=== PATIENT | female | born 1995 | race Caucasian/White ===

== ENCOUNTER 2019-08-03 09:54 | Emergency (ER) | payer OTHER, SELFPAY ==
[2019-08-03 09:57] VITALS: BP 122/79; PULSE 79; RESP 18; TEMP 36.3; O2SAT 100
--- NOTE | 2019-08-03 10:18 | ED.NAVMDI ---
HPI - Nausea/Vomiting/Diarrhea General Chief complaint: Nausea/Vomiting/Diarrhea Stated complaint: n/v/d Time Seen by Provider: 08/03/19 10:04 History of Present Illness HPI Narrative: SHe has had nausea, vomiting, and diarrhea since yesterday. She has nt been able to keep down any fluids or solid food. She developed some mild suprapubic pain after vmiting today. No fever, sick contacts, SOB. Related Data Allergies Allergy/AdvReac Type Severity Reaction Status Date / Time codeine Allergy Severe Anaphylaxis Verified 08/03/19 10:18 Penicillins Allergy Severe Anaphylaxis Verified 08/03/19 10:18 shellfish derived Allergy Severe Anaphylaxis Verified 08/03/19 10:18 ibuprofen [From Advil] Allergy Intermediate Hives Verified 08/03/19 10:18 iodine Allergy Intermediate Hives Verified 08/03/19 10:18 Review of Systems Review of Systems: All systems reviewed & are unremarkable except as noted in HPI and below Constitutional: Constitutional: Denies fever(s) Eyes: Eyes: Reports no additional eye complaints ENT: Denies sore throat Cardiovascular: Cardiovascular: Denies chest pain Respiratory: Respiratory: Denies cough and Denies dyspnea Gastrointestinal: Gastrointestinal: Reports abdominal pain, Reports diarrhea, Reports nausea and Reports vomiting Genitourinary: Genitourinary: Denies hematuria and Denies dysuria Musculoskeletal: Musculoskeletal: Denies myalgias Neurologic: Denies dizziness and Denies weakness Endocrine: Endocrine: Denies polydipsia and Denies polyuria Hematologic/Lymphatic: Hematologic/Lymphatic: Denies easy bleeding and Denies easy bruising PMFSH Family History Family History Other Hypertension Social History Social History Smoking status: Current every day smoker Alcohol intake: current Gender identity (if verbalized by the patient): Female Exam Const: General: no acute distress and alert Orientation/consciousness: patient oriented x3 HENMT: Mouth: Yes dry mucous membranes Resp: Effort & Inspection: normal respiratory effort Auscultation: clear to auscultation bilaterally Cardio: Rate: regular rate Rhythm: regular rhythm GI: GI Palp: Yes Soft to palpation and No Tenderness to palpation present (GI) Auscultation: normal bowel sounds : General: Yes no CVA tenderness Skin: General skin exam: normal color Rashes: no rashes Wounds: no wounds Neuro: General: patient oriented x3, moves all extremities and no focal motor deficits Speech: normal speech Gait exam (Neuro): Normal gait present Extrem: General: normal to inspection Psych: Appearance: grossly normal Mental Status: mental status grossly normal Affect: normal affect Thought content: Yes Normal thought content present Course Vital Signs Vital signs: Vital Signs Temperature 36.3 C L 08/03/19 09:57 Pulse Rate 79 08/03/19 09:57 Respiratory Rate 18 08/03/19 09:57 Blood Pressure 122/79 08/03/19 09:57 Pulse Oximetry 100 08/03/19 09:57 Temperature 36.3 C L 08/03/19 09:57 Pulse Rate 70 08/03/19 12:51 Respiratory Rate 16 08/03/19 12:51 Blood Pressure 112/69 08/03/19 12:51 Pulse Oximetry 100 08/03/19 12:51 MDM - Nausea/Vomiting/Diarrhea Differential Diagnosis Differential diagnosis: Likely food poisoning, gastroenteritis and dehydration Medical Records Attestation: I reviewed the patient's medical records. Lab Data Attestation: I reviewed the patient's lab results. Result diagrams: 08/03/19 10:22 08/03/19 10:22 Labs: Lab Results 08/03/19 08/03/19 08/03/19 Range/Units 10:22 10:22 10:22 WBC 9.2 (4.5-10.0) K/mm3 RBC 5.22 (4.2-5.4) M/mm3 Hgb 15.4 H (12.0-15.0) g/dL Hct 46.0 (37.0-47.0) % MCV 88.1 (80-100) fl MCH 29.5 (26-34) pg MCHC 33.5 (32-36) g/dl RDW 12.7 (11.5-14.5) % Plt Count 235 (150
[2019-08-03 10:26] VITALS: BP 114/70; PULSE 66
[2019-08-03 10:27] VITALS: BP 116/74; PULSE 76
[2019-08-03 10:28] VITALS: BP 102/60; PULSE 82
[2019-08-03 10:29] LABS: Basophils Percent Auto 0.2 % (0.2-1.2); Eosinophils Absolute Auto 0.5 K/mm3 (0-0.3); Eosinophils Percent Auto 5.9 % (0-4.4); Hemoglobin 15.4 g/dL (12.0-15.0); Immature Granulocyte Absolute 0.02 K/mm3 (0.00-0.031); Immature Granulocyte Percent A 0.2 % (0-0.5); Lymphocytes Absolute Auto 1.28 K/mm3 (0.9-3.2); Lymphocytes Percent Auto 13.9 % (18.3-44.2); Mean Corpuscular HGB Conc 33.5 g/dl (32-36); Mean Corpuscular Hemoglobin 29.5 pg (26-34); Mean Corpuscular Volume 88.1 fl (80-100); Mean Platelet Volume 9.3 fl (7.4-10.4); Monocytes Absolute Auto 0.5 K/mm3 (0.1-0.6); Monocytes Percent Auto 5.5 % (2.6-8.5); Neutrophils Absolute Auto 6.9 K/mm3 (1.3-6.7); Neutrophils Percent Auto 74.3 % (45.5-73.1); Platelet Count Result 235 k/mm3 (150-375); Red Blood Count 5.22 M/mm3 (4.2-5.4); Red Cell Distribution Width 12.7 % (11.5-14.5); White Blood Count 9.2 K/mm3 (4.5-10.0)
[2019-08-03] MEDS: SODIUM CHLORIDE 0.9% IV 2,000 ML 999 ML IV CONT (10:30)
[2019-08-03 10:31] LABS: Add Urine Microscopic? NO; Appearance Urine Clear (Clear); Bilirubin Urine Negative (Negative); Blood Urine Negative (Negative); Color Urine Yellow (Yellow); Glucose Urine UA Negative (Negative); Ketones Urine Negative (Negative); Leukocyte Esterase Ur Negative LEU/UL (Negative); Nitrate Urine Negative (Negative); Protein Urine Negative (Negative); Specific Grav Ur 1.016 (1.001-1.035); Urobilinogen Urine Negative mg/dL (<2.0)
[2019-08-03] MEDS: ONDANSETRON INJ 4 MG/2 ML VIAL IV PUSH (10:32)
[2019-08-03 10:40] LABS: Alanine Aminotransferase 17 U/L (4-35); Alkaline Phosphatase 92 U/L (38-126); Aspartate Amino Transferase 19 U/L (14-36); Bilirubin,Total 0.7 mg/dL (0.2-1.3); Blood Urea Nitrogen 13 mg/dL (7-17); Calcium 9.2 mg/dL (8.4-10.2); Carbon Dioxide 20 mmol/L (22-30); Chloride 108 mmol/L (98-107); Estimated CRCL calculation 94 ml/min; Estimated Glomerular Filt Rate > 60; Glucose 92 mg/dL (65-105); Lipase 76 U/L (23-300); Potassium 3.6 mmol/L (3.4-5.0); Sodium 138 mmol/L (137-145)
[2019-08-03 12:51] VITALS: BP 112/69; PULSE 70; RESP 16; O2SAT 100
== END 2019-08-03 12:52 | disposition home or self-care (01) ==
PROVIDERS: Emergency Provider Emergency Medicine; PCP Family Medicine
DX: K52.9 Noninfective gastroenteritis and colitis, unspecified (principal); F17.200 Nicotine dependence, unspecified, uncomplicated
CPT/HCPCS: 36415; 80053; 81003; 81025; 83690; 85025; 96361; 96374; 99284; J2405; J7030

== ENCOUNTER 2024-05-15 15:36 | Emergency (ER) | payer OTHER, SELFPAY ==
--- NOTE | ~2024-05-15 | XR_ITS ---
EXAMINATION: XR chest 2V DATE: 05/15/2024 16:45 INDICATION: 5 days of productive cough TECHNIQUE: PA and lateral views of the chest were obtained. COMPARISON: Chest radiograph dated 01/26/2015 FINDINGS: The lungs remain clear with no focal airspace opacities, pulmonary edema, pleural effusion or pneumot horax. The cardiomediastinal silhouette is normal. Visualized bones and soft tissues are unremarkable . IMPRESSION: 1. Normal chest radiograph. Reviewed, dictated and finalized at location A. YTICAL LAB TECHNICIAN IMPRESSION: 1. Normal chest radiograph.
[2024-05-15 15:47] VITALS: BP 129/74; PULSE 85; RESP 20; TEMP 36.8; O2SAT 100
--- NOTE | 2024-05-15 16:38 | ED.URI ---
HPI - URI/Sore Throat General Chief Complaint: Upper Respiratory Infection Stated Complaint: Sinus/Bodyaches Time Seen by Provider: 05/15/24 17:12 Source: patient, RN notes reviewed and old records reviewed Mode of arrival: ambulatory Limitations: no limitations History of Present Illness HPI Narrative: Patient presents with complaints of 5 days of fever, cough, body aches, chills, sweats. Her mother has just been hospitalized with ?walking pneumonia?. Patient reports that she is very concerned that she has the same thing, because she does have asthma. She reports that she has had some episodes of wheezing. She is not in any distress at this time, including respiratory distress. She states that she has been using her albuterol inhaler more often than normal due to her cough. She voices no other concerns or complaints at this time. States that she has been taking Tylenol intermittently for symptoms with moderate relief Related Data Home Medications ?Medication ?Instructions ?Recorded ?Confirmed ?Last Taken ?Type aripiprazole 10 mg disintegrating mg 05/15/24 Unknown History tablet levetiracetam 1,000 mg tablet mg PO 05/15/24 Unknown History lorazepam 0.5 mg tablet mg 05/15/24 Unknown History oxcarbazepine 300 mg tablet mg 05/15/24 Unknown History paroxetine HCl 40 mg tablet mg PO 05/15/24 Unknown History quetiapine 50 mg tablet mg 05/15/24 Unknown History Allergies Allergy/AdvReac Type Severity Reaction Status Date / Time codeine Allergy Severe Anaphylaxis Verified 05/15/24 15:55 Penicillins Allergy Severe Anaphylaxis Verified 05/15/24 15:55 shellfish derived Allergy Severe Anaphylaxis Verified 05/15/24 15:55 ibuprofen (From Advil) Allergy Intermediate Hives Verified 05/15/24 15:55 iodine Allergy Intermediate Hives Verified 05/15/24 15:55 Review of Systems Review of Systems: All systems reviewed & are unremarkable except as noted in HPI and below Constitutional: Constitutional: Reports no additional constitutional complaints, Reports body ache(s), Reports chills, Reports fever(s), Reports headache(s) and Reports lethargy ENT: Reports system reviewed and no additional complaints, except as documented, Reports nasal congestion and Reports nasal discharge Cardiovascular: Cardiovascular: Reports no additional cardiovascular complaints Respiratory: Respiratory: Reports no additional respiratory complaints, Reports cough and Reports wheezing Gastrointestinal: Gastrointestinal: Reports no additional gastrointestinal complaints PMFSH Family History Family History Other Hypertension Social History Social History Smoking status: Current every day smoker Alcohol intake: current Gender identity (if verbalized by the patient): Female Comments At the time of my signature, I reviewed and agree with the nursing past medical, surgical, social, and family history. There is no relevant family history pertinent to the patient complaint. Exam Const: General: cooperative, no acute distress, alert and awake Orientation/consciousness: oriented to person, oriented to place and oriented to time HENMT: Head: normal to inspection Ears: TM's normal bilaterally Mouth: Yes moist mucous membranes Resp: Effort & Inspection: normal respiratory effort and able to speak in complete sentences Auscultation: clear to auscultation bilaterally, no crackles, no rales, no rhonchi and no wheezes Cardio: Palpation: normal PMI Rate: regular rate Rhythm: regular rhythm Heart sounds: S1 normal heart sound present and S2 normal heart sound present Neuro: General: oriented to person, oriented to place and oriented to time Cranial nerves: Yes CN's II-XII intact bilaterally Psych: Appearance: grossly normal Thought process: Normal thought process present Insight: Good insight present (Psych) Judgement: Good judgement present (Psych) Course Course Level of Care: Express Care Visit Vital Signs Vital signs: Vital Signs Temperature 98.3 F 05/15/24 15:47 Pulse Rate 85 05/15/24 15:47 Respiratory Rate 05/15/24 15:47 Blood Pressure 129/74 05/15/24 15:47 Pulse Oximetry 100 05/15/24 15:47 Oxygen Delivery Room Air 05/15/24 15:47 Temperature 98.3 F 05/15/24 15:47 Pulse Rate 85 05/15/24 15:47 Respiratory Rate 05/15/24 15:47 Blood Pressure 129/74 05/15/24 15:47 Pulse Oximetry 100 05/15/24 15:47 Oxygen Delivery Room Air 05/15/24 15:47 Reviewed MDM - URI/Sore Throat MDM Narrative Medical decision making narrative: Patient with history asthma, using inhaler more than normal. Negative flu, negative chest. Start prednisone burst, refill albuterol Discharge instructions reviewed with patient, as well as provided in writing per nursing staff. The instructions also include specific and strict return/GO TO THE ER as well as f/u information. All questions have been answered, and the patient deny any further questions with discharge and discharge plan. Some parts of this dictation were generated by voice recognition software and may contain typographical and/or grammatical inaccuracies. . Differential Diagnosis Differential diagnosis: Likely upper respiratory infection, sinusitis, viral infection, bronchitis and influenza Medical Records Attestation: I reviewed the patient's medical records. Lab Data Attestation: I reviewed the patient's lab results. Imaging Data Attestation: I personally reviewed and interpreted this imaging study as follows: My impression: No acute process Radiologist's impression: [facility] [address] [place] [address] XRay Report Signed Patient: Myrna Barclay : 1995 MR#: [id number] Age: 28 Acct:[id number] Loc: [facility] ADM Date: 05/15/24Attending Dr: Ordering Physician: Macey Quintero FNP Date of Service: 05/15/24 Procedure(s): XR chest 2V Accession Number(s): [id number] cc: Macey Quintero FNP; SENIOR CONTROL SYSTEMS ENGINEER PHYSICIAN~ EXAMINATION: XR chest 2V DATE: 05/15/2024 16:45 INDICATION: 5 days of productive cough TECHNIQUE: PA and lateral views of the chest were obtained. COMPARISON: Chest radiograph dated 01/26/2015 FINDINGS: The lungs remain clear with no focal airspace opacities, pulmonary edema, pleural effusion or pneumothorax. The cardiomediastinal silhouette is normal. Visualized bones and soft tissues are unremarkable. IMPRESSION: 1. Normal chest radiograph. Reviewed, dictated and finalized at location A. PPING SHOVEL OILER Please be advised this is a medical document. It is intended for [id number] communication. It is written in medical language and may contain unfamiliar abbreviations or verbiage. Medical documents are intended to carry relevant information, facts as evident, and the clinical opinion of the practitioner at the time of the encounter. This report may have been done utilizing a voice recognition system. Attempts have been made to correct errors. However, there may be uncorrected grammatical, spelling, and recognition errors present. The file time of this note does not necessarily represent the time of service. Dictated By: Mumtaz Ward MD 05/15/24 1658 Signed By: <Electronically signed by Mumtaz Ward MD in OV> Discharge Plan Discharge Clinical Impression: Upper respiratory infection Qualifiers: URI type: unspecified viral URI Qualified Code(s): J06.9 - Acute upper respiratory infection, unspecified Patient Disposition: Home, Self-Care Condition: Stable Instructions: Antibiotic Form, Influenza (ED) Additional Instructions: Use medications as prescribed. Follow with primary care provider. Emergency department for new or worse symptoms Patient Language: Swedish Prescriptions: New albuterol sulfate [Ventolin HFA] 90 mcg/actuation HFA aerosol inhaler 2 puff inhalation QID PRN (Reason: shortness of breath or wheezing) Qty: 8.5 0RF prednisone 50 mg tablet 50 mg PO DAILY Qty: 5 0RF No Action oxcarbazepine 300 mg tablet lorazepam 0.5 mg tablet paroxetine HCl 40 mg tablet PO quetiapine 50 mg tablet levetiracetam 1,000 mg tablet PO aripiprazole 10 mg tablet,disintegrating Follow-up/Referrals: PHYSICIAN,SENIOR CONTROL SYSTEMS ENGINEER [Primary Care Provider] - Time of Disposition: 17:18
[2024-05-15 17:05] LABS: EDINFLUASCREEN Negative (Negative); EDINFLUBSCREEN Negative (Negative)
== END 2024-05-15 17:28 | disposition home or self-care (01) ==
PROVIDERS: Emergency Provider Nurse Practitioner Family
DX: J06.9 Acute upper respiratory infection, unspecified (principal); Z20.822 Contact with and (suspected) exposure to COVID-19; F17.200 Nicotine dependence, unspecified, uncomplicated; J45.909 Unspecified asthma, uncomplicated
CPT/HCPCS: 71046; 87804; 99213; G0463

== ENCOUNTER 2024-05-26 06:02 | Inpatient (IN) | payer OTHER, SELFPAY ==
[2024-05-26] VITALS (15 sets, daily range): BP systolic 90–133; BP diastolic 41–87; PULSE 81–113; RESP 16–20; TEMP 36.9–39.6; O2SAT 96–100; BMI 28.9; BMI 28.8
--- NOTE | ~2024-05-26 | XR_ITS ---
EXAMINATION: XR chest 1V portable DATE: 05/29/2024 14:30 INDICATION: Pneumonia with right rib pain TECHNIQUE: frontal view of the chest was obtained. COMPARISON: Chest radiograph dated 05/26/2024 FINDINGS: Unchanged patchy airspace opacities in the right lower lung zone with worsening opacities in the midl gutierrez zone which abut the cephalad margin of the minor fissure likely in the right upper lobe. Left geraldine g remains clear. No pulmonary edema, pleural effusion or pneumothorax. The cardiomediastinal silhouet te is normal. Cholecystectomy clips in right upper quadrant. IMPRESSION: 1. Worsening airspace opacities in the right midlung zone with persistent opacity right lower lung zo ne consistent with worsening multifocal pneumonia. Reviewed, dictated and finalized at location A. RITY TEST ENGINEER IMPRESSION: 1. Worsening airspace opacities in the right midlung zone with persistent opaci ty right lower lung zone consistent with worsening multifocal pneumonia.
--- NOTE | ~2024-05-26 | XR_ITS ---
Clinical Indication: Cough PA and lateral views of the chest: Comparison: 05/15/2024 Findings: There is patchy consolidation involving the right middle and lower lobes. Possible minimal involvement at the right upper lobe and left lower lobe.. Cardiomediastinal silhouette is within nor mal limits. Bones and soft tissues are unremarkable. Impression: Multilobar pneumonia, worst in the right middle and lower lobes. Probable minimal involvement of the right upper and left lower lobes. Reviewed, dictated and finalized at location . JOINTER FEEDER Impression: Multilobar pneumonia, worst in the right middle and lower lobes. Probable minim al involvement of the right upper and left lower lobes.
[2024-05-26 06:57] LABS: Influenza A QL RT-PCR Positive (Negative); Influenza B QL RT-PCR Negative (Negative); RSV RNA, RT-PCR Negative (Negative); SARS-CoV-2 RNA PCR Negative (Negative)
--- OUTSIDE RECORDS SUMMARY | 2024-05-26 07:18 | XMS_ITS | Clinical Summary ---
Author Organization [facility] [employer] Address [address] [place] [address] Care Team Providers Care Railroad Brake Operator Name Role Phone Unavailable Primary Care Provider Unavailabl e Source Comments [facility],non-owned Affiliates and Associated Physician Practices is amultiple site organization consisting of ambulatory clinics and hospital sitesin [place], [place], [place] and [place]. This disclosure is being madepursuant to the Care Everywhere program and may not contain all information available regarding this patient. Last updated 18.[facility] [employer] Active Problems Patient Care Coordination No te Formatting of this note migh t be different from the original. Didn't see any genetic testing the records??? Problem Noted Date Diagnosed Date cardiac echogenic focus 06/02/2016 Encounter for supervision of normal first in second trimester 06/02/2016 Social History Tobacco Use Types Packs/Day Years Used Date Smoking Tobacco: Never Assessed Sex and Gender Information Value Date Recorded Sex Assigned at Female 06/03/2023 1:35 PM PEDIATRIC INTENSIVE PHYSICIAN Gender Identity Female 06/03/2023 1:35 PM PEDIATRIC INTENSIVE PHYSICIAN Sexual Orientation Straight 06/03/2023 1: 35 PM PEDIATRIC INTENSIVE PHYSICIAN Plan of Treatment Health Maintenance Due Date Last Done Comments PAP SMEAR 1995 HIV SCREENING 2009 HEPATITIS C SCREENING 05/23/2012 DTAP/TDAP/TD VACCINES (1 - Tdap) 2013 HEPATITIS B VACCINE (1 of 3 - 19+ 3-dose series) 2013 COVID-19 VACCINE (2023-2 5 season) 2023 INFLUENZA VACCINE (#1) 2023 DEPRESSION SCREENING 04/23/2024 ZOSTER VACCINE (1 of 2) 2044 HIB VACCINE Aged Out No longer eligi ble based on patient's age to complete this topic HPV VACCINE Aged Out No longer eligi ble based on patient's age to complete this topic MENINGOCOCCAL (Group B) VACCINE Aged Out No longer eligible based on patient's age to complete this topic MENINGOCOCCAL VACCINE Aged Out No jayson hamilton eligible based on patient's age to complete this topic PNEUMOCOCCAL VACCINE Aged Out No long er eligible based on patient's age to complete this topic
--- OUTSIDE RECORDS SUMMARY | 2024-05-26 07:19 | XMS_ITS | Referral Summary ---
Author Organization [facility] [email or web address] Address [address] [place] [address] Care Team Providers Care Salesperson Sheet Music Name Role Phone Unavailable Primary Care Provider Unavailabl e Source Comments [facility],non-owned Affiliates and Associated Physician Practices is amultiple site organization consisting of ambulatory clinics and hospital sitesin [place], [place], [place] and [place]. This disclosure is being madepursuant to the Care Everywhere program and may not contain all information available regarding this patient. Last updated 18.[facility] [email or web address] Active Problems Patient Care Coordination No te [...] Sex Assigned at Female 06/03/2023 1:35 PM DEXTRINE MIXER Gender Identity Female 06/03/2023 1:35 PM DEXTRINE MIXER Sexual Orientation Straight 06/03/2023 1: 35 PM DEXTRINE MIXER Plan of Treatment Not on file
--- OUTSIDE RECORDS SUMMARY | 2024-05-26 07:19 | XMS_ITS | Clinical Summary ---
Author Organization [facility] Address [address] [place] [address] Care Team Providers Care Nut Tightener Name Role Phone Gomez Aceves MD Primary Care Provider [phone] Madeline Kim NP Unavailable [phone] Allergies Active Allergy Reactions Criticality Noted Date Comments Codeine Edema,Hives Medium 02/20/2020 Ibuprofen Swelling Medium 02/20/2020 Advil Iodine Rash Medium 02/20/2020 Penicillins Swelling,Shortness o f breath High 11/26/2017 Breathing Difficulty Shellfish Containing Products Anaphylaxis High 02/20/2020 Medications PARoxetine (PAXIL) 40 mg tablet Take 1 tablet (40 mg total) by mouth every morning 90 tablet 3 06/07/19 24 025 Active cetirizine (ZyrTEC) 10 mg tablet Take 1 tablet (10 mg total) by mouth daily as needed for allergies 30 tablet 4 06/07/19 24 025 Active meclizine (ANTIVERT) 12.5 mg tablet Take 1 tablet (12.5 mg total) by mouth 3 (three) times a day as needed for dizziness 90 tablet 4 08/01/19 24 Active cyclobenzaprine (FLEXERIL) 10 mg tablet Take 1 tablet (10 mg total) by mouth 3 (three) times a day as needed for muscle spasms 20 tablet 09/24/19 24 Active QUEtiapine (SEROquel) 50 mg tablet Take 1 tablet (50 mg total) by mouth nightly 30 tablet 2 10/02/19 24 Active Additional Information Patient taking differently:50 mg oralEvery other day, Reported on 10/16/2023 ARIPiprazole (ABILIFY) 10 mg disintegrating tablet Take 1 tablet (10 mg total) by mouth daily 30 tablet 10/02/19 24 Active triamcinolone (KENALOG) 0.1 % ointment Apply topically 2 (two) times a day as needed for irritation or rash 60 g 5 10/02/19 24 Active levETIRAcetam (KEPPRA) 1,000 mg tabletIndications: Nonintractable generalized idiopathic epilepsy without status epilepticus (HCC) Take 1 tablet (1,000 mg total) by mouth 2 (two) times a day 180 tablet 3 11/05/19 24 Active OXcarbazepine (TRILEPTAL) 300 mg tabletIndications: Migraine with aura and without status migrainosus, not intractable Take 1 tablet (300 mg total) by mouth 2 (two) times a day 180 tablet 3 11/05/19 24 Active LORazepam (ATIVAN) 0.5 mg tablet Take 1 tablet (0.5 mg total) by mouth daily as needed for anxiety 30 tablet 05/19/19 25 Active LORazepam (ATIVAN) 0.5 mg tablet TAKE 1 TABLET(0.5 MG) BY MOUTH DAILY NEEDED FOR ANXIETY 30 tablet 12/10/19 24 025 Discontin ued(Reord er) Active Problems Problem Noted Date Diagnosed Date Hyperthyroidism 11/16/2023 Palpitations 10/16/2023 Assessment & Plan (10/16/2023 9:32 AM CDT): This is a chronic problem for years. We will check EKG, Holter, and echo. EKG SHOWS SINUS RHYTHM WITH RATE OF 105. NO ISCHEMIA. NO HYPERTROPHY. NO ARRHYTHMIAS. NORMAL AXIS. NORMAL INTERVALS. Abnormal ear exam 10/16/2023 Assessment & Plan (10/16/2023 9:04 AM CDT): Abnormal ear exam with some inflammation and evidence of perforation right ear Chronic fatigue 10/16/2023 Assessment & Plan (10/16/2023 9:30 AM CDT): Some chronic fatigue and family history of thyroid problem so we will check TSH. Drowsiness 10/02/2023 Assessment & Plan (10/02/2023 8:19 AM CDT): Worsening drowsiness. Decrease Seroquel to 50 mg. Add aripiprazole 5 mg continue Paxil 40 mg Dizziness 08/01/2023 Assessment & Plan (10/16/2023 9:01 AM CDT): This is a chronic problem going on for years. We will check EKG, Holter, and echocardiogram. This is somehow got tight and with some intermittent back pain that last for few minutes a time. Associated palpitations Assessment & Plan (08/01/2023 10:13 AM CDT): Exam is suggestive of peripheral vertigo. We will give some Antivert. If not better referral to ENT Hallucination 07/31/2023 Assessment & Plan (10/16/2023 9:01 AM CDT): Improved. Continue aripiprazole and discontinue Seroquel Assessment & Plan (10/02/2023 8:20 AM CDT): No difference. We will decrease Seroquel to 50 mg. Add aripiprazole 5 mg. Assessment & Plan (08/01/2023 10:12 AM CDT): Increase Seroquel to 200 mg and re-evaluate few weeks Allergic dermatitis 06/07/2023 Assessment & Plan (10/02/2023 8:21 AM CDT): Sounds like rash is either related to her nerves or 2 allergic-type sensitivity. Is on both arms and legs. Will try some triamcinolone cream. We will try dermatology referral. Assessment & Plan (06/07/2023 11:46 AM MANAGER MANAGEMENT): Discontinue Wellbutrin. May be allergic. No signs of infection or MRSA at this time. Previously had MRSA in foot. Appears to be an allergic rash. We will treat with Zyrtec and short course of oral steroids. Chronic anxiety 05/22/2023 Assessment & Plan (10/14/2023 4:00 PM CDT): Continue Ativan at same dosage. Well controlled. Assessment & Plan (09/30/2023 2:35 PM CDT): Continue lorazepam at same dosage. Well controlled. Assessment & Plan (07/31/2023 9:36 AM CDT): Continue Ativan at same dosage. Well controlled. Discussed that these medicines can be habit-forming and cause drowsiness. She not do anything dangerous when taking these medicines such as driving. Discussed that these medicines may impaired judgment even if drowsiness not noticed. Discussed other alternatives for managing anxiety such as behavioral measures, exercise, and non habit-forming medications. Assessment & Plan (06/06/2023 7:46 AM MANAGER MANAGEMENT): Improved on higher dosage of Ativan b.i.d.. Assessment & Plan (05/24/2023 11:14 AM MANAGER MANAGEMENT): We will give her 0.5 mg b.i.d. because of affect is not lasting long enough. Panic attack 04/26/2023 Assessment & Plan (06/06/2023 7:46 AM MANAGER MANAGEMENT): Continue Paxil at same dosage. Well controlled. Assessment & Plan (05/24/2023 11:19 AM MANAGER MANAGEMENT): Continue Paxil at same dosage. Well controlled.. Assessment & Plan (04/26/2023 10:38 AM MANAGER MANAGEMENT): It sounds like she is getting discrete panic attacks no more than once a day. We will try switching to Paxil. Discontinue Prozac Agitation 04/25/2023 Assessment & Plan (05/24/2023 11:13 AM MANAGER MANAGEMENT): We will give her Ativan 0.5 mg b.i.d. as it is not lasting all day with control of anxiety and agitation. Discussed that these medicines can be habit-forming and cause drowsiness. She not do anything dangerous when taking these medicines such as driving. Discussed that these medicines may impaired judgment even if drowsiness not noticed. Discussed other alternatives for managing anxiety such as behavioral measures, exercise, and non habit-forming medications. Assessment & Plan (04/26/2023 10:37 AM MANAGER MANAGEMENT): More of a problem in the morning. Increasing Seroquel to 100 mg allow 0.5 mg in the morning. Discussed that these medicines can be habit-forming and cause drowsiness. She not do anything dangerous when taking these medicines such as driving. Discussed that these medicines may impaired judgment even if drowsiness not noticed. Discussed other alternatives for managing anxiety such as behavioral measures, exercise, and non habit-forming medications. Severe bipolar I disorder with depression ([facility]/ [facility]) 04/02/2023 Assessment & Plan (04/02/2023 10:37 AM MANAGER MANAGEMENT): Worsening of severe bipolar depression. Not suicidal/homicidal. No substance use. Problems with agitation. Anger issues. Recommend Psychiatry. Start on Prozac 10 mg daily along with Seroquel 50 mg HS. Mixed headache 04/02/2023 Assessment & Plan (04/02/2023 10:37 AM MANAGER MANAGEMENT): Worsening of chronic mixed headache. Offered Inderal but declined. She is currently following with Neurology. History of substance use 03/06/2023 Bipolar depression ([facility]) 02/21/2023 Assessment & Plan (10/16/2023 9:03 AM CDT): Much improved. Continue aripiprazole/Paxil at same dosage. Well controlled. Assessment & Plan (10/02/2023 8:21 AM CDT): No better. Decrease Seroquel to 50 mg add aripiprazole 5 mg continue Paxil 40 mg. Can not take Wellbutrin because of history of seizures. Assessment & Plan (08/01/2023 10:12 AM CDT): Depression is well controlled but needs improvement in manic symptoms. Not suicidal/homicidal. No substance use will increase Seroquel to 200 mg maintain Paxil at 40 mg Assessment & Plan (06/07/2023 11:48 AM MANAGER MANAGEMENT): We will increase Paxil to 40 mg. Discontinue Wellbutrin as it seems to be lowering her seizure threshold Assessment & Plan (05/24/2023 11:16 AM MANAGER MANAGEMENT): Improved but needs further improvement. No history of seizures. Has been on Wellbutrin previously. We will add Wellbutrin to the Paxil. Assessment & Plan (04/26/2023 10:37 AM MANAGER MANAGEMENT): But needs further improvement. As also panic attacks we will try switching from Prozac to Paxil 20 mg HS. Previous side effects on Lexapro. Elevated serum glucose 02/21/2023 Assessment & Plan (04/02/2023 10:39 AM MANAGER MANAGEMENT): Only 1 reading elevated. Patient was encouraged to decrease the sugar and starch in diet. This means avoiding juices and sugar sweetened drinks. Patient should limit REFINED carbohydrates such as bread, rice, cereal pasta, and mashed potatoes. Regular exercise for more than 30 minutes t most days was encouraged to further improve blood sugar. The main fruit to avoid are grapes , pineapple, and bananas. Encouraged to maintain vegetables. Will need repeat labs Atypical chest pain 02/03/2023 Mild intermittent asthma without complication Assessment & Plan (03/29/2023 4:07 PM MANAGER MANAGEMENT): Infrequent need for rescue inhaler no nocturnal symptoms Nonintractable generalized i diopathic epilepsy without status epilepticus 02/20/2020 Assessment & Plan (04/18/2021 11:34 AM MANAGER MANAGEMENT): Patient continues on levetiracetam 1500 mg b.i.d.. As she may have had an unwitnessed seizure I have suggested that she remain without driving until filling a 6 month asymptomatic seizure interval. She will follow-up in neurology clinic in 6 months for reassessment. Assessment & Plan (06/02/2020 10:03 AM MANAGER MANAGEMENT): Patient continues on levetiracetam 1500 mg b.i.d. at this time. She has had no interval documented seizures. She has good tolerability with medication. It will be continued as currently prescribed. Assessment & Plan (02/20/2020 10:01 AM CDT): Patient's former patient of [facility]. Prior medical records from [facility] have been obtained and reviewed with patient during today's visit. She has been prescribed levetiracetam 1500 mg b.i.d. with good tolerability and no seizures over the past year. She is in need of refill of medication. I have renewed her levetiracetam at 1500 mg b.i.d. as previously scheduled, and I plan to see her back in 6 months. Migraine without aura, not i ntractable, without status migrainosus 02/20/2020 Assessment & Plan (06/06/2023 7:47 AM MANAGER MANAGEMENT): Continue Trileptal at same dosage. Well controlled. Assessment & Plan (05/22/2023 1:32 PM MANAGER MANAGEMENT): Continue Oxcarbazepine at same dosage. Well controlled. Assessment & Plan (04/25/2023 8:22 AM MANAGER MANAGEMENT): Continue medication at same dosage. Well controlled. Oxcarbazepine. Assessment & Plan (03/29/2023 4:10 PM MANAGER MANAGEMENT): Continue Trileptal at same dosage. Well controlled. Assessment & Plan (04/18/2021 11:35 AM MANAGER MANAGEMENT): Patient developed untoward sedation with amitriptyline. In substitution I will place her on a trial of nortriptyline 25 mg HS and obtain an MRI brain to exclude any structural abnormalities to account for her worsening headaches. She will follow-up in neurology clinic in 6 months for reassessment. Assessment & Plan (06/02/2020 10:04 AM MANAGER MANAGEMENT): Patient has not increased her amitriptyline to 50 mg as previously recommended. She chose to stay on 25 mg HS and has not noticed a reduction in headache frequency or severity. She presents today with a 5 day history of acute onset migraine headache that is not responding to abortive treatment her symptomatic anti-inflammatories. She says she has nausea and is unable to keep medication down. I have suggested that she present to [facility] for consideration of further evaluation and potential parental analgesic medication. I have also suggested that she increase her baseline amitriptyline to 50 mg as earlier recommended. I have renewed her medication of amitriptyline 50 mg HS, and I plan to see her back for reassessment in 6 months. Assessment & Plan (02/20/2020 10:02 AM CDT): Patient has noted increase in migraine frequency despite using topiramate 150 mg b.i.d. for migraine prophylaxis and previously sumatriptan and more recently rimegepant for abortive seizure control. She notices that her headache frequency is increased with aggravated sleep patterns. In lieu of topiramate which I will have her discontinue, I will place her on an escalating trial of amitriptyline initially 25 mg HS for 1 week, then 50 mg HS thereafter. I will see her back in the office in 6 months for reassessment. Mood disorder 08/28/2019 Hyperkalemia 07/02/2019 Asthma 07/03/2017 Hypertriglyceridemia 07/03/2017 Assessment & Plan (03/29/2023 4:08 PM MANAGER MANAGEMENT): Discussed that elevated triglycerides at best treated by diet. Encourage ever to keep weight down and decrease fat and starches and diet other than vegetables. Less bread, rice, cereal, and other refined carbohydrates. Needs repeat labs Seizure disorder (CMS/HCC) 07/03/2017 Assessment & Plan (10/14/2023 3:59 PM CDT): Continue Keppra at same dosage. Well controlled. Assessment & Plan (09/30/2023 2:35 PM CDT): Continue oxcarbazepine/Keppra at same dosage. Well controlled. Assessment & Plan (08/01/2023 10:13 AM CDT): Continue Keppra at same dosage. Well controlled. May ultimately be tapered by Neurology as these are atypical seizure Assessment & Plan (06/07/2023 11:49 AM MANAGER MANAGEMENT): Continue Keppra at same dosage. This is being aggravated by the Wellbutrin and we will discontinue the Wellbutrin. Assessment & Plan (05/22/2023 1:32 PM MANAGER MANAGEMENT): Continue Keppra at same dosage. Well controlled. Also followed by Neurology. Assessment & Plan (04/25/2023 8:23 AM MANAGER MANAGEMENT): Continue Keppra. Management by Neurology Assessment & Plan (03/29/2023 4:10 PM MANAGER MANAGEMENT): Continu Keppra at same dosage. Well controlled. Vitamin D deficiency 07/03/2017 Assessment & Plan (03/29/2023 4:08 PM MANAGER MANAGEMENT): Not on Vitamin-D and needs repeat labs Family history of seizure disorder 05/09/2017 Immunizations Name Administration Dates Next Due DTaP 10/18/1999, 6,1994,10/11,1994 HPV, Unspecified 02/01/2009,12/01/2008 Hep A, Unspecified 11/01/2004,02/08/2004 Hep B, Adolescent or Pediatric 10/18/1999 Hep B, Unspecified 10/12/1999, 5,1994,05/28 HiB 06/24/1995, 5,1994,07/26 Influenza, Quadrivalent, Spl it, Preservative Free, Intramuscular 01/16/2019 Influenza, Split 03/01/1999 Influenza, Unspecified 06/07/2023(Deferr ed: Patient decision),03/06/2023(Deferred: Patient decision),03/24/2022(Deferred: Patient decision),02/06/2008,03/27/2007 MMR 10/18/1999,06/15/1995 Meningococcal ACWY, Unspecified 03/27/2007 OPV 10/18/1999 Rho (D) Immune Globulin, IV or IM 2016,05/22/2016,11/10/2014,08/14,07/01/2014 Tdap 12/15/2008 Varicella 03/27/2007,02/20/1997 Surgical History Surgery Date Site/Laterality Comments TUBAL LIGATION GALLBLADDER SURGERY US ABDOMEN COMPLETE W LIVER DOPPLER (C) 11/26/2017 R ight CHOLECYSTECTOMY TYMPANOSTOMY TUBE PLACEMENT Medical History Medical History Date Comments Seizure disorder (CMS/HCC) (HCC) Tobacco use Marijuana use Anemia Anxiety Asthma Meningitis Chronic bronchitis (HCC) Depression Migraines Hypertension Menstrual problem Bipolar depression (CMS/HCC) (HCC) Bipolar II disorder (CMS/HCC) (HCC) Atypical chest pain Family History Medical History Relation Name Comments No Known Problems Brother Depression Father Catracho Barclay Drug abuse Father Catracho Barclay Hypertension Father Catracho Barclay Alzheimer's disease Maternal Grandfather Catracho Calderon SR Allergy (severe) Maternal Grandmother Eliezer Call Cancer Maternal Grandmother Eliezer Call Diabetes Maternal Grandmother Eliezer Call Heart attack Maternal Grandmother Eliezer Call Memory loss Maternal Grandmother Eliezer Call Anxiety disorder Mother Bipolar disorder Mother Epilepsy Sister Hyperthyroidism Sister Relation Name Status Comments Brother Alive Father Catracho Barclay Alive Maternal Grandfather Catracho Call SR Maternal Grandmother Eliezer Call Mother Alive Sister Alive Social History Tobacco Use Types Packs/Day Years Used Date Smoking Tobacco: Every Day Cigarettes 0.5 15 Passive Smoke Exposure: Current Smokeless Tobacco: Never Tobacco Cessation:Ready to Q uit: No; Counseling Given: Yes Comments:Advised to quit smoking. AUDIT-C Answer Date Recorded Q1: How often do you have a drink containing alc ohol? Monthly or less 10/16/2023 Q2: How many drinks containi ng alcohol do you have on a typical day when you are drinking? 1 or 2 10/16/2023 Q3: How often do you have si x or more drinks on one occasion? Never 10/16/2023 PHQ-2 Answer Date Recorded PHQ-2 Total Score (If total score is 3 or more points, staff should administer the PHQ-9) 2 10/16/2023 Personal Safety Answer Date Recorded Have you ever been in or are you currently in a harmful physical or emotional relationship or is someone making you feel afraid or unsafe? Denies 08/10/2023 Comments No Sex and Gender Information Value Date Recorded Sex Assigned at Not on file Legal Sex Female 5:40 AM MANAGER MANAGEMENT Gender Identity Female 11/19/2022 3:56 PM CDT Sexual Orientation Straight 11/19/2022 3: 56 PM CDT Obstetrics History Last Filed Vital Signs Vital Sign Reading Time Taken Comments Blood Pressure 110/64 10/16/2023 8:27 AM CDT Pulse 92 10/16/2023 8:27 AM CDT Temperature 36.4 ??C (97.6 ??F) 10/16/2023 8:27 AM CD T Respiratory Rate 18 10/16/2023 8:27 AM CDT Oxygen Saturation 99% 10/16/2023 8:27 AM CDT Inhaled Oxygen Concentration - - Weight 85.5 kg (188 lb 8 oz) 10/16/2023 8:27 AM CDT Height 172.7 cm (5' 7.99 ) 10/16/2023 8:27 AM CD T Body Mass Index 28.67 10/16/2023 8:27 AM CDT Plan of Treatment Health Maintenance Due Date Last Done Comments Cervical Cancer Screening 1995 Hepatitis C Screening 1995 Pneumococcal vaccine <65 (1 of 2 - PCV) 2000 HPV Vaccines (3 - 2-dose series) 06/03/2009 02/02/20 09, 12/01/2008 Regular Well Visit/Exam 18-64 2012 DTaP/Tdap/Td Vaccine (7 - Td or Tdap) 12/15/2018 12/15/2008, 10/18/1999, 06/24/1995, Additional history exists Covid-19 Vaccine (3 - 2023-2 5 season) 2023 10/04/2020, 08/30/2020 Influenza Vaccine (#1) 2023 9, 02/06/2008, 03/27/2007, Additional history exists Depression Screening 10/15/2024 10/16/2023, 10/02/2023, 08/01/2023, Additional history exists Varicella Vaccines Completed 03/27/2007, 02/20/1997 Insurance Care Teams Nut Tightener Relationship Specialty Start Date End Date Gomez Aceves MD [address] [place] [address] PCP - General Family Medicine 04/02/23 Madeline Kim NP [address] [place] [address] Nurse Practitioner Neurology 04/02/23
--- OUTSIDE RECORDS SUMMARY | 2024-05-26 07:19 | XMS_ITS | Patient Health Summary ---
Author Organization [facility] Address [address] [place] [address] Care Team Providers Care Health Facilities Surveyor Name Role Phone Unavailable Primary Care Provider Unavailabl e Note from [facility],non-owned Affiliates and Associated Physician Practices is amultiple site organization consisting of ambulatory clinics and hospital sitesin [place], [place], [place] and [place]. This disclosure is being madepursuant to the Care Everywhere program and may not contain all information available regarding this patient. Last updated 18.[facility] Active Problems Problem Noted Date Diagnosed Date cardiac echogenic focus 06/02/2016 Encounter for supervision of normal first in second trimester 06/02/2016 Social History Tobacco Use Types Packs/Day Years Used Date Smoking Tobacco: Never Assessed Sex and Gender Information Value Date Recorded Sex Assigned at Female 06/03/2023 1:35 PM URBAN DESIGN CONSULTANT Gender Identity Female 06/03/2023 1:35 PM URBAN DESIGN CONSULTANT Sexual Orientation Straight 06/03/2023 1: 35 PM URBAN DESIGN CONSULTANT Procedures * SONOGRAM - COMPLETE(Performed 06/07/2016) Performed for Echogenic intracardiac focus of fetus on ultrasound Results * SONOGRAM - COMPLETE (06/07/2016 8:25 AM URBAN DESIGN CONSULTANT) Anatomical Region Laterality Modality Other 06/07/2016 8:25 AM URBAN DESIGN CONSULTANT Narrative 06/07/2016 12:26 PM URBAN DESIGN CONSULTANT ? [facility] ?PHONE: ??FAX: ? Pat. Name: ?KORY BARCLAY Pat. No: ?[id number] Study Date: ?? 06/07/2016 ??8:25am , Age: ? 1995, 21 Pregnancies: ?? 3, Para 1, Ab 1 Height: ? 69 in Weight: ? 250 lb LMP: ?01/09/2016 GA by LMP: ?21w3d GA by US: ? 20w2d GA Selected: ??20w3d (Outside Scan) HEYDI: ?10/22/2016 Referring MD: Dilia Herrera MD Weblogic Administrator: ??Elzbieta Baxter RDMS BMI: ?36.91 Hist/Ind: ? EIF on outside scan ? Anatomy Screen ?NIPT pending MEASUREMENTS & AGE ? GROWTH EVALUATION Measurement ??GA ? Range ? Srce %for GA Ratios ----- ---- ------- BPD ??4.7 cm 20w2d ([id number]) Hadl BPD 45% FL/BPD 0.68 HC ??17.2 cm 19w5d (78u5g-45q9d) Hadl HC ??30% FL/AC ??0.20 AC ??15.8 cm 21w0d (55o7n-99a8r) Hadl AC ??61% HC/AC ??1.09 (1.06 - 1.24) FL ?? 3.2 cm 20w0d (34c1r-78o4h) Hadl FL ??38% CI ? 0.79 (0.70 - 0.86) HL ?? 3.1 cm 20w2d (28h8g-91w0o) Be HL ??47% GA for sonogram 20w2d (67z1m-78n4d) ?? Weight Estimate: based on (BPD,HC,AC,FL) Avg ?Weight: 352 gm (301-404) Hadlock ? : 0lbs, 12oz ? Normal: 361 gm (300-422) Hadlock ? Wt% ? 44% for 20w3d Cervical Length: ??4.0 cm Heart Rate: 150 bpm DOPPLER Umbilical - Mid Cord S/D ??3.97(2.77 - 5.85) ? PI ?? 1.37 (0.97 - 1.60) ? CLINICAL SUMMARY Study Number: 1 A single fetus is identified in cephalic presentation. ??The measurements today are consistent with less than expected growth compared to previous examination. ??The HEYDI selected is based on her LMP and a prior ultrasound examination (confirmed). ??The amniotic fluid volume is within normal limits. ??The placenta is posterior not low lying. ??No major malformations are seen within the limitations of ultrasound examination. ??The patient was advised that ultrasound does not allow detection of all structural or chromosomal abnormalities. Patient had NIPT drawn on Jun 02, 2016, results pending. DOPPLER STUDIES: ?? The umbilical artery Doppler S/D ratio is 3.97, which is within normal limits for gestational age. ?? The umbilical artery PI is 1.37, which is within normal limits for gestational age. TRANSVAGINAL ULTRASOUND: ?? The transvaginal cervical length measures 3.9 cm with no funneling identified. ??No change is seen with fundal pressure. IMPRESSION: 1. Single, live, IUP at 20w3d 2. AGA size 3. Normal amniotic fluid volume 4. Posterior placenta 5. Anatomy survey is incomplete 6. Echogenic intracardiac focus and prominent nuchal fold (to approximately 6.39 mm) noted. ??No major malformations seen. RECOMMEND: ?? Follow up ultrasound in 4 weeks to complete anatomic survey and assess growth ( not scheduled) unless the NIPT results are high risk. ??Discussed consideration for genetic amniocentesis including if the NIPT is screen positive. ??Patient considering options and may consider genetic amniocentesis if NIPT is screen positive. ??Discussed that NIPT is a screening and not a diagnostic test. ??Further management as per clinical indications. Please note, using prior ultrasound to establish EDC and the ultrasound has approximately 7 day discrepancy when compared to LMP. If LMP is used for dating then this fetus measures small for gestational age. ??With the potential for SGA fetus, an EIF noted in the heart, and increased nuchal fold thickness, these could be markers for aneuploidy. ??This was discussed at length with patient and her questions were answered. ??Plan as stated above. Thank you for allowing us the opportunity to care for your patient. Roland Moreno MD <Electronic Signature> ??06/07/2016 12:27pm Dilia Herrera MD [facility] ORDERABLES
--- OUTSIDE RECORDS SUMMARY | 2024-05-26 07:19 | XMS_ITS | Referral Summary ---
Author Organization [facility] Address [address] [place] [address] Care Team Providers Care Laceworker Name Role Phone Gomez Aceves MD Primary Care Provider [phone] Mdaeline Kim NP Unavailable [phone] Allergies Active Allergy Reactions Criticality Noted Date [...] referral. Assessment & Plan (06/07/2023 11:46 AM RESIDENTIAL TEAM LEADER): Discontinue Wellbutrin. May be allergic. No signs [...] medications. Assessment & Plan (06/06/2023 7:46 AM RESIDENTIAL TEAM LEADER): Improved on higher dosage of Ativan b.i.d.. Assessment & Plan (05/24/2023 11:14 AM RESIDENTIAL TEAM LEADER): We will give her 0.5 mg b.i.d. because of affect is not lasting long enough. Panic attack 04/26/2023 Assessment & Plan (06/06/2023 7:46 AM RESIDENTIAL TEAM LEADER): Continue Paxil at same dosage. Well controlled. Assessment & Plan (05/24/2023 11:19 AM RESIDENTIAL TEAM LEADER): Continue Paxil at same dosage. Well controlled.. Assessment & Plan (04/26/2023 10:38 AM RESIDENTIAL TEAM LEADER): It sounds like she is getting discrete panic attacks no more than once a day. We will try switching to Paxil. Discontinue Prozac Agitation 04/25/2023 Assessment & Plan (05/24/2023 11:13 AM RESIDENTIAL TEAM LEADER): We will give her Ativan 0.5 mg [...] medications. Assessment & Plan (04/26/2023 10:37 AM RESIDENTIAL TEAM LEADER): More of a problem in the morning. [...] medications. Severe bipolar I disorder with depression ([facility]/ CC) 04/02/2023 Assessment & Plan (04/02/2023 10:37 AM RESIDENTIAL TEAM LEADER): Worsening of severe bipolar depression. Not suicidal/homicidal. No substance use. Problems with agitation. Anger issues. Recommend Psychiatry. Start on Prozac 10 mg daily along with Seroquel 50 mg HS. Mixed headache 04/02/2023 Assessment & Plan (04/02/2023 10:37 AM RESIDENTIAL TEAM LEADER): Worsening of chronic mixed headache. Offered Inderal but declined. She is currently following with Neurology. History of substance use 03/06/2023 Bipolar depression ([facility]) 02/21/2023 Assessment & Plan (10/16/2023 9:03 AM [...] mg Assessment & Plan (06/07/2023 11:48 AM RESIDENTIAL TEAM LEADER): We will increase Paxil to 40 mg. Discontinue Wellbutrin as it seems to be lowering her seizure threshold Assessment & Plan (05/24/2023 11:16 AM RESIDENTIAL TEAM LEADER): Improved but needs further improvement. No history of seizures. Has been on Wellbutrin previously. We will add Wellbutrin to the Paxil. Assessment & Plan (04/26/2023 10:37 AM RESIDENTIAL TEAM LEADER): But needs further improvement. As also panic attacks we will try switching from Prozac to Paxil 20 mg HS. Previous side effects on Lexapro. Elevated serum glucose 02/21/2023 Assessment & Plan (04/02/2023 10:39 AM RESIDENTIAL TEAM LEADER): Only 1 reading elevated. Patient was encouraged [...] complication Assessment & Plan (03/29/2023 4:07 PM RESIDENTIAL TEAM LEADER): Infrequent need for rescue inhaler no nocturnal symptoms Nonintractable generalized i diopathic epilepsy without status epilepticus 02/20/2020 Assessment & Plan (04/18/2021 11:34 AM RESIDENTIAL TEAM LEADER): Patient continues on levetiracetam 1500 mg b.i.d.. As she may have had an unwitnessed seizure I have suggested that she remain without driving until filling a 6 month asymptomatic seizure interval. She will follow-up in neurology clinic in 6 months for reassessment. Assessment & Plan (06/02/2020 10:03 AM RESIDENTIAL TEAM LEADER): Patient continues on levetiracetam 1500 mg b.i.d. at this time. She has had no interval documented seizures. She has good tolerability with medication. It will be continued as currently prescribed. Assessment & Plan (02/20/2020 10:01 AM CDT): Patient's former patient of [facility]. Prior medical records from [facility] have been obtained and reviewed with [...] 02/20/2020 Assessment & Plan (06/06/2023 7:47 AM RESIDENTIAL TEAM LEADER): Continue Trileptal at same dosage. Well controlled. Assessment & Plan (05/22/2023 1:32 PM RESIDENTIAL TEAM LEADER): Continue Oxcarbazepine at same dosage. Well controlled. Assessment & Plan (04/25/2023 8:22 AM RESIDENTIAL TEAM LEADER): Continue medication at same dosage. Well controlled. Oxcarbazepine. Assessment & Plan (03/29/2023 4:10 PM RESIDENTIAL TEAM LEADER): Continue Trileptal at same dosage. Well controlled. Assessment & Plan (04/18/2021 11:35 AM RESIDENTIAL TEAM LEADER): Patient developed untoward sedation with amitriptyline. In substitution I will place her on a trial of nortriptyline 25 mg HS and obtain an MRI brain to exclude any structural abnormalities to account for her worsening headaches. She will follow-up in neurology clinic in 6 months for reassessment. Assessment & Plan (06/02/2020 10:04 AM RESIDENTIAL TEAM LEADER): Patient has not increased her amitriptyline to [...] I have suggested that she present to [facility] Emergency Room for consideration of further evaluation [...] 07/03/2017 Assessment & Plan (03/29/2023 4:08 PM RESIDENTIAL TEAM LEADER): Discussed that elevated triglycerides at best treated [...] seizure Assessment & Plan (06/07/2023 11:49 AM RESIDENTIAL TEAM LEADER): Continue Keppra at same dosage. This is being aggravated by the Wellbutrin and we will discontinue the Wellbutrin. Assessment & Plan (05/22/2023 1:32 PM RESIDENTIAL TEAM LEADER): Continue Keppra at same dosage. Well controlled. Also followed by Neurology. Assessment & Plan (04/25/2023 8:23 AM RESIDENTIAL TEAM LEADER): Continue Keppra. Management by Neurology Assessment & Plan (03/29/2023 4:10 PM RESIDENTIAL TEAM LEADER): Continu Keppra at same dosage. Well controlled. Vitamin D deficiency 07/03/2017 Assessment & Plan (03/29/2023 4:08 PM RESIDENTIAL TEAM LEADER): Not on Vitamin-D and needs repeat labs [...] or IM 2016,05/22/2016,11/10/2014,08/14,07/01/2014 Tdap 12/15/2008 Varicella 03/27/2007,02/20/1997 Social History Tobacco Use Types Packs/Day Years [...] on file Legal Sex Female 5:40 AM RESIDENTIAL TEAM LEADER Gender Identity Female 11/19/2022 3:56 PM CDT Sexual Orientation Straight 11/19/2022 3: 56 PM CDT Last Filed Vital Signs Vital Sign Reading [...] 10/16/2023 8:27 AM CDT Plan of Treatment Not on file Insurance [facility] Care Teams Laceworker Relationship Specialty Start Date End Date Gomez Aceves MD [address] [place] [address] PCP - General Family Medicine 04/02/23 Madeline Kim NP [address] [place] [address] Nurse Practitioner Neurology 04/02/23
--- NOTE | 2024-05-26 07:47 | PC.NURSE ---
Dr. Delgado notified of temp 103.3. Pt ambulated to BR without difficulty. C/O generalize body aches.
[2024-05-26 07:53] LABS: Basophils Percent Auto 0.2 % (0.2-1.2); Eosinophils Percent Auto 0.1 % (0-4.4); Hematocrit 31.8 % (37.0-47.0); Hemoglobin 10.5 g/dL (12.0-15.0); Immature Granulocyte Absolute 0.15 K/mm3 (0.00-0.031); Immature Granulocyte Percent A 0.9 % (0-0.5); Lymphocytes Absolute Auto 1.42 K/mm3 (0.9-3.2); Lymphocytes Percent Auto 8.7 % (18.3-44.2); Mean Corpuscular Hemoglobin 27.1 pg (26-34); Mean Platelet Volume 9.3 fl (7.4-10.4); Monocytes Absolute Auto 0.9 K/mm3 (0.1-0.6); Monocytes Percent Auto 5.7 % (2.6-8.5); Neutrophils Absolute Auto 13.8 K/mm3 (1.3-6.7); Neutrophils Percent Auto 84.4 % (45.5-73.1); Platelet Count Result 413 k/mm3 (150-375); Red Blood Count 3.88 M/mm3 (4.2-5.4); White Blood Count 16.4 K/mm3 (4.5-10.0)
[2024-05-26] MEDS: ACETAMINOPHEN 500 MG TABLET 1000 MG PO (07:57)
--- NOTE | 2024-05-26 08:03 | PC.NURSE ---
Pt anxious, crying rocking back & forth. Calming measures attempted without success. Dr. Delgado notified
[2024-05-26 08:05] LABS: Alanine Aminotransferase 20 U/L (6-35); Albumin Level 3.2 g/dL (3.5-5.1); Alkaline Phosphatase 126 U/L (38-126); Anion Gap 8 mmol/L (4-12); Aspartate Amino Transferase 26 U/L (14-36); Bilirubin,Total 1.2 mg/dL (0.2-1.3); Blood Urea Nitrogen 9 mg/dL (7-17); Calcium 8.2 mg/dL (8.4-10.2); Carbon Dioxide 27 mmol/L (22-30); Chloride 94 mmol/L (98-107); Estimated CRCL calculation 165 ml/min; Estimated Glomerular Filt Rate > 60; Glucose 102 mg/dL (65-110); Lactic Acid Reflex 1.1 mmol/L (0.7-2.0); Potassium 2.9 mmol/L (3.4-5.0); Sodium 129 mmol/L (137-145)
[2024-05-26 08:08] LABS: Add Urine Microscopic? YES; Appearance Urine Clear (Clear); Bacteria Urine Rare /hpf; Bilirubin Urine Negative (Negative); Blood Urine 3+ (Negative); Color Urine Yellow (Yellow); Glucose Urine UA Negative (Negative); Ketones Urine Negative (Negative); Leukocyte Esterase Ur Negative LEU/UL (Negative); Nitrate Urine Negative (Negative); Non Pathogenic Casts 0-2; Protein Urine Trace mg/dL (Negative); RBC Urine 0-2 /hpf (0-2); Specific Grav Ur 1.012 (1.001-1.035); Squamous Epithelial Cell Urine Moderate /hpf (Few); WBC Urine 0-5 /hpf (0-3)
[2024-05-26] MEDS: levoFLOXacin 750 MG/D5W 150 ML 750 MG/150 ML BAG 100 MG IVPB (08:10)
[2024-05-26] MEDS: SODIUM CHLORIDE 0.9% IV 1,000 ML 150 ML IV CONT (08:27)
[2024-05-26] MEDS: LORazepam INJ (*CRX) 2 MG/ML VIAL 0.5 MG IV PUSH (08:27)
--- NOTE | 2024-05-26 08:52 | ED_ITS ---
HPI - URI/Sore Throat General Chief Complaint: Upper Respiratory Infection Stated Complaint: cough Time Seen by Provider: 05/26/24 07:10 Source: patient Mode of arrival: ambulatory Limitations: no limitations History of Present Illness HPI Narrative: 28-year-old with a history of asthma here with the complaints of cough, congestion, fever, not feeling well for past 2 days. She denies any shortness of breath. No history of nausea or vomiting. She states that she feels terrible MD elicited complaint: fever and cough Pertinent past history: pneumonia Onset (ago): day(s) (2) Consistency: constant Severity: moderate Exacerbating factors: nothing Relieving factors: nothing Associated symptoms: denies other symptoms Related Data Home Medications ?Medication ?Instructions ?Recorded ?Confirmed ?Last Taken ?Type aripiprazole 10 mg disintegrating mg 05/15/24 Unknown History tablet levetiracetam 1,000 mg tablet mg PO 05/15/24 Unknown History lorazepam 0.5 mg tablet mg 05/15/24 Unknown History oxcarbazepine 300 mg tablet mg 05/15/24 Unknown History paroxetine HCl 40 mg tablet mg PO 05/15/24 Unknown History quetiapine 50 mg tablet mg 05/15/24 Unknown History Allergies Allergy/AdvReac Type Severity Reaction Status Date / Time codeine Allergy Severe Anaphylaxis Verified 05/26/24 07:58 Penicillins Allergy Severe Anaphylaxis Verified 05/26/24 07:58 shellfish derived Allergy Severe Anaphylaxis Verified 05/26/24 07:58 ibuprofen (From Advil) Allergy Intermediate Hives Verified 05/26/24 07:58 iodine Allergy Intermediate Hives Verified 05/26/24 07:58 Review of Systems 2 Review of Systems: All systems reviewed & are unremarkable except as noted in HPI and below Constitutional: Constitutional: Reports no additional constitutional complaints Eyes: Eyes: Reports no additional eye complaints ENT: Reports system reviewed and no additional complaints, except as documented Cardiovascular: Cardiovascular: Reports no additional cardiovascular complaints Respiratory: Respiratory: Reports as per HPI Gastrointestinal: Gastrointestinal: Reports no additional gastrointestinal complaints Musculoskeletal: Musculoskeletal: Reports no additional musculoskeletal complaints PMFSH Family History Family History Other Hypertension Social History Social History Smoking status: Current every day smoker Alcohol intake: current Gender identity (if verbalized by the patient): Female Exam 2 Narrative: GENERAL: Well-appearing, well-nourished, and in no acute distress. HEAD: Normocephalic, atraumatic. EYES: PERRLA and EOMI. NECK: Supple. CHEST: Clear to auscultation. No respiratory distress. HEART: Regular rate and rhythm. No murmur heard. Normal peripheral pulses. ABDOMEN: Soft, nontender, nondistended, normal active bowel sounds. EXTREMITIES: Normal range of motion. No edema. SKIN: Warm, dry, no rash. NEURO: No focal deficits. Alert and oriented x3. PSYCH: Normal mood and affect. Course Course Emergency Course: Patient is found to be hyperventilating and super anxious I did give her 0.5 of Ativan to, down. I did inform her about her lab work and x-ray findings she is agreeable with admission. Vital Signs Vital signs: Vital Signs Temperature 38.9 C H 05/26/24 06:10 Pulse Rate 113 H 05/26/24 06:10 Respiratory Rate 19 05/26/24 06:10 Blood Pressure 133/79 05/26/24 06:10 Pulse Oximetry 98 05/26/24 06:10 Oxygen Delivery Room Air 05/26/24 06:10 Temperature 39.6 C H 05/26/24 07:48 Pulse Rate 108 H 05/26/24 07:48 Respiratory Rate 20 05/26/24 07:48 Blood Pressure 123/87 05/26/24 07:48 Pulse Oximetry 100 05/26/24 07:48 Oxygen Delivery Room Air 05/26/24 06:10 MDM - URI/Sore Throat Differential Diagnosis Differential diagnosis: Likely upper respiratory infection and viral infection Medical Records Attestation: I reviewed the patient's medical records. Lab Data Attestation: I reviewed the patient's lab results. 05/26/24 07:42 05/26/24 07:42 Labs: Lab Results 05/26/24 05/26/24 05/26/24 Range/Units 06:16 07:42 07:56 WBC 16.4 H (4.5-10.0) K/mm3 RBC 3.88 L (4.2-5.4) M/mm3 Hgb 10.5 L D (12.0-15.0) g/dL Hct 31.8 L (37.0-47.0) % MCV 82.0 (80-100) fl MCH 27.1 (26-34) pg MCHC 33.0 (32-36) g/dl RDW 13.0 (11.5-14.5) % Plt Count 413 H D (150-375) k/mm3 MPV 9.3 (7.4-10.4) fl Immature Gran % (Auto) 0.9 H (0-0.5) % Neut % (Auto) 84.4 H (45.5-73.1) % Lymph % (Auto) 8.7 L (18.3-44.2) % [place] % (Auto) 5.7 (2.6-8.5) % Eos % (Auto) 0.1 (0-4.4) % Baso % (Auto) 0.2 (0.2-1.2) % Lymph # (Auto) 1.42 (0.9-3.2) K/mm3 [place] # (Auto) 0.9 H (0.1-0.6) K/mm3 Eos # (Auto) 0.0 (0-0.3) K/mm3 Baso # (Auto) 0.0 (0.0-0.1) K/mm3 Abs Immat Gran (auto) 0.15 H (0.00-0.031) K/mm3 Absolute Neuts (auto) 13.8 H (1.3-6.7) K/mm3 Absolute Nucleated RBC 0.000 (0.0-0.012) K/mm3 Nucleated RBC % 0.0 (0.0-0.2) % Sodium 129 L (137-145) mmol/L Potassium 2.9 L (3.4-5.0) mmol/L Chloride 94 L (98-107) mmol/L Carbon Dioxide 27 (22-30) mmol/L Anion Gap 8 (4-12) mmol/L BUN 9 (7-17) mg/dL Creatinine 0.48 L (0.7-1.0) mg/dL Estim Creat Clear Calc 165 ml/min Estimated GFR > 60 (59 - ) Glucose 102 (65-110) mg/dL Lactic Acid 1.1 (0.7-2.0) mmol/L Calcium 8.2 L (8.4-10.2) mg/dL Total Bilirubin 1.2 (0.2-1.3) mg/dL AST 26 (14-36) U/L ALT 20 (6-35) U/L Alkaline Phosphatase 126 (38-126) U/L Total Protein 7.0 (6.3-8.2) g/dL Albumin 3.2 L (3.5-5.1) g/dL Urine Color Yellow (Yellow) Urine Appearance Clear (Clear) Urine pH 8.0 (5.0-9.0) Ur Specific [place] 1.012 (1.001-1.035) Urine Protein Trace (Negative) mg/dL Urine Glucose (UA) Negative (Negative) mg/dL Urine Ketones Negative (Negative) mg/dL Ur Blood (Man) 3+ H (Negative) Urine Nitrate Negative (Negative) Urine Bilirubin Negative (Negative) Urine Urobilinogen 1.0 (<2.0) mg/dL Leukocyte Esterase Rfl Negative (Negative) KILEY/UL Urine RBC 0-2 (0-2) /hpf Urine WBC 0-5 (0-3) /hpf Ur Squamous Epith Cells Moderate (Few) /hpf Urine Bacteria Rare /hpf Urine Casts 0-2 Influenza A (RT-PCR) Positive A (Negative) Influenza B (RT-PCR) Negative (Negative) RSV (RT-PCR) Negative (Negative) SARS-CoV-2 RNA (RT-PCR) Negative (Negative) Imaging Data Radiologist's impression: ITS Impressions Chest X-Ray 05/26/24 07:05 Impression: Multilobar pneumonia, worst in the right middle and lower lobes. Probable minimal involvement of the right upper and left lower lobes. Discharge Plan Discharge Clinical Impression: Influenza A, Acute hyponatremia Pneumonia Qualifiers: Pneumonia type: due to unspecified organism Laterality: right Lung location: l ower lobe of lung Qualified Code(s): J18.9 - Pneumonia, unspecified organism Patient Disposition: Still a Patient Condition: Stable Instructions: Antibiotic Form Patient Language: Azeri Prescriptions: No Action oxcarbazepine 300 mg tablet lorazepam 0.5 mg tablet paroxetine HCl 40 mg tablet PO quetiapine 50 mg tablet levetiracetam 1,000 mg tablet PO aripiprazole 10 mg tablet,disintegrating albuterol sulfate [Ventolin HFA] 90 mcg/actuation HFA aerosol inhaler 2 puff inhalation QID PRN (Reason: shortness of breath or wheezing) Qty: 8.5 0RF prednisone 50 mg tablet 50 mg PO DAILY Qty: 5 0RF Follow-up/Referrals: UNKNOWN,DOCTOR [Primary Care Provider] - Time of Disposition: 08:58
--- NOTE | 2024-05-26 09:52 | PC.NURSE ---
Anxiety reduced with Ativan. at bedside. Pt ambulatory without difficulty to bathroom. Awaiting IP bed assignment
--- OUTSIDE RECORDS SUMMARY | 2024-05-26 11:02 | XMS_ITS | Clinical Summary ---
Author Organization [facility] Address [address] [place] [address] Care Team Providers Care Planogrammer Name Role Phone Gomez Aceves MD Primary Care Provider [phone] Madeline Kim NP Unavailable [phone] Allergies Active Allergy Reactions Criticality Noted Date [...] referral. Assessment & Plan (06/07/2023 11:46 AM STATISTICIAN THEORETICAL): Discontinue Wellbutrin. May be allergic. No signs [...] medications. Assessment & Plan (06/06/2023 7:46 AM STATISTICIAN THEORETICAL): Improved on higher dosage of Ativan b.i.d.. Assessment & Plan (05/24/2023 11:14 AM STATISTICIAN THEORETICAL): We will give her 0.5 mg b.i.d. because of affect is not lasting long enough. Panic attack 04/26/2023 Assessment & Plan (06/06/2023 7:46 AM STATISTICIAN THEORETICAL): Continue Paxil at same dosage. Well controlled. Assessment & Plan (05/24/2023 11:19 AM STATISTICIAN THEORETICAL): Continue Paxil at same dosage. Well controlled.. Assessment & Plan (04/26/2023 10:38 AM STATISTICIAN THEORETICAL): It sounds like she is getting discrete panic attacks no more than once a day. We will try switching to Paxil. Discontinue Prozac Agitation 04/25/2023 Assessment & Plan (05/24/2023 11:13 AM STATISTICIAN THEORETICAL): We will give her Ativan 0.5 mg [...] medications. Assessment & Plan (04/26/2023 10:37 AM STATISTICIAN THEORETICAL): More of a problem in the morning. [...] medications. Severe bipolar I disorder with depression ([facility]/ [facility]) 04/02/2023 Assessment & Plan (04/02/2023 10:37 AM STATISTICIAN THEORETICAL): Worsening of severe bipolar depression. Not suicidal/homicidal. No substance use. Problems with agitation. Anger issues. Recommend Psychiatry. Start on Prozac 10 mg daily along with Seroquel 50 mg HS. Mixed headache 04/02/2023 Assessment & Plan (04/02/2023 10:37 AM STATISTICIAN THEORETICAL): Worsening of chronic mixed headache. Offered Inderal but declined. She is currently following with Neurology. History of substance use 03/06/2023 Bipolar depression ([facility]) 02/21/2023 Assessment & Plan (10/16/2023 9:03 AM [...] mg Assessment & Plan (06/07/2023 11:48 AM STATISTICIAN THEORETICAL): We will increase Paxil to 40 mg. Discontinue Wellbutrin as it seems to be lowering her seizure threshold Assessment & Plan (05/24/2023 11:16 AM STATISTICIAN THEORETICAL): Improved but needs further improvement. No history of seizures. Has been on Wellbutrin previously. We will add Wellbutrin to the Paxil. Assessment & Plan (04/26/2023 10:37 AM STATISTICIAN THEORETICAL): But needs further improvement. As also panic attacks we will try switching from Prozac to Paxil 20 mg HS. Previous side effects on Lexapro. Elevated serum glucose 02/21/2023 Assessment & Plan (04/02/2023 10:39 AM STATISTICIAN THEORETICAL): Only 1 reading elevated. Patient was encouraged [...] complication Assessment & Plan (03/29/2023 4:07 PM STATISTICIAN THEORETICAL): Infrequent need for rescue inhaler no nocturnal symptoms Nonintractable generalized i diopathic epilepsy without status epilepticus 02/20/2020 Assessment & Plan (04/18/2021 11:34 AM STATISTICIAN THEORETICAL): Patient continues on levetiracetam 1500 mg b.i.d.. As she may have had an unwitnessed seizure I have suggested that she remain without driving until filling a 6 month asymptomatic seizure interval. She will follow-up in neurology clinic in 6 months for reassessment. Assessment & Plan (06/02/2020 10:03 AM STATISTICIAN THEORETICAL): Patient continues on levetiracetam 1500 mg b.i.d. at this time. She has had no interval documented seizures. She has good tolerability with medication. It will be continued as currently prescribed. Assessment & Plan (02/20/2020 10:01 AM CDT): Patient's former patient of [facility]. Prior medical records from [facility] have been obtained and reviewed with [...] 02/20/2020 Assessment & Plan (06/06/2023 7:47 AM STATISTICIAN THEORETICAL): Continue Trileptal at same dosage. Well controlled. Assessment & Plan (05/22/2023 1:32 PM STATISTICIAN THEORETICAL): Continue Oxcarbazepine at same dosage. Well controlled. Assessment & Plan (04/25/2023 8:22 AM STATISTICIAN THEORETICAL): Continue medication at same dosage. Well controlled. Oxcarbazepine. Assessment & Plan (03/29/2023 4:10 PM STATISTICIAN THEORETICAL): Continue Trileptal at same dosage. Well controlled. Assessment & Plan (04/18/2021 11:35 AM STATISTICIAN THEORETICAL): Patient developed untoward sedation with amitriptyline. In substitution I will place her on a trial of nortriptyline 25 mg HS and obtain an MRI brain to exclude any structural abnormalities to account for her worsening headaches. She will follow-up in neurology clinic in 6 months for reassessment. Assessment & Plan (06/02/2020 10:04 AM STATISTICIAN THEORETICAL): Patient has not increased her amitriptyline to [...] I have suggested that she present to [facility] Emergency Room for consideration of further evaluation [...] 07/03/2017 Assessment & Plan (03/29/2023 4:08 PM STATISTICIAN THEORETICAL): Discussed that elevated triglycerides at best treated [...] seizure Assessment & Plan (06/07/2023 11:49 AM STATISTICIAN THEORETICAL): Continue Keppra at same dosage. This is being aggravated by the Wellbutrin and we will discontinue the Wellbutrin. Assessment & Plan (05/22/2023 1:32 PM STATISTICIAN THEORETICAL): Continue Keppra at same dosage. Well controlled. Also followed by Neurology. Assessment & Plan (04/25/2023 8:23 AM STATISTICIAN THEORETICAL): Continue Keppra. Management by Neurology Assessment & Plan (03/29/2023 4:10 PM STATISTICIAN THEORETICAL): Continu Keppra at same dosage. Well controlled. Vitamin D deficiency 07/03/2017 Assessment & Plan (03/29/2023 4:08 PM STATISTICIAN THEORETICAL): Not on Vitamin-D and needs repeat labs [...] on file Legal Sex Female 5:40 AM STATISTICIAN THEORETICAL Gender Identity Female 11/19/2022 3:56 PM CDT [...] Vaccines Completed 03/27/2007, 02/20/1997 Insurance Care Teams Planogrammer Relationship Specialty Start Date End Date Gomez Aceves MD [address] [place] [address] PCP - General Family Medicine 04/02/23 Madeline Kim NP [address] [place] [address] Nurse Practitioner Neurology 04/02/23
--- OUTSIDE RECORDS SUMMARY | 2024-05-26 11:02 | XMS_ITS | Clinical Summary ---
Author Organization [facility] Address [address] [place] [address] Care Team Providers Care [place] Staff Name Role Phone Unavailable Primary Care Provider Unavailabl e Source Comments [facility],non-owned Affiliates and Associated Physician Practices is amultiple site organization consisting of ambulatory clinics and hospital sitesin [place], [place], [place] and [place]. This disclosure is being madepursuant to the Care Everywhere program and may not contain all information available regarding this patient. Last updated 18.[facility] Active Problems Patient Care Coordination No te [...] Sex Assigned at Female 06/03/2023 1:35 PM OYSTER TONGER Gender Identity Female 06/03/2023 1:35 PM OYSTER TONGER Sexual Orientation Straight 06/03/2023 1: 35 PM OYSTER TONGER Plan of Treatment Health Maintenance Due Date [...]
--- OUTSIDE RECORDS SUMMARY | 2024-05-26 11:02 | XMS_ITS | Patient Health Summary ---
Author Organization [facility] Address [address] [place] [address] Care Team Providers Care Paper Novelty Maker Name Role Phone Unavailable Primary Care Provider Unavailabl e Note from [facility],non-owned Affiliates and Associated Physician Practices is amultiple site organization consisting of ambulatory clinics and hospital sitesin [place], [place], [place] and [place]. This disclosure is being madepursuant to the Care Everywhere program and may not contain all information available regarding this patient. Last updated 18.[facility] Active Problems Problem Noted Date Diagnosed Date cardiac echogenic focus 06/02/2016 Encounter for supervision of normal first in second trimester 06/02/2016 Social History Tobacco Use Types Packs/Day Years Used Date Smoking Tobacco: Never Assessed Sex and Gender Information Value Date Recorded Sex Assigned at Female 06/03/2023 1:35 PM AUTOMATIC BOW MAKER MACHINE TENDER Gender Identity Female 06/03/2023 1:35 PM AUTOMATIC BOW MAKER MACHINE TENDER Sexual Orientation Straight 06/03/2023 1: 35 PM AUTOMATIC BOW MAKER MACHINE TENDER Procedures * SONOGRAM - COMPLETE(Performed 06/07/2016) Performed for Echogenic intracardiac focus of fetus on ultrasound Results * SONOGRAM - COMPLETE (06/07/2016 8:25 AM AUTOMATIC BOW MAKER MACHINE TENDER) Anatomical Region Laterality Modality Other 06/07/2016 8:25 AM AUTOMATIC BOW MAKER MACHINE TENDER Narrative 06/07/2016 12:26 PM AUTOMATIC BOW MAKER MACHINE TENDER ? [facility] ? [facility] ?PHONE: ??FAX: ? Pat. Name: ?KORY BARCLAY Pat. No: ?[id number] Study Date: ?? 06/07/2016 ??8:25am , Age: ? 1995, 21 Pregnancies: ?? 3, Para 1, Ab 1 Height: ? 69 in Weight: ? 250 lb LMP: ?01/09/2016 GA by LMP: ?21w3d GA by US: ? 20w2d GA Selected: ??20w3d (Outside Scan) HEYDI: ?10/22/2016 Referring MD: Dilia Herrera MD Lumber Trimmer: ??Elzbieta Baxter RDMS BMI: ?36.91 Hist/Ind: ? EIF on outside scan ? Anatomy Screen ?NIPT pending MEASUREMENTS & AGE ? GROWTH EVALUATION Measurement ??GA ? Range ? Srce %for GA Ratios ----- ---- ------- BPD ??4.7 cm 20w2d ([id number]) Hadl BPD 45% FL/BPD 0.68 HC ??17.2 cm 19w5d (22f2k-13h8o) Hadl HC ??30% FL/AC ??0.20 AC ??15.8 cm 21w0d (99a5w-29q7h) Hadl AC ??61% HC/AC ??1.09 (1.06 - 1.24) FL ?? 3.2 cm 20w0d (29u1c-79b1y) Hadl FL ??38% CI ? 0.79 (0.70 - 0.86) HL ?? 3.1 cm 20w2d (40i2v-10m9l) Be HL ??47% GA for sonogram 20w2d (87f1s-04z6x) ?? Weight Estimate: based on (BPD,HC,AC,FL) Avg [...] <Electronic Signature> ??06/07/2016 12:27pm Dilia Herrera MD [facility] ORDERABLES
--- OUTSIDE RECORDS SUMMARY | 2024-05-26 11:02 | XMS_ITS | Referral Summary ---
Author Organization [facility] Address [address] [place] [address] Care Team Providers Care Director Online Marketing Name Role Phone Gomez Aceves MD Primary Care Provider [phone] Madeline Kim NP Unavailable [phone] Allergies Active Allergy Reactions Criticality Noted Date [...] referral. Assessment & Plan (06/07/2023 11:46 AM DEMAND PLANNER): Discontinue Wellbutrin. May be allergic. No signs [...] medications. Assessment & Plan (06/06/2023 7:46 AM DEMAND PLANNER): Improved on higher dosage of Ativan b.i.d.. Assessment & Plan (05/24/2023 11:14 AM DEMAND PLANNER): We will give her 0.5 mg b.i.d. because of affect is not lasting long enough. Panic attack 04/26/2023 Assessment & Plan (06/06/2023 7:46 AM DEMAND PLANNER): Continue Paxil at same dosage. Well controlled. Assessment & Plan (05/24/2023 11:19 AM DEMAND PLANNER): Continue Paxil at same dosage. Well controlled.. Assessment & Plan (04/26/2023 10:38 AM DEMAND PLANNER): It sounds like she is getting discrete panic attacks no more than once a day. We will try switching to Paxil. Discontinue Prozac Agitation 04/25/2023 Assessment & Plan (05/24/2023 11:13 AM DEMAND PLANNER): We will give her Ativan 0.5 mg [...] medications. Assessment & Plan (04/26/2023 10:37 AM DEMAND PLANNER): More of a problem in the morning. [...] medications. Severe bipolar I disorder with depression ([facility]) 04/02/2023 Assessment & Plan (04/02/2023 10:37 AM DEMAND PLANNER): Worsening of severe bipolar depression. Not suicidal/homicidal. No substance use. Problems with agitation. Anger issues. Recommend Psychiatry. Start on Prozac 10 mg daily along with Seroquel 50 mg HS. Mixed headache 04/02/2023 Assessment & Plan (04/02/2023 10:37 AM DEMAND PLANNER): Worsening of chronic mixed headache. Offered Inderal but declined. She is currently following with Neurology. History of substance use 03/06/2023 Bipolar depression ([facility]) 02/21/2023 Assessment & Plan (10/16/2023 9:03 AM [...] mg Assessment & Plan (06/07/2023 11:48 AM DEMAND PLANNER): We will increase Paxil to 40 mg. Discontinue Wellbutrin as it seems to be lowering her seizure threshold Assessment & Plan (05/24/2023 11:16 AM DEMAND PLANNER): Improved but needs further improvement. No history of seizures. Has been on Wellbutrin previously. We will add Wellbutrin to the Paxil. Assessment & Plan (04/26/2023 10:37 AM DEMAND PLANNER): But needs further improvement. As also panic attacks we will try switching from Prozac to Paxil 20 mg HS. Previous side effects on Lexapro. Elevated serum glucose 02/21/2023 Assessment & Plan (04/02/2023 10:39 AM DEMAND PLANNER): Only 1 reading elevated. Patient was encouraged [...] complication Assessment & Plan (03/29/2023 4:07 PM DEMAND PLANNER): Infrequent need for rescue inhaler no nocturnal symptoms Nonintractable generalized i diopathic epilepsy without status epilepticus 02/20/2020 Assessment & Plan (04/18/2021 11:34 AM DEMAND PLANNER): Patient continues on levetiracetam 1500 mg b.i.d.. As she may have had an unwitnessed seizure I have suggested that she remain without driving until filling a 6 month asymptomatic seizure interval. She will follow-up in neurology clinic in 6 months for reassessment. Assessment & Plan (06/02/2020 10:03 AM DEMAND PLANNER): Patient continues on levetiracetam 1500 mg b.i.d. at this time. She has had no interval documented seizures. She has good tolerability with medication. It will be continued as currently prescribed. Assessment & Plan (02/20/2020 10:01 AM CDT): Patient's former patient of [facility]. Prior medical records from [facility] have been obtained and reviewed with [...] 02/20/2020 Assessment & Plan (06/06/2023 7:47 AM DEMAND PLANNER): Continue Trileptal at same dosage. Well controlled. Assessment & Plan (05/22/2023 1:32 PM DEMAND PLANNER): Continue Oxcarbazepine at same dosage. Well controlled. Assessment & Plan (04/25/2023 8:22 AM DEMAND PLANNER): Continue medication at same dosage. Well controlled. Oxcarbazepine. Assessment & Plan (03/29/2023 4:10 PM DEMAND PLANNER): Continue Trileptal at same dosage. Well controlled. Assessment & Plan (04/18/2021 11:35 AM DEMAND PLANNER): Patient developed untoward sedation with amitriptyline. In substitution I will place her on a trial of nortriptyline 25 mg HS and obtain an MRI brain to exclude any structural abnormalities to account for her worsening headaches. She will follow-up in neurology clinic in 6 months for reassessment. Assessment & Plan (06/02/2020 10:04 AM DEMAND PLANNER): Patient has not increased her amitriptyline to [...] I have suggested that she present to [facility] Emergency Room for consideration of further evaluation [...] 07/03/2017 Assessment & Plan (03/29/2023 4:08 PM DEMAND PLANNER): Discussed that elevated triglycerides at best treated [...] seizure Assessment & Plan (06/07/2023 11:49 AM DEMAND PLANNER): Continue Keppra at same dosage. This is being aggravated by the Wellbutrin and we will discontinue the Wellbutrin. Assessment & Plan (05/22/2023 1:32 PM DEMAND PLANNER): Continue Keppra at same dosage. Well controlled. Also followed by Neurology. Assessment & Plan (04/25/2023 8:23 AM DEMAND PLANNER): Continue Keppra. Management by Neurology Assessment & Plan (03/29/2023 4:10 PM DEMAND PLANNER): Continu Keppra at same dosage. Well controlled. Vitamin D deficiency 07/03/2017 Assessment & Plan (03/29/2023 4:08 PM DEMAND PLANNER): Not on Vitamin-D and needs repeat labs [...] on file Legal Sex Female 5:40 AM DEMAND PLANNER Gender Identity Female 11/19/2022 3:56 PM CDT [...] Plan of Treatment Not on file Insurance [facility] Care Teams Director Online Marketing Relationship Specialty Start Date End Date Gomez Aceves MD [address] [place] [address] PCP - General Family Medicine 04/02/23 Madeline Kim NP [address] [place] [address] Nurse Practitioner Neurology 04/02/23
--- OUTSIDE RECORDS SUMMARY | 2024-05-26 11:02 | XMS_ITS | Referral Summary ---
Author Organization [facility] [employer] Address [address] [place] [address] Care Team Providers Care Development Consultant Name Role Phone Unavailable Primary Care Provider Unavailabl e Source Comments [facility],non-owned Affiliates and Associated Physician Practices is amultiple site organization consisting of ambulatory clinics and hospital sitesin [place], [place], [place] and [place]. This disclosure is being madepursuant to the Care Everywhere program and may not contain all information available regarding this patient. Last updated 18.[facility] [employer] Active Problems Patient Care Coordination No te [...] Sex Assigned at Female 06/03/2023 1:35 PM TRUCK ENGINE TECHNICIAN Gender Identity Female 06/03/2023 1:35 PM TRUCK ENGINE TECHNICIAN Sexual Orientation Straight 06/03/2023 1: 35 PM TRUCK ENGINE TECHNICIAN Plan of Treatment Not on file
--- NOTE | 2024-05-26 12:15 | ADMGEN ---
This patient, Myrna Barclay, was admitted to Medical Room 258-. Patient/family oriented to hospital policies and general routines including ID bracelet, bed and alarms, visiting hours, pain management, procedures, bathroom and other care routines, personal items, smoking policy, room service/diet, and visiting hours. Information on how to activate the Rapid Response Team has been discussed. Patient/Family are encouraged to report perceived risks to care and to ask questions if they do not understand what they are told or what they should do.
[2024-05-26] MEDS: SODIUM CHLORIDE 0.9% IV 1,000 ML 125 ML IV CONT (12:42)
[2024-05-26] MEDS: OSELTAMIVIR PHOSPHATE 75 MG CAPSULE PO ×2 (12:43→20:00)
--- NOTE | 2024-05-26 13:15 | P.HP_ITS ---
H&P: HPI History of Present Illness Date/Time: 05/26/24 13:15 Chief Complaint: Fever and cough. Narrative: This is a 28-year-old female smoker with history of depression, anxiety, and hyperthyroidism not currently on medication who presented to the emergency department via EMS with complaints of fever and cough. The patient provides following history. She has had a cough for 2 weeks and she apparently has been seen urgent care multiple times and has been diagnosed with influenza A, influenza B, and strep throat. She was prescribed a Z-Irvin which she completed however she still feels poorly and continues to run a fever. She has a cough productive of mostly white colored phlegm. She is having pleuritic chest pain, mostly on the right side. Her appetite has been fair. She denies exertional chest pain, vomiting, diarrhea, lower extremity edema, and calf pain. In the ED: Temperature was as high as 103.3? F. Blood pressures have been running at the lower end of normal. The remainder of her vital signs are stable. Labs are significant for WBC count of 16.4, hemoglobin 10.5, sodium 129, potassium 2.9, chloride 94, BUN 9, creatinine 0.48, calcium 8.2, lactic acid 1.1. She is positive for influenza A. Chest x-ray showed multilobar pneumonia. She was started on levofloxacin and oseltamivir and she is being admitted in this setting for close monitoring and further treatment. Review of Systems Review of Systems: 12 systems were reviewed and are negativ e except for as per HPI. [facility] Past Medical History Medical History (Updated 05/26/24 @ 22:50 by Paige Monroe PA-C) Hyperthyroidism Anxiety Depression Surgical History Surgical History History of tonsillectomy and adenoidectomy History of tubal ligation History of cholecystectomy (11/2016) Family History Family History Father Hypertension Mother Hypertension Grandparent Cancer of lymph and blood cells Brain cancer Lung cancer Social History Social History Social History: Surrogate medical decision maker: Eliezer Call, mother ([phone]). Code status: Full code. Smoking packs per day: 1 Smoking cigarettes per day: 20.0 Years smoked: 15 Smoking pack-years: 15.00 Smoking status: Current every day smoker Tobacco type: cigarettes Smoking end date: 05/18/24 Alcohol intake: never Substance use: current Substance use type: marijuana Last use: 05/18/24 Do You Feel Safe in your Home?: Yes Lack of Transportation: YES Lack of Food: Never True Current Housing: I Have Housing Concerned About Future Housing: No Difficulty Paying Gas/Electric Bills: No Difficulty Paying for Meds: No Currently Unemployed: No Education: Associate Degree Difficulty w/ Childcare or Family Care: No Spiritual care concerns: No Meds Home Medications and Allergies Home Medications ?Medication ?Instructions ?Recorded ?Confirmed ?Type albuterol sulfate 90 mcg/actuation 2 puff inhalation QID PRN 05/15/24 05/26/24 Rx aerosol inhaler (Ventolin HFA) shortness of breath or wheezing #8.5 grams lorazepam 0.5 mg tablet 0.5 mg PO DAILY PRN anxiety 05/15/24 05/26/24 History Allergies Allergy/AdvReac Type Severity Reaction Status Date / Time codeine Allergy Severe Anaphylaxis Verified 05/26/24 19:14 Penicillins Allergy Severe Anaphylaxis Verified 05/26/24 19:14 shellfish derived Allergy Severe Anaphylaxis Verified 05/26/24 19:14 ibuprofen (From Advil) Allergy Intermediate Hives Verified 05/26/24 19:14 iodine Allergy Intermediate Hives Verified 05/26/24 19:14 Vital Signs Vital Signs - 24 hr 05/26/24 06:10 05/26/24 06:10 05/26/24 07:48 Temperature 102.0 F H 103.3 F H Pulse Rate 113 H 108 H Respiratory Rate 19 20 Blood Pressure 133/79 123/87 Pulse Oximetry 98 100 Oxygen Delivery Room Air Room Air 05/26/24 09:49 05/26/24 09:51 05/26/24 12:00 Temperature 98.8 F 98.8 F 98.8 F Pulse Rate 96 93 Respiratory Rate 20 16 Blood Pressure 104/41 L 113/62 Pulse Oximetry 97 96 Oxygen Delivery 05/26/24 12:06 Temperature Pulse Rate 81 Respiratory Rate 16 Blood Pressure 90/45 L Pulse Oximetry 96 Oxygen Delivery Exam Narrative: General: Moderately ill-appearing female sitting up in bed. Weight: 86.2 kg. BMI: 28.9. HEENT: Mild exophthalmos, right greater than left. Slight dysconjugate gaze. Sclera anicteric. Tacky mucous membranes. Neck: Supple. Respiratory: Respirations are nonlabored and she is speaking in full sentences. Lung sounds are coarse. Cardiovascular: Regular rate and rhythm with S1-S2. Gastrointestinal: Abdomen is soft, nontender, and nondistended with positive kurt wel sounds. Skin: Warm and dry. Multiple tattoos. Extremities: No cyanosis, clubbing, or edema. Radial and pedal pulses intact. Neurological: Alert. Cranial nerves 2-12 are grossly intact. No gross focal deficits to casual conversation. Psychiatric: Pleasant and cooperative with normal mood and affect. Judgment and insight intact. H&P: Results Labs Labs: Short CBC 05/26/24 Range/Units 07:42 WBC 16.4 H (4.5-10.0) K/mm3 Hgb 10.5 L D (12.0-15.0) g/dL Hct 31.8 L (37.0-47.0) % Plt Count 413 H D (150-375) k/mm3 BMP 05/26/24 07:42 Sodium 129 L Potassium 2.9 L Chloride 94 L Carbon Dioxide 27 BUN 9 Creatinine 0.48 L Glucose 102 Calcium 8.2 L Liver Function 05/26/24 Range/Units 07:42 Total Bilirubin 1.2 (0.2-1.3) mg/dL AST 26 (14-36) U/L ALT 20 (6-35) U/L Alkaline Phosphatase 126 (38-126) U/L Albumin 3.2 L (3.5-5.1) g/dL Urine 05/26/24 Range/Units 07:56 Urine Color Yellow (Yellow) Urine Appearance Clear (Clear) Urine pH 8.0 (5.0-9.0) Ur Specific [place] 1.012 (1.001-1.035) Urine Protein Trace (Negative) mg/dL Urine Glucose (UA) Negative (Negative) mg/dL Imaging Chest X-Ray 05/26/24 07:05 Impression: Multilobar pneumonia, worst in the right middle and lower lobes. Probable minimal involvement of the right upper and left lower lobes. Assessment and Plan Assessment and plan (1) Influenza A: Code(s): J10.1 - Influenza due to other identified influenza virus with other respiratory manifestations Status: Acute (2) Pneumonia: Qualifiers: Laterality: right Lung location: lower lobe of lung Pneumonia type: due to unspecified organism Qualified Code(s): J18.9 - Pneumonia, unspecified organism Code(s): J18.9 - Pneumonia, unspecified organism Status: Acute (3) Electrolyte abnormality: Code(s): E87.8 - Other disorders of electrolyte and fluid balance, not elsewhere classified Status: Acute (4) MRSA nasal colonization: Code(s): Z22.322 - Carrier or suspected carrier of Methicillin resistant Staphylococcus aureus Status: Acute (5) Hyperthyroidism: Code(s): E05.90 - Thyrotoxicosis, unspecified without thyrotoxic crisis or storm Status: Acute Plan The patient presented to the emergency department for fever and cough after having been diagnosed with influenza A, influenza B, and strep throat over the last couple of weeks as detailed in HPI. Labs, imaging, EKG, and all reports were personally reviewed. She is positive for influenza A and given the need for hospitalization and severity of her illness she has been started on oseltamivir despite. Chest x-ray today shows multilobar pneumonia compared to a normal chest x-ray a little over a week ago. She has also been started on linezolid and levofloxacin for likely concomitant bacterial pneumonia, very possibly MRSA pneumonia as her MRSA nasal screen was positive. Mupirocin ointment ordered twice daily to the nares. Send sputum for culture. Continue scheduled bronchodilators. Sodium is likely low due to pneumonia and maybe even mild dehydration. Check Legionella antigen, urine and serum osmolalities, and urine sodium for further evaluation. Check TSH as she has a history of hyperthyroidism does not currently on medication. Her home medications will be reviewed and resumed as appropriate. Findings and treatment plan were [facility] Questions were solicited and answered to satisfaction. The patient's medical management will be taken over by the hospitalist team in a.m. Quality VTE Prophylaxis VTE prophylaxis: pharmacologic ordered The patient has been admitted under observation status. Hospitalist MIPS Advance Care Plan I have confirmed that the patient's Advanced Care Plan is present, code status is documented, or surrogate decision maker is listed in patient medical record.: Yes Medication Reconciliation I have utilized all available resources to obtain, update and review the patients current medications (includes all prescriptions, OTC, herbals, cannabis, and nutritional supplements).: Yes
[2024-05-26] MEDS: VANCOMYCIN 1,250 MG/NS 250 ML 1,250 MG/250 ML BAG 166.67 MG IVPB (13:49)
[2024-05-26 13:57] LABS: Creatinine Urine 34.9 mg/dL
[2024-05-26 14:00] LABS: Sodium Urine Random 72 meq/L
[2024-05-26] MEDS: IPRATROPIUM 0.5 MG/ALBUTEROL SULFATE 2.5 MG AMPUL.NEB 3 ML INHALATION ×2 (14:04→21:21)
[2024-05-26 14:24] LABS: Anion Gap 10 mmol/L (4-12); Blood Urea Nitrogen 9 mg/dL (7-17); Calcium 8.3 mg/dL (8.4-10.2); Carbon Dioxide 26 mmol/L (22-30); Chloride 100 mmol/L (98-107); Estimated CRCL calculation 154 ml/min; Estimated Glomerular Filt Rate > 60; Glucose 88 mg/dL (65-110); Magnesium 2.2 mg/dL (1.6-2.3); Potassium 3.1 mmol/L (3.4-5.0); Sodium 136 mmol/L (137-145)
[2024-05-26 14:56] LABS: Thyroid Stimulating Hormone Reflex < 0.015 uIU/mL (0.465-4.68)
[2024-05-26 14:56] LABS: MRSA (PCR) DETECTED (NOT DETECTE)
[2024-05-26] MEDS: VANCOMYCIN 1,000 MG/NS 250 ML 1,000 MG/250 ML BAG 250 MG IVPB (15:13)
[2024-05-26] MEDS: ACETAMINOPHEN 325 MG TABLET 650 MG PO (15:19)
[2024-05-26] MEDS: LORazepam (*CRX) 0.5 MG TABLET PO (15:20)
[2024-05-26 15:44] LABS: Free T4 Free Thyroxine Reflex 3.45 ng/dL (0.78-2.19)
[2024-05-26] MEDS: POTASSIUM CHLORIDE 20 MEQ ER TABLET 40 MEQ PO (16:13)
[2024-05-26 16:43] LABS: Procalcitonin 0.2 ng/mL
[2024-05-26] MEDS: MORPHINE SULFATE (*CRX) 2 MG/ML INJ IV PUSH (19:09)
[2024-05-26] MEDS: HYDROmorphone HCL INJ (*CRX) 1 MG/ML SYR 0.5 MG IV PUSH ×2 (19:58→23:28)
[2024-05-26] MEDS: guaiFENesin 12 HR 600 MG TABCR 1200 MG PO (20:00)
[2024-05-26] MEDS: LINEZOLID 600 MG TABLET PO (20:00)
[2024-05-26] MEDS: MUPIROCIN 2% OINT 22 GM TUBE 1 APPLIC EACH NARE (20:02)
[2024-05-26] MEDS: HYDROcodone/acetaminophen (*CRX) 5-325 MG TABLET 1 TAB PO (21:04)
[2024-05-27] VITALS (10 sets, daily range): BP systolic 115–127; BP diastolic 48–54; PULSE 92–103; RESP 16–20; TEMP 36.8–37.5; O2SAT 95–98
[2024-05-27] MEDS: HYDROcodone/acetaminophen (*CRX) 5-325 MG TABLET 1 TAB PO ×4 (01:25→16:37)
[2024-05-27] MEDS: HYDROmorphone HCL INJ (*CRX) 1 MG/ML SYR 0.5 MG IV PUSH ×5 (02:44→19:02)
[2024-05-27 05:09] LABS: Basophils Percent Auto 0.1 % (0.2-1.2); Eosinophils Absolute Auto 0.2 K/mm3 (0-0.3); Eosinophils Percent Auto 1.1 % (0-4.4); Hematocrit 31.3 % (37.0-47.0); Hemoglobin 10.2 g/dL (12.0-15.0); Immature Granulocyte Absolute 0.17 K/mm3 (0.00-0.031); Immature Granulocyte Percent A 1.2 % (0-0.5); Lymphocytes Percent Auto 15.6 % (18.3-44.2); Mean Corpuscular HGB Conc 32.6 g/dl (32-36); Mean Corpuscular Hemoglobin 27.6 pg (26-34); Mean Corpuscular Volume 84.6 fl (80-100); Mean Platelet Volume 9.3 fl (7.4-10.4); Monocytes Absolute Auto 0.9 K/mm3 (0.1-0.6); Monocytes Percent Auto 6.6 % (2.6-8.5); Neutrophils Absolute Auto 10.7 K/mm3 (1.3-6.7); Neutrophils Percent Auto 75.4 % (45.5-73.1); Platelet Count Result 424 k/mm3 (150-375); Red Cell Distribution Width 13.3 % (11.5-14.5); White Blood Count 14.1 K/mm3 (4.5-10.0)
[2024-05-27 05:20] LABS: Anion Gap 6 mmol/L (4-12); Blood Urea Nitrogen 7 mg/dL (7-17); Calcium 8.5 mg/dL (8.4-10.2); Carbon Dioxide 29 mmol/L (22-30); Chloride 98 mmol/L (98-107); Estimated CRCL calculation 154 ml/min; Estimated Glomerular Filt Rate > 60; Glucose 93 mg/dL (65-110); Potassium 3.5 mmol/L (3.4-5.0); Sodium 133 mmol/L (137-145)
[2024-05-27] MEDS: IPRATROPIUM 0.5 MG/ALBUTEROL SULFATE 2.5 MG AMPUL.NEB 3 ML INHALATION ×3 (07:15→21:17)
[2024-05-27] MEDS: OSELTAMIVIR PHOSPHATE 75 MG CAPSULE PO ×2 (09:12→20:09)
[2024-05-27] MEDS: levoFLOXacin 750 MG TABLET PO (09:12)
[2024-05-27] MEDS: MUPIROCIN 2% OINT 22 GM TUBE 1 APPLIC EACH NARE ×2 (09:12→20:09)
[2024-05-27] MEDS: LINEZOLID 600 MG TABLET PO ×2 (09:12→20:08)
[2024-05-27] MEDS: guaiFENesin 12 HR 600 MG TABCR 1200 MG PO ×2 (09:13→20:08)
[2024-05-27] MEDS: ENOXAPARIN 40 MG/0.4 ML SYRINGE SUB-Q (09:13)
[2024-05-27] MEDS: LORazepam (*CRX) 0.5 MG TABLET PO (09:27)
--- NOTE | 2024-05-27 14:54 | PM.IMPN ---
Progress Note: A&P Assessment and Plan (1) Influenza A: Code(s): J10.1 - Influenza due to other identified influenza virus with other respiratory manifestations Status: Acute (2) Pneumonia: Qualifiers: Laterality: right Lung location: lower lobe of lung Pneumonia type: due to unspecified organism Qualified Code(s): J18.9 - Pneumonia, unspecified organism Code(s): J18.9 - Pneumonia, unspecified organism Status: Acute (3) Electrolyte abnormality: Code(s): E87.8 - Other disorders of electrolyte and fluid balance, not elsewhere classified Status: Acute (4) MRSA nasal colonization: Code(s): Z22.322 - Carrier or suspected carrier of Methicillin resistant Staphylococcus aureus Status: Acute (5) Hyperthyroidism: Code(s): E05.90 - Thyrotoxicosis, unspecified without thyrotoxic crisis or storm Status: Acute Plan The patient presented to the emergency department for fever and cough after having been diagnosed with influenza A, influenza B, and strep throat over the last couple of weeks She is positive for influenza A and given the need for hospitalization and severity of her illness she has been started on oseltamivir. Chest x-ray today shows multilobar pneumonia compared to a normal chest x-ray a little over a week ago. She has also been started on linezolid and levofloxacin for likely concomitant bacterial pneumonia, very possibly MRSA pneumonia - MRSA nasal screen was positive. -will continue Mupirocin ointment ordered twice daily to the nares. - sputum for culture collected and pending. Continue scheduled bronchodilators. - Legionella antigen, urine and serum osmolalities, and urine sodium collected for further evaluation - TSH ordered-pending Time Spent With Patient Time with patient: 25 - 35 minutes Subjective Date/time seen: 05/27/24 14:55 Interval history: 28-year-old female smoker with history of depression, anxiety, and hyperthyroidism not currently on medication who presented to the emergency department via EMS with complaints of fever and cough. She has had a cough for 2 weeks and she apparently has been seen urgent care multiple times and has been diagnosed with influenza A, influenza B, and strep throat. She was prescribed a Z-Irvin which she completed however she still feels poorly and continues to run a fever. She has a cough productive of mostly white colored phlegm. She is having pleuritic chest pain, mostly on the right side. appetite fail, she thinks she drinks enough fluids. She denies exertional chest pain, vomiting, diarrhea, lower extremity edema, and calf pain. temp in ed- 103.3? F. Labs are significant for WBC count of 16.4, hemoglobin 10.5, sodium 129, potassium 2.9, chloride 94, BUN 9, creatinine 0.48, calcium 8.2, lactic acid 1.1. She is positive for influenza A. Chest x-ray showed multilobar pneumonia. She was started on levofloxacin and oseltamivir and she is being admitted in this setting for close monitoring and further treatment. She is getting duonebs and mucinex. Review of Systems Review of Systems: 12 systems were reviewed and are negative except for as per HPI. Exam Narrative: General: Moderately ill-appearing female sitting up in bed. Weight: 86.2 kg. BMI: 28.9. HEENT: Mild exophthalmos, right greater than left. Slight dysconjugate gaze. Sclera anicteric. Tacky mucous membranes. Neck: Supple. Respiratory: Respirations are nonlabored and she is speaking in full sentences. Lung sounds are coarse. Cardiovascular: Regular rate and rhythm with S1-S2. Gastrointestinal: Abdomen is soft, nontender, and nondistended with positive bowel sounds. Skin: Warm and dry. Multiple tattoos. Extremities: No cyanosis, clubbing, or edema. Radial and pedal pulses intact. Neurological: Alert. Cranial nerves 2-12 are grossly intact. No gross focal deficits to casual conversation. Psychiatric: Pleasant and cooperative with normal mood and affect. Const: General: comfortable Objective Data Vital Signs Vital Signs: Vital Signs - 24 hr 05/26/24 16:00 05/26/24 20:00 05/26/24 20:00 Temperature 99.0 F 98.4 F Pulse Rate 100 96 Respiratory Rate 18 17 Blood Pressure 122/63 121/57 L Pulse Oximetry 100 100 Oxygen Delivery Room Air 05/26/24 21:22 05/26/24 21:43 05/26/24 21:44 Temperature Pulse Rate 102 H 97 102 H Respiratory Rate 20 20 Blood Pressure Pulse Oximetry 99 Oxygen Delivery Room Air 05/27/24 04:49 05/27/24 07:15 05/27/24 07:15 Temperature 98.5 F Pulse Rate 100 92 92 Respiratory Rate 18 18 18 Blood Pressure 127/48 L Pulse Oximetry 95 96 Oxygen Delivery Room Air 05/27/24 07:25 05/27/24 09:30 05/27/24 13:05 Temperature Pulse Rate 96 96 Respiratory Rate 20 20 20 Blood Pressure Pulse Oximetry 96 Oxygen Delivery Room Air 05/27/24 13:15 Temperature Pulse Rate 98 Respiratory Rate 20 Blood Pressure Pulse Oximetry Oxygen Delivery Intake/Output Intake/Output: Intake & Output 05/24/24 05/25/24 05/26/24 05/27/24 23:59 23:59 23:59 23:59 Intake Total 2679.6 690 Balance 2679.6 690 Meds/Results Medications: Active Medications Generic Name Dose Route Start Last Admin Trade Name Freq PRN Reason Stop Dose Admin Acetaminophen 650 mg 05/26/24 08:47 05/26/24 15:19 Acetaminophen 325 Mg Tablet PO 650 mg Q4H PRN Administration Mild Pain (1-3) or Fever Hydrocodone Bitart/Acetaminophen 1 tab 05/26/24 18:16 05/27/24 10:54 Hydrocodone/Acetaminophen (*Crx) 5-325 Mg Tablet PO 1 tab Q6H PRN Administration Pain Rated 4-6 Albuterol/Ipratropium 3 ml 05/26/24 14:00 05/27/24 13:05 Ipratropium 0.5 Mg/Albuterol Sulfate 2.5 Mg Ampul.Neb 3 Ml INHALATION 3 ml Q6HRT DORY Administration Enoxaparin Sodium 40 mg 05/27/24 09:00 05/27/24 09:13 Enoxaparin 40 Mg/0.4 Ml Syringe SUB-Q 40 mg DAILY DORY Administration Guaifenesin 1,200 mg 05/26/24 21:00 05/27/24 09:13 Guaifenesin 12 Hr 600 Mg Tabcr PO 1,200 mg Q12HR DORY Administration Hydromorphone HCl 0.5 mg 05/26/24 22:47 05/27/24 14:02 Hydromorphone Hcl Inj (*Crx) 1 Mg/Ml Syr IV PUSH 0.5 mg Q3H PRN Administration Pain Rated 7-10 Levofloxacin 750 mg 05/27/24 09:00 05/27/24 09:12 Levofloxacin 750 Mg Tablet PO 750 mg DAILY DORY Administration Linezolid 600 mg 05/26/24 21:00 05/27/24 09:12 Linezolid 600 Mg Tablet PO 600 mg Q12HR DORY Administration Lorazepam 0.5 mg 05/26/24 14:23 05/27/24 09:27 Lorazepam (*Crx) 0.5 Mg Tablet PO 0.5 mg DAILY PRN Administration anxiety Mupirocin 1 applic 05/26/24 21:00 05/27/24 09:12 Mupirocin 2% Oint 22 Gm Tube EACH NARE 05/31/24 09:01 1 applic Q12HR DORY Administration Oseltamivir Phosphate 75 mg 05/26/24 09:00 05/27/24 09:12 Oseltamivir Phosphate 75 Mg Capsule PO 05/31/24 08:59 75 mg Q12HR DORY Administration Radiology Results: ITS Impressions Chest X-Ray 05/26/24 07:05 Impression: Multilobar pneumonia, worst in the right middle and lower lobes. Probable minimal involvement of the right upper and left lower lobes. Labs Labs: Laboratory Results - last 24 hr 05/26/24 05/26/24 05/26/24 07:41 13:31 14:02 WBC RBC Hgb Hct MCV MCH MCHC RDW Plt Count MPV Immature Gran % (Auto) Neut % (Auto) Lymph % (Auto) [place] % (Auto) Eos % (Auto) Baso % (Auto) Lymph # (Auto) [place] # (Auto) Eos # (Auto) Baso # (Auto) Abs Immat Gran (auto) Absolute Neuts (auto) Absolute Nucleated RBC Nucleated RBC % Sodium Potassium Chloride Carbon Dioxide Anion Gap BUN Creatinine Estim Creat Clear Calc Estimated GFR Glucose Calcium Magnesium Procalcitonin 0.2 TSH (Reflex) < 0.015 L Free T4 3.45 H Nasal MRSA (PCR) Detected A* 05/27/24 04:54 WBC 14.1 H RBC 3.70 L Hgb 10.2 L Hct 31.3 L MCV 84.6 MCH 27.6 MCHC 32.6 RDW 13.3 Plt Count 424 H MPV 9.3 Immature Gran % (Auto) 1.2 H Neut % (Auto) 75.4 H Lymph % (Auto) 15.6 L [place] % (Auto) 6.6 Eos % (Auto) 1.1 Baso % (Auto) 0.1 L Lymph # (Auto) 2.20 [place] # (Auto) 0.9 H Eos # (Auto) 0.2 Baso # (Auto) 0.0 Abs Immat Gran (auto) 0.17 H Absolute Neuts (auto) 10.7 H Absolute Nucleated RBC 0.000 Nucleated RBC % 0.0 Sodium 133 L Potassium 3.5 Chloride 98 Carbon Dioxide 29 Anion Gap 6 BUN 7 Creatinine 0.52 L Estim Creat Clear Calc 154 Estimated GFR > 60 Glucose 93 Calcium 8.5 Magnesium 2.0 Procalcitonin TSH (Reflex) Free T4 Nasal MRSA (PCR) Quality VTE Prophylaxis VTE prophylaxis: pharmacologic ordered
[2024-05-27] MEDS: KETOROLAC 15 MG/ML VIAL (*BKC) IV PUSH (22:06)
[2024-05-28] VITALS (12 sets, daily range): BP systolic 106–132; BP diastolic 41–62; PULSE 87–103; RESP 14–20; TEMP 36.3–37.3; O2SAT 95–99
[2024-05-28] MEDS: HYDROmorphone HCL INJ (*CRX) 1 MG/ML SYR 0.5 MG IV PUSH ×7 (01:27→22:04)
[2024-05-28] MEDS: HYDROcodone/acetaminophen (*CRX) 5-325 MG TABLET 1 TAB PO ×2 (03:07→18:33)
[2024-05-28] MEDS: IPRATROPIUM 0.5 MG/ALBUTEROL SULFATE 2.5 MG AMPUL.NEB 3 ML INHALATION ×3 (07:37→21:35)
[2024-05-28] MEDS: LIDOCAINE 5% PATCH 1 PATCH TRANSDERM (08:09)
[2024-05-28] MEDS: guaiFENesin 12 HR 600 MG TABCR 1200 MG PO ×2 (08:09→20:25)
[2024-05-28] MEDS: OSELTAMIVIR PHOSPHATE 75 MG CAPSULE PO ×2 (08:10→20:25)
[2024-05-28] MEDS: ENOXAPARIN 40 MG/0.4 ML SYRINGE SUB-Q (08:10)
[2024-05-28] MEDS: levoFLOXacin 750 MG TABLET PO (08:10)
[2024-05-28] MEDS: LINEZOLID 600 MG TABLET PO ×2 (08:10→20:25)
[2024-05-28] MEDS: MUPIROCIN 2% OINT 22 GM TUBE 1 APPLIC EACH NARE ×2 (08:11→20:29)
--- NOTE | 2024-05-28 09:32 | PM.IMPN ---
Progress Note: A&P Assessment and Plan (1) Pneumonia: Qualifiers: Laterality: right Lung location: lower lobe of lung Pneumonia type: due to unspecified organism Qualified Code(s): J18.9 - Pneumonia, unspecified organism Code(s): J18.9 - Pneumonia, unspecified organism Status: Acute Assessment and Plan: CXR: Multilobar pneumonia, worst in the right middle and lower lobes. Probable minimal involvement of the right upper and left lower lobes. Possibly MRSA pneumonia as her MRSA nasal screen was positive. - Antibiotics: levaquin and linezolid on 05/26 - Viral PCR: positive for flu a - MRSA positive, mupirocin to the nares BID - legionella, mycoplasma and pneumococcal pending - sputum pending - no supplemental O2 requirement. Keep SpO2 greater than 88% - Monitor vital signs, I&Os, neuro status and patient is a fall risk - Follow WBC, serum electrolytes, temperature curves and cultures (2) Influenza A: Code(s): J10.1 - Influenza due to other identified influenza virus with other respiratory manifestations Status: Acute Assessment and Plan: Viral panel: Flu A - Tamiflu started on 05/26 (3) Electrolyte abnormality: Code(s): E87.8 - Other disorders of electrolyte and fluid balance, not elsewhere classified Status: Acute Assessment and Plan: Na 129 and K 2.9 on admission. Received supplementation. Na 132 and K 3.5 on am labs Continue to monitor (4) MRSA nasal colonization: Code(s): Z22.322 - Carrier or suspected carrier of Methicillin resistant Staphylococcus aureus Status: Acute Assessment and Plan: see plan above #1 (5) Hyperthyroidism: Code(s): E05.90 - Thyrotoxicosis, unspecified without thyrotoxic crisis or storm Status: Acute Assessment and Plan: History of hyperthyroidism. - TSH 0.015 - T4 3.45 Time Spent With Patient Time with patient: 25 - 35 minutes Subjective Date/time seen: 05/28/24 09:32 Interval history: 29 year old female smoker with history of depression, anxiety, and hyperthyroidism not currently on medication who presented to the emergency department via EMS with complaints of fever and cough. Patient is pleasant sitting up in bed. She states that she is feeling a bit better today and that her shortness of breath has improved. She continues to endorse shortness of breath with exertion and a cough but denies chest pain, palpitations, nausea/vomiting and abdominal pain. Review of Systems Review of Systems: All systems reviewed & are unremarkable except as noted in HPI and below Exam Narrative: AF HR 99 RR 14 SPO2 97 BP 124/56 General: female in no acute respiratory distress who is nontoxic appearing, lying semi recumbent in bed. HEENT: Normocephalic. Atraumatic. Extraocular movement intact. Sclera clear and anicteric. No facial asymmetry. Neck: Neck was supple. No dominant adenopathy, thyromegaly or masses. 2+ carotid upstrokes without bruits. Chest: Lungs are diminished to auscultation bilaterally with coarseness to the bases. No wheezes. CV: Heart was regular rate and rhythm. S1-S2. No murmurs, gallops, or rubs. Abd: Abdomen was soft. Nontender. Nondistended. Positive bowel sounds. No organomegaly or masses. Ext: No clubbing, cyanosis, or edema. 2+ DP pulses bilaterally. Neuro: Patient is alert and oriented x4. Speech is clear. Objective Data Vital Signs Vital Signs: Vital Signs - 24 hr 05/27/24 13:05 05/27/24 13:15 05/27/24 14:00 Temperature 99.5 F Pulse Rate 96 98 103 H Respiratory Rate 20 20 16 Blood Pressure 120/54 L Pulse Oximetry 97 Oxygen Delivery 05/27/24 20:00 05/27/24 20:00 05/27/24 21:17 Temperature 98.2 F Pulse Rate 101 H 100 Respiratory Rate 17 20 Blood Pressure 115/53 L Pulse Oximetry 98 Oxygen Delivery Room Air 05/27/24 21:20 05/28/24 04:56 05/28/24 07:38 Temperature 98.2 F Pulse Rate 100 87 Respiratory Rate 17 Blood Pressure 106/41 L Pulse Oximetry 96 99 95 Oxygen Delivery Room Air Room Air 05/28/24 07:38 05/28/24 07:49 05/28/24 08:00 Temperature 98.8 F Pulse Rate 95 100 95 Respiratory Rate 20 20 14 Blood Pressure 131/62 Pulse Oximetry 95 Oxygen Delivery Intake/Output Intake/Output: Intake & Output 05/25/24 05/26/24 05/27/24 05/28/24 23:59 23:59 23:59 23:59 Intake Total 2679.6 2460 450 Balance 2679.6 2460 450 Meds/Results Medications: Active Medications Generic Name Dose Route Start Last Admin Trade Name Freq PRN Reason Stop Dose Admin Acetaminophen 650 mg 05/26/24 08:47 05/26/24 15:19 Acetaminophen 325 Mg Tablet PO 650 mg Q4H PRN Administration Mild Pain (1-3) or Fever Hydrocodone Bitart/Acetaminophen 1 tab 05/26/24 18:16 05/28/24 03:07 Hydrocodone/Acetaminophen (*Crx) 5-325 Mg Tablet PO 1 tab Q6H PRN Administration Pain Rated 4-6 Albuterol/Ipratropium 3 ml 05/26/24 14:00 05/28/24 07:37 Ipratropium 0.5 Mg/Albuterol Sulfate 2.5 Mg Ampul.Neb 3 Ml INHALATION 3 ml Q6HRT DORY Administration Enoxaparin Sodium 40 mg 05/27/24 09:00 05/28/24 08:10 Enoxaparin 40 Mg/0.4 Ml Syringe SUB-Q 40 mg DAILY DORY Administration Guaifenesin 1,200 mg 05/26/24 21:00 05/28/24 08:09 Guaifenesin 12 Hr 600 Mg Tabcr PO 1,200 mg Q12HR DORY Administration Hydromorphone HCl 0.5 mg 05/26/24 22:47 05/28/24 08:08 Hydromorphone Hcl Inj (*Crx) 1 Mg/Ml Syr IV PUSH 0.5 mg Q3H PRN Administration Pain Rated 7-10 Levofloxacin 750 mg 05/27/24 09:00 05/28/24 08:10 Levofloxacin 750 Mg Tablet PO 750 mg DAILY DORY Administration Lidocaine 1 patch 05/28/24 09:00 05/28/24 08:09 Lidocaine 5% Patch TRANSDERM 1 patch DAILY DORY Administration Linezolid 600 mg 05/26/24 21:00 05/28/24 08:10 Linezolid 600 Mg Tablet PO 600 mg Q12HR DORY Administration Lorazepam 0.5 mg 05/26/24 14:23 05/27/24 09:27 Lorazepam (*Crx) 0.5 Mg Tablet PO 0.5 mg DAILY PRN Administration anxiety Mupirocin 1 applic 05/26/24 21:00 05/28/24 08:11 Mupirocin 2% Oint 22 Gm Tube EACH NARE 05/31/24 09:01 1 applic Q12HR DORY Administration Oseltamivir Phosphate 75 mg 05/26/24 09:00 05/28/24 08:10 Oseltamivir Phosphate 75 Mg Capsule PO 05/31/24 08:59 75 mg Q12HR DORY Administration Radiology Results: ITS Impressions Chest X-Ray 05/26/24 07:05 Impression: Multilobar pneumonia, worst in the right middle and lower lobes. Probable minimal involvement of the right upper and left lower lobes. Quality VTE Prophylaxis VTE prophylaxis: mechanical ordered
[2024-05-28 10:02] LABS: Basophils Percent Auto 0.2 % (0.2-1.2); Eosinophils Absolute Auto 0.1 K/mm3 (0-0.3); Eosinophils Percent Auto 1.3 % (0-4.4); Hematocrit 28.8 % (37.0-47.0); Hemoglobin 9.1 g/dL (12.0-15.0); Immature Granulocyte Absolute 0.06 K/mm3 (0.00-0.031); Immature Granulocyte Percent A 0.6 % (0-0.5); Lymphocytes Absolute Auto 1.44 K/mm3 (0.9-3.2); Lymphocytes Percent Auto 13.6 % (18.3-44.2); Mean Corpuscular HGB Conc 31.6 g/dl (32-36); Mean Corpuscular Hemoglobin 26.4 pg (26-34); Mean Corpuscular Volume 83.5 fl (80-100); Mean Platelet Volume 9.3 fl (7.4-10.4); Monocytes Absolute Auto 0.8 K/mm3 (0.1-0.6); Monocytes Percent Auto 7.5 % (2.6-8.5); Neutrophils Absolute Auto 8.2 K/mm3 (1.3-6.7); Neutrophils Percent Auto 76.8 % (45.5-73.1); Platelet Count Result 427 k/mm3 (150-375); Red Blood Count 3.45 M/mm3 (4.2-5.4); Red Cell Distribution Width 13.2 % (11.5-14.5); White Blood Count 10.6 K/mm3 (4.5-10.0)
[2024-05-28] MEDS: ONDANSETRON INJ 4 MG/2 ML VIAL IV PUSH ×2 (10:12→16:52)
[2024-05-28 10:16] LABS: Alanine Aminotransferase 19 U/L (6-35); Albumin Level 2.6 g/dL (3.5-5.1); Alkaline Phosphatase 114 U/L (38-126); Anion Gap 7 mmol/L (4-12); Aspartate Amino Transferase 22 U/L (14-36); Bilirubin,Total 0.5 mg/dL (0.2-1.3); Blood Urea Nitrogen 8 mg/dL (7-17); Calcium 8.1 mg/dL (8.4-10.2); Carbon Dioxide 29 mmol/L (22-30); Chloride 96 mmol/L (98-107); Estimated CRCL calculation 167 ml/min; Estimated Glomerular Filt Rate > 60; Glucose 97 mg/dL (65-110); Potassium 3.5 mmol/L (3.4-5.0); Sodium 132 mmol/L (137-145)
[2024-05-28] MEDS: LORazepam (*CRX) 0.5 MG TABLET PO (18:33)
[2024-05-29] VITALS (14 sets, daily range): BP systolic 116–120; BP diastolic 55–60; PULSE 86–102; RESP 16–20; TEMP 36.1–37.8; O2SAT 93–100
--- NOTE | 2024-05-29 | ECHO_ITS ---
Patient Info Name: Myrna Barclay Age: 29 years : 1995 Gender: Female Ht: 68 in Wt: 189 lbs BSA: 2.05 m2 HR: 86 bpm BP: 116 / 58 mmHg Technical Quality: Fair Exam Date: 05/29/2024 10:48 AM Exam Location: Echo Lab Patient Status: Inpatient Admit Date: 05/28/2024 Staff Ordering Physician: Casandra Stanley PA-C Hedis Abstractor: Cleveland Nevarez RDCS Attending Provider: Casandra Stanley PA-C Referring Physician: Jaden GARVIN; Exam Type: CA echo doppler color flow Study Info Indications - R/O ENDOCARDITIS W/ GRAM+ BCX Complete two-dimensional, color flow and Doppler transthoracic echocardiogram is performed. Summary 1. Complete two-dimensional, color flow and Doppler transthoracic echocardiogram is performed. 2. Left ventricular chamber dimension is normal. 3. Left ventricular systolic function is normal, estimated at 60-65%. 4. The left ventricular diastolic function is normal. 5. E/e' 5 is not elevated. 6. Left atrial chamber dimension is mildly enlarged. 7. Right atrial chamber dimension is mildly enlarged. 8. Dilated inferior vena cava with >50% collapse upon inspiration consistent with elevated right atrial pressure, 10 mmHg. Left Ventricle E/e' 5 is not elevated. Left ventricular chamber dimension is normal. Left ventricular systolic function is normal, estimated at 60-65%. The left ventricular diastolic function is normal. Right Ventricle Right ventricular systolic function is normal and with normal TAPSE 3.0 cm. Right ventricular chamber dimension is normal. Left Atria Left atrial chamber dimension is mildly enlarged. Right Atria Right atrial chamber dimension is mildly enlarged. Aortic Valve The aortic valve is trileaflet. There is no aortic valve stenosis. There is no aortic valve regurgitation. No aortic valve vegetation visualized. Pulmonic Valve There is no pulmonic regurgitation. No pulmonic valve vegetation visualized. Mitral Valve There is no mitral valve stenosis. There is no mitral valve regurgitation. No mitral valve vegetation visualized. Tricuspid Valve There is no tricuspid valve regurgitation. No tricuspid valve vegetation visualized. Pericardium/Pleural There is no pericardial effusion. Inferior Vena Cava Dilated inferior vena cava with >50% collapse upon inspiration consistent with elevated right atrial pressure, 10 mmHg. Aorta The aortic root size at the sinus of Valsalva is normal. Left Ventricular Outflow Tract Name Value Normal LVOT 2D LVOT Diameter 1.7 cm LVOT Doppler LVOT Peak Gradient 10 mmHg LVOT Mean Gradient 6 mmHg LVOT VTI 27 cm LVOT VTI/AV VTI Ratio 0.8 LVOT Stroke Volume 64 ml LVOT CO 6.0 l/min LVOT CI 2.9 l/min/m2 Pulmonic Valve Name Value Normal RVOT Doppler RVOT Peak Gradient 6 mmHg PV Doppler PV Peak Gradient 7 mmHg Mitral Valve Name Value Normal MV Doppler MV Decel [place] 843 cm/s2 MV PHT 34 ms MV Area (PHT) 6.4 cm2 4.0-5.0 MV Diastolic Function MV E Peak Velocity 100 cm/s MV A Peak Velocity 80 cm/s MV E/A 1.3 MV Decel Time 119 ms MV Annular TDI MV E/e' (Septal) 8.1 <=8.0 MV E/e' (Lateral) 3.8 <=8.0 MV E/e' (Average) 6.0 Tricuspid Valve Name Value Normal Estimated PAP/RSVP RA Pressure 10 mmHg <=5 Aorta Name Value Normal Ascending Aorta Ao Root Diameter (MM) 2.7 cm Ao Root Diam Index (MM) 1.3 cm/m2 Aortic Valve Name Value Normal AV Doppler AV Peak Velocity 185 cm/s AV Peak Gradient 14 mmHg AV Mean Gradient 8 mmHg AV VTI 35 cm AV Area (Cont Eq VTI) 1.8 cm2 >=3.0 AV Area (Cont Eq Finn) 2.0 cm2 AV Regurgitation 2D LVOT Area 2.4 cm2 Ventricles Name Value Normal LV Dimensions 2D/MM IVS Diastolic Thickness (2D) 0.8 cm 0.6-1.0 LVID Diastole (2D) 4.5 cm 3.8-5.2 LVIW Diastolic Thickness (2D) 1.4 cm 0.6-0.9 LVID Systole (2D) 2.7 cm 2.2-3.5 LVOT Diameter 1.7 cm LV Mass (2D Cubed) 179.03 g 67.00-162.00 LV Mass Index (2D Cubed) 87 g/m2 43-95 Relative Wall Thickness (2D) 0.64 LV Fractional Shortening/Ejection Fraction 2D/MM LV Fractional Shortening (2D) 39 % 27-45 LV EF (2D Teicholz) 69 % 54-74 LV Diastolic Volume (4C MOD) 136 ml LV EF (4C MOD) 52 % LV Diastolic Volume (2C MOD) 115 ml LV EF (2C MOD) 74 % LV Diastolic Volume (BP MOD) 127 ml 46-106 LV Diastolic Volume Index (BP MOD) 62 ml/m2 29-61 LV Systolic Volume (BP MOD) 45 ml 14-42 LV Systolic Volume Index (BP MOD) 22 ml/m2 8-24 LV EF (BP MOD) 64 % 54-74 LV Diastolic Length (4C) 9.2 cm LV Systolic Length (4C) 7.5 cm LV Stroke Volume (4C MOD) 71 ml Atria Name Value Normal LA Dimensions LA Dimension (MM) 4.0 cm 2.7-3.8 LA Volume (4C A-L) 71 ml LA Volume (BP A-L) 69 ml RA Dimensions RA Area (4C) 24.1 cm2 <=18.0 Report Signatures
[2024-05-29] MEDS: HYDROcodone/acetaminophen (*CRX) 5-325 MG TABLET 1 TAB PO ×3 (01:17→17:22)
[2024-05-29] MEDS: HYDROmorphone HCL INJ (*CRX) 1 MG/ML SYR 0.5 MG IV PUSH ×6 (03:51→22:40)
[2024-05-29] MEDS: IPRATROPIUM 0.5 MG/ALBUTEROL SULFATE 2.5 MG AMPUL.NEB 3 ML INHALATION ×4 (04:51→21:21)
[2024-05-29 05:37] LABS: Basophils Percent Auto 0.3 % (0.2-1.2); Eosinophils Absolute Auto 0.2 K/mm3 (0-0.3); Eosinophils Percent Auto 2.7 % (0-4.4); Hematocrit 31.9 % (37.0-47.0); Hemoglobin 9.9 g/dL (12.0-15.0); Immature Granulocyte Absolute 0.04 K/mm3 (0.00-0.031); Immature Granulocyte Percent A 0.4 % (0-0.5); Lymphocytes Absolute Auto 2.36 K/mm3 (0.9-3.2); Lymphocytes Percent Auto 26.1 % (18.3-44.2); Mean Corpuscular Hemoglobin 26.6 pg (26-34); Mean Corpuscular Volume 85.8 fl (80-100); Mean Platelet Volume 9.1 fl (7.4-10.4); Monocytes Absolute Auto 0.8 K/mm3 (0.1-0.6); Monocytes Percent Auto 8.5 % (2.6-8.5); Neutrophils Absolute Auto 5.6 K/mm3 (1.3-6.7); Platelet Count Result 444 k/mm3 (150-375); Red Blood Count 3.72 M/mm3 (4.2-5.4); Red Cell Distribution Width 13.2 % (11.5-14.5); White Blood Count 9.1 K/mm3 (4.5-10.0)
[2024-05-29 05:51] LABS: Alanine Aminotransferase 26 U/L (6-35); Albumin Level 2.9 g/dL (3.5-5.1); Alkaline Phosphatase 124 U/L (38-126); Anion Gap 8 mmol/L (4-12); Aspartate Amino Transferase 29 U/L (14-36); Bilirubin,Total 0.6 mg/dL (0.2-1.3); Blood Urea Nitrogen 8 mg/dL (7-17); Calcium 8.6 mg/dL (8.4-10.2); Carbon Dioxide 30 mmol/L (22-30); Chloride 97 mmol/L (98-107); Estimated CRCL calculation 142 ml/min; Estimated Glomerular Filt Rate > 60; Glucose 101 mg/dL (65-110); Potassium 3.9 mmol/L (3.4-5.0); Sodium 135 mmol/L (137-145)
[2024-05-29] MEDS: LINEZOLID 600 MG TABLET PO ×2 (08:14→20:33)
[2024-05-29] MEDS: levoFLOXacin 750 MG TABLET PO (08:14)
[2024-05-29] MEDS: OSELTAMIVIR PHOSPHATE 75 MG CAPSULE PO ×2 (08:14→20:33)
[2024-05-29] MEDS: guaiFENesin 12 HR 600 MG TABCR 1200 MG PO ×2 (08:14→20:33)
[2024-05-29] MEDS: MUPIROCIN 2% OINT 22 GM TUBE 1 APPLIC EACH NARE ×2 (08:15→20:32)
[2024-05-29] MEDS: LIDOCAINE 5% PATCH 1 PATCH TRANSDERM (08:15)
[2024-05-29] MEDS: ENOXAPARIN 40 MG/0.4 ML SYRINGE SUB-Q (08:15)
--- NOTE | 2024-05-29 08:37 | P.PNIM_ITS ---
Progress Note: A&P Assessment and Plan (1) Sepsis: Code(s): A41.9 - Sepsis, unspecified organism Status: Acute Assessment and Plan: Meets SIRS criteria: febrile, leukocytosis, tachycardia - lactic acid: 1.1 - suspected source: Pneumonia - Antibiotics: levaquin and linezolid on 05/26 - MRSA positive, mupirocin to the nares BID - blood cultures obtained on 05/26: final - MRSA with resistance to clindamycin, erythromycin, and oxacillin. - repeat blood cultures obtained on 05/29: pending - Echo ordered given gram + blood cultures to rule out endocarditis: LVEF 60- 65%, no evidence of endocarditis documented - Urinalysis nonconcerning for infection - CXR: Multilobar pneumonia, worst in the right middle and lower lobes. Probable minimal involvement of the right upper and left lower lobes. (2) Pneumonia: Qualifiers: Laterality: right Lung location: lower lobe of lung Pneumonia type: due to unspecified organism Qualified Code(s): J18.9 - Pneumonia, unspecified organism Code(s): J18.9 - Pneumonia, unspecified organism Status: Acute Assessment and Plan: CXR: Multilobar pneumonia, worst in the right middle and lower lobes. Probable minimal involvement of the right upper and left lower lobes. Possibly MRSA pneumonia as her MRSA nasal screen was positive. - Antibiotics: levaquin and linezolid on 05/26 - Viral PCR: positive for flu a - MRSA positive, mupirocin to the nares BID - legionella, mycoplasma and pneumococcal pending - sputum pending - blood cultures obtained on 05/26: final - MRSA with resistance to clindamycin, erythromycin, and oxacillin. - repeat blood cultures obtained on 05/29: pending - Echo ordered given gram + blood cultures to rule out endocarditis: LVEF 60- 65%, no evidence of endocarditis documented - no supplemental O2 requirement. Keep SpO2 greater than 88% - Monitor vital signs, I&Os, neuro status and patient is a fall risk - Follow WBC, serum electrolytes, temperature curves and cultures (3) Influenza A: Code(s): J10.1 - Influenza due to other identified influenza virus with other respiratory manifestations Status: Acute Assessment and Plan: Viral panel: Flu A - Tamiflu started on 05/26 (4) Electrolyte abnormality: Code(s): E87.8 - Other disorders of electrolyte and fluid balance, not elsewhere classified Status: Acute Assessment and Plan: Na 129 and K 2.9 on admission. Received supplementation. Na 135 and K 3.9 on am labs Continue to monitor (5) MRSA nasal colonization: Code(s): Z22.322 - Carrier or suspected carrier of Methicillin resistant Staphylococcus aureus Status: Acute Assessment and Plan: see plan above #1 (6) Hyperthyroidism: Code(s): E05.90 - Thyrotoxicosis, unspecified without thyrotoxic crisis or storm Status: Acute Assessment and Plan: History of hyperthyroidism. - TSH 0.015 - T4 3.45 Time Spent With Patient Time with patient: 25 - 35 minutes Subjective Date/time seen: 05/29/24 08:37 Interval history: 29 year old female smoker with history of depression, anxiety, and hyperthyroidism not currently on medication who presented to the emergency department via EMS with complaints of fever and cough. Patient is pleasant lying comfortably in bed. She is endorsing pain to her right side rib area. She notes that she was having an intense coughing fit when she felt her right rib pop. She continues to have a productive cough but notes that her shortness of breath has slightly improved. She states that she has had emesis episode secondary to her coughing and congestion. She denies any blood in the vomit. She has no other complaints denies chest pain, palpitations, and abdominal pain. Review of Systems Review of Systems: All systems reviewed & are unremarkable except as noted in HPI and below Exam Narrative: AF HR86 RR20 SpO2 93 BP 116/58 General: female in no acute respiratory distress who is nontoxic appearing, lying semi recumbent in bed. HEENT: Normocephalic. Atraumatic. Extraocular movement intact. Sclera clear and anicteric. No facial asymmetry. Chest: Lungs are diminished to auscultation bilaterally with coarseness to the bases. No wheezes. CV: Heart was regular rate and rhythm. S1-S2. No murmurs, gallops, or rubs. Abd: Abdomen was soft. Nontender. Nondistended. Positive bowel sounds. No organomegaly or masses. Ext: No clubbing, cyanosis, or edema. 2+ DP pulses bilaterally. Neuro: Patient is alert and oriented x4. Speech is clear. Objective Data Vital Signs Vital Signs: Vital Signs - 24 hr 05/28/24 12:00 05/28/24 14:20 05/28/24 14:35 Temperature 98.8 F Pulse Rate 93 92 96 Respiratory Rate 14 20 20 Blood Pressure 113/48 L Pulse Oximetry 97 Oxygen Delivery 05/28/24 16:00 05/28/24 20:00 05/28/24 21:48 Temperature 99.1 F 97.4 F L Pulse Rate 99 103 H 101 H Respiratory Rate 14 18 20 Blood Pressure 124/56 L 132/50 L Pulse Oximetry 97 98 Oxygen Delivery 05/28/24 21:49 05/28/24 21:58 05/29/24 00:00 Temperature 97 F L Pulse Rate 103 H 95 Respiratory Rate 20 18 Blood Pressure 120/60 Pulse Oximetry 97 94 Oxygen Delivery Room Air 05/29/24 04:00 05/29/24 04:53 Temperature 97.9 F Pulse Rate 93 92 Respiratory Rate 16 16 Blood Pressure 116/58 L Pulse Oximetry 99 Oxygen Delivery Intake/Output Intake/Output: Intake & Output 05/26/24 05/27/24 05/28/24 05/29/24 23:59 23:59 23:59 23:59 Intake Total 2679.6 2460 1048 800 Balance 2679.6 2460 1048 800 Meds/Results Medications: Active Medications Generic Name Dose Route Start Last Admin Trade Name Freq PRN Reason Stop Dose Admin Acetaminophen 650 mg 05/26/24 08:47 05/26/24 15:19 Acetaminophen 325 Mg Tablet PO 650 mg Q4H PRN Administration Mild Pain (1-3) or Fever Hydrocodone Bitart/Acetaminophen 1 tab 05/26/24 18:16 05/29/24 06:53 Hydrocodone/Acetaminophen (*Crx) 5-325 Mg Tablet PO 1 tab Q6H PRN Administration Pain Rated 4-6 Albuterol/Ipratropium 3 ml 05/26/24 14:00 05/29/24 04:51 Ipratropium 0.5 Mg/Albuterol Sulfate 2.5 Mg Ampul.Neb 3 Ml INHALATION 3 ml Q6HRT DORY Administration Enoxaparin Sodium 40 mg 05/27/24 09:00 05/29/24 08:15 Enoxaparin 40 Mg/0.4 Ml Syringe SUB-Q 40 mg DAILY DORY Administration Guaifenesin 1,200 mg 05/26/24 21:00 05/29/24 08:14 Guaifenesin 12 Hr 600 Mg Tabcr PO 1,200 mg Q12HR DORY Administration Hydromorphone HCl 0.5 mg 05/26/24 22:47 05/29/24 08:15 Hydromorphone Hcl Inj (*Crx) 1 Mg/Ml Syr IV PUSH 0.5 mg Q3H PRN Administration Pain Rated 7-10 Levofloxacin 750 mg 05/27/24 09:00 05/29/24 08:14 Levofloxacin 750 Mg Tablet PO 750 mg DAILY DORY Administration Lidocaine 1 patch 05/28/24 09:00 05/29/24 08:15 Lidocaine 5% Patch TRANSDERM 1 patch DAILY DORY Administration Linezolid 600 mg 05/26/24 21:00 05/29/24 08:14 Linezolid 600 Mg Tablet PO 600 mg Q12HR DORY Administration Lorazepam 0.5 mg 05/26/24 14:23 05/28/24 18:33 Lorazepam (*Crx) 0.5 Mg Tablet PO 0.5 mg DAILY PRN Administration anxiety Mupirocin 1 applic 05/26/24 21:00 05/29/24 08:15 Mupirocin 2% Oint 22 Gm Tube EACH NARE 05/31/24 09:01 1 applic Q12HR DORY Administration Ondansetron HCl 4 mg 05/28/24 09:58 05/28/24 16:52 Ondansetron Inj 4 Mg/2 Ml Vial IV PUSH 4 mg Q6H PRN Administration Nausea And Vomiting Oseltamivir Phosphate 75 mg 05/26/24 09:00 05/29/24 08:14 Oseltamivir Phosphate 75 Mg Capsule PO 05/31/24 08:59 75 mg Q12HR DORY Administration Radiology Results: ITS Impressions Chest X-Ray 05/26/24 07:05 Impression: Multilobar pneumonia, worst in the right middle and lower lobes. Probable minimal involvement of the right upper and left lower lobes. Labs Labs: Laboratory Results - last 24 hr 05/28/24 05/29/24 09:49 05:30 WBC 10.6 H 9.1 RBC 3.45 L 3.72 L Hgb 9.1 L 9.9 L Hct 28.8 L 31.9 L MCV 83.5 85.8 MCH 26.4 26.6 MCHC 31.6 L 31.0 L RDW 13.2 13.2 Plt Count 427 H 444 H MPV 9.3 9.1 Immature Gran % (Auto) 0.6 H 0.4 Neut % (Auto) 76.8 H 62.0 Lymph % (Auto) 13.6 L 26.1 [place] % (Auto) 7.5 8.5 Eos % (Auto) 1.3 2.7 Baso % (Auto) 0.2 0.3 Lymph # (Auto) 1.44 2.36 [place] # (Auto) 0.8 H 0.8 H Eos # (Auto) 0.1 0.2 Baso # (Auto) 0.0 0.0 Abs Immat Gran (auto) 0.06 H 0.04 H Absolute Neuts (auto) 8.2 H 5.6 Absolute Nucleated RBC 0.000 0.000 Nucleated RBC % 0.0 0.0 Sodium 132 L 135 L Potassium 3.5 3.9 Chloride 96 L 97 L Carbon Dioxide 29 30 Anion Gap 7 8 BUN 8 8 Creatinine 0.47 L 0.56 L Estim Creat Clear Calc 167 142 Estimated GFR > 60 > 60 Glucose 97 101 Calcium 8.1 L 8.6 Total Bilirubin 0.5 0.6 AST 22 29 ALT 19 26 Alkaline Phosphatase 114 124 Total Protein 6.0 L 7.0 Albumin 2.6 L 2.9 L Quality VTE Prophylaxis VTE prophylaxis: mechanical ordered
[2024-05-29] MEDS: ONDANSETRON INJ 4 MG/2 ML VIAL IV PUSH ×2 (10:04→17:59)
[2024-05-29] MEDS: LORazepam (*CRX) 0.5 MG TABLET PO (13:55)
[2024-05-29] MEDS: SODIUM CHLORIDE 0.9% IV 1,000 ML 75 ML IV CONT (15:08)
[2024-05-29 16:17] LABS: Osmolality, Urine 299 mOsm/kg (50-1200)
[2024-05-30] VITALS (15 sets, daily range): BP systolic 110–122; BP diastolic 45–79; PULSE 84–100; RESP 16–20; TEMP 36.5–37.8; O2SAT 91–100
[2024-05-30] MEDS: HYDROcodone/acetaminophen (*CRX) 5-325 MG TABLET 1 TAB PO ×3 (01:02→17:36)
[2024-05-30] MEDS: IPRATROPIUM 0.5 MG/ALBUTEROL SULFATE 2.5 MG AMPUL.NEB 3 ML INHALATION ×4 (02:10→21:40)
--- NOTE | 2024-05-30 02:54 | PC.NURSE ---
PT REQUESTING PAIN MEDS BUT UPON ENTERING ROOM PT SLEEPING. WILL MONITOR
[2024-05-30] MEDS: HYDROmorphone HCL INJ (*CRX) 1 MG/ML SYR 0.5 MG IV PUSH ×4 (04:53→15:49)
[2024-05-30 06:02] LABS: Basophils Percent Auto 0.3 % (0.2-1.2); Eosinophils Absolute Auto 0.3 K/mm3 (0-0.3); Eosinophils Percent Auto 2.3 % (0-4.4); Hematocrit 32.2 % (37.0-47.0); Hemoglobin 10.3 g/dL (12.0-15.0); Immature Granulocyte Absolute 0.07 K/mm3 (0.00-0.031); Immature Granulocyte Percent A 0.6 % (0-0.5); Lymphocytes Absolute Auto 2.63 K/mm3 (0.9-3.2); Mean Corpuscular Hemoglobin 27.1 pg (26-34); Mean Corpuscular Volume 84.7 fl (80-100); Mean Platelet Volume 9.6 fl (7.4-10.4); Monocytes Absolute Auto 0.9 K/mm3 (0.1-0.6); Monocytes Percent Auto 7.4 % (2.6-8.5); Neutrophils Absolute Auto 8.1 K/mm3 (1.3-6.7); Neutrophils Percent Auto 67.4 % (45.5-73.1); Platelet Count Result 479 k/mm3 (150-375); Red Cell Distribution Width 13.3 % (11.5-14.5)
[2024-05-30 06:24] LABS: Alanine Aminotransferase 26 U/L (6-35); Albumin Level 2.9 g/dL (3.5-5.1); Alkaline Phosphatase 138 U/L (38-126); Anion Gap 10 mmol/L (4-12); Aspartate Amino Transferase 24 U/L (14-36); Bilirubin,Total 0.5 mg/dL (0.2-1.3); Blood Urea Nitrogen 6 mg/dL (7-17); Calcium 8.8 mg/dL (8.4-10.2); Carbon Dioxide 27 mmol/L (22-30); Chloride 99 mmol/L (98-107); Estimated CRCL calculation 152 ml/min; Estimated Glomerular Filt Rate > 60; Glucose 93 mg/dL (65-110); Potassium 4.1 mmol/L (3.4-5.0); Sodium 136 mmol/L (137-145)
--- NOTE | 2024-05-30 08:06 | P.PNIM_ITS ---
Progress Note: A&P Assessment and Plan (1) Sepsis: Code(s): A41.9 - Sepsis, unspecified organism Status: Acute Assessment and Plan: Meets SIRS criteria: febrile, leukocytosis, tachycardia - lactic acid: 1.1 - suspected source: Pneumonia - Antibiotics: levaquin and linezolid on 05/26, levaquin discontinued and meropenem started 05/30 per ID pharm - MRSA positive, mupirocin to the nares BID - blood cultures obtained on 05/26: final - MRSA with resistance to clindamycin, erythromycin, and oxacillin. - repeat blood cultures obtained on 05/29: pending - Echo ordered given gram + blood cultures to rule out endocarditis: LVEF 60- 65%, no evidence of endocarditis documented - Urinalysis nonconcerning for infection - CXR: Multilobar pneumonia, worst in the right middle and lower lobes. Probable minimal involvement of the right upper and left lower lobes. - Repeat CXR: Worsening airspace opacities in the right midlung zone with persistent opacity right lower lung zone consistent with worsening multifocal pneumonia. (2) Pneumonia: Qualifiers: Laterality: right Lung location: lower lobe of lung Pneumonia type: due to unspecified organism Qualified Code(s): J18.9 - Pneumonia, unspecified organism Code(s): J18.9 - Pneumonia, unspecified organism Status: Acute Assessment and Plan: CXR: Multilobar pneumonia, worst in the right middle and lower lobes. Probable minimal involvement of the right upper and left lower lobes. Possibly MRSA pneumonia as her MRSA nasal screen was positive. - Antibiotics: levaquin and linezolid on 05/26 - Viral PCR: positive for flu a - MRSA positive, mupirocin to the nares BID - legionella, mycoplasma and pneumococcal pending - sputum pending - blood cultures obtained on 05/26: final - MRSA with resistance to clindamycin, erythromycin, and oxacillin. - repeat blood cultures obtained on 05/29: pending - Echo ordered given gram + blood cultures to rule out endocarditis: LVEF 60- 65%, no evidence of endocarditis documented - no supplemental O2 requirement. Keep SpO2 greater than 88% - Monitor vital signs, I&Os, neuro status and patient is a fall risk - Follow WBC, serum electrolytes, temperature curves and cultures 05/30 Patient endorsing continued shortness of breath that has slightly worsened since yesterday. - WBC has increased - Repeat CXR: Worsening airspace opacities in the right midlung zone with persistent opacity right lower lung zone consistent with worsening multifocal pneumonia. - Discussed patient with ID pharm who recommends meropenem based on patients allergy list as this is less likely to have cross reactivity. Discussed this with patient and she is agreeable to start meropenem. Informed RN that the patient needs to be closely monitored when receiving this medication. (3) Influenza A: Code(s): J10.1 - Influenza due to other identified influenza virus with other respiratory manifestations Status: Acute Assessment and Plan: Viral panel: Flu A - Tamiflu started on 05/26 (4) Electrolyte abnormality: Code(s): E87.8 - Other disorders of electrolyte and fluid balance, not elsewhere classified Status: Acute Assessment and Plan: Na 129 and K 2.9 on admission. Received supplementation. Na 136 and K 4.1 on am labs Continue to monitor Resolved. 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 - TSH 0.015 - T4 3.45 Time Spent With Patient Time with patient: Greater than 35 minutes Subjective Date/time seen: 05/30/24 08:06 Interval history: 29 year old female smoker with history of depression, anxiety, and hyperthyroidism not currently on medication who presented to the emergency department via EMS with complaints of fever and cough. Patient endorsing continued shortness of breath that has slightly worsened since yesterday. She is endorsing pain to her right ribs. She denies chest pain, palpitations, nausea/vomiting and abdominal pain. WBC has increased and repeat Chest XR shows worsening multifocal pneumonia. Discussed patient with ID pharm who recommends meropenem based on patients allergy list as this is less likely to have cross reactivity. Discussed this with patient and she is agreeable to start meropenem. Informed RN that the patient needs to be closely monitored when receiving this medication. Review of Systems Review of Systems: All systems reviewed & are unremarkable except as noted in HPI and below Exam Narrative: AF HR 89 RR 16 SpO2 99 BP 110/45 General: female in no acute respiratory distress who is nontoxic appearing, sitting up in bed. HEENT: Normocephalic. Atraumatic. Extraocular movement intact. Sclera clear and anicteric. No facial asymmetry. Chest: Lungs are coarse to auscultation bilaterally. Speaking full sentences. No wheezes. CV: Heart was regular rate and rhythm. S1-S2. No murmurs, gallops, or rubs. Abd: Abdomen was soft. Nontender. Nondistended. Positive bowel sounds. No organomegaly or masses. Ext: No clubbing, cyanosis, or edema. 2+ DP pulses bilaterally. Neuro: Patient is alert and oriented x4. Speech is clear. Objective Data Vital Signs Vital Signs: Vital Signs - 24 hr 05/29/24 08:49 05/29/24 08:49 05/29/24 08:56 Temperature Pulse Rate 86 86 90 Respiratory Rate 20 20 20 Blood Pressure Pulse Oximetry 93 Oxygen Delivery Room Air 05/29/24 14:00 05/29/24 14:08 05/29/24 14:20 Temperature 98.7 F Pulse Rate 93 93 96 Respiratory Rate 16 20 20 Blood Pressure 117/58 L Pulse Oximetry 99 Oxygen Delivery 05/29/24 14:21 05/29/24 20:00 05/29/24 20:53 Temperature 100.1 F H 100.1 F H Pulse Rate 96 102 H 102 H Respiratory Rate 20 18 18 Blood Pressure 120/55 L 120/55 L Pulse Oximetry 98 99 99 Oxygen Delivery Room Air 05/29/24 21:22 05/29/24 21:23 05/29/24 21:28 Temperature Pulse Rate 100 98 100 Respiratory Rate 16 16 16 Blood Pressure Pulse Oximetry 100 Oxygen Delivery Room Air 05/30/24 00:00 05/30/24 02:10 05/30/24 02:25 Temperature 100.1 F H Pulse Rate 96 98 98 Respiratory Rate 20 18 18 Blood Pressure 121/57 L Pulse Oximetry 91 Oxygen Delivery 05/30/24 05:13 05/30/24 07:21 05/30/24 07:21 Temperature 98.1 F Pulse Rate 99 100 Respiratory Rate 18 18 Blood Pressure 112/79 Pulse Oximetry 98 96 Oxygen Delivery Room Air 05/30/24 07:50 Temperature Pulse Rate 98 Respiratory Rate 18 Blood Pressure Pulse Oximetry Oxygen Delivery Intake/Output Intake/Output: Intake & Output 05/27/24 05/28/24 05/29/24 05/30/24 23:59 23:59 23:59 23:59 Intake Total 2460 1048 1155 1400 Balance 2460 1048 1155 1400 Meds/Results Medications: Active Medications Generic Name Dose Route Start Last Admin Trade Name Freq PRN Reason Stop Dose Admin Acetaminophen 650 mg 05/26/24 08:47 05/26/24 15:19 Acetaminophen 325 Mg Tablet PO 650 mg Q4H PRN Administration Mild Pain (1-3) or Fever Hydrocodone Bitart/Acetaminophen 1 tab 05/26/24 18:16 05/30/24 01:02 Hydrocodone/Acetaminophen (*Crx) 5-325 Mg Tablet PO 1 tab Q6H PRN Administration Pain Rated 4-6 Albuterol/Ipratropium 3 ml 05/26/24 14:00 05/30/24 07:21 Ipratropium 0.5 Mg/Albuterol Sulfate 2.5 Mg Ampul.Neb 3 Ml INHALATION 3 ml Q6HRT DORY Administration Enoxaparin Sodium 40 mg 05/27/24 09:00 05/29/24 08:15 Enoxaparin 40 Mg/0.4 Ml Syringe SUB-Q 40 mg DAILY DORY Administration Guaifenesin 1,200 mg 05/26/24 21:00 05/29/24 20:33 Guaifenesin 12 Hr 600 Mg Tabcr PO 1,200 mg Q12HR DORY Administration Hydromorphone HCl 0.5 mg 05/26/24 22:47 05/30/24 04:53 Hydromorphone Hcl Inj (*Crx) 1 Mg/Ml Syr IV PUSH 0.5 mg Q3H PRN Administration Pain Rated 7-10 Levofloxacin 750 mg 05/27/24 09:00 05/29/24 08:14 Levofloxacin 750 Mg Tablet PO 750 mg DAILY DORY Administration Lidocaine 1 patch 05/28/24 09:00 05/29/24 08:15 Lidocaine 5% Patch TRANSDERM 1 patch DAILY DORY Administration Linezolid 600 mg 05/26/24 21:00 05/29/24 20:33 Linezolid 600 Mg Tablet PO 600 mg Q12HR DORY Administration Lorazepam 0.5 mg 05/26/24 14:23 05/29/24 13:55 Lorazepam (*Crx) 0.5 Mg Tablet PO 0.5 mg DAILY PRN Administration anxiety Mupirocin 1 applic 05/26/24 21:00 05/29/24 20:32 Mupirocin 2% Oint 22 Gm Tube EACH NARE 05/31/24 09:01 1 applic Q12HR DORY Administration Ondansetron HCl 4 mg 05/28/24 09:58 05/29/24 17:59 Ondansetron Inj 4 Mg/2 Ml Vial IV PUSH 4 mg Q6H PRN Administration Nausea And Vomiting Oseltamivir Phosphate 75 mg 05/26/24 09:00 05/29/24 20:33 Oseltamivir Phosphate 75 Mg Capsule PO 05/31/24 08:59 75 mg Q12HR DORY Administration Perflutren Lipid Microsphere 0 ml 05/29/24 08:38 Perflutren Lipid Microspheres 1.5 Ml Vial Diluted To 10 Ml Total Volume IV PUSH 06/01/24 08:39 ONCE PRN adequate visualization Protocol Radiology Results: ITS Impressions Chest X-Ray 05/29/24 14:39 IMPRESSION: 1. Worsening airspace opacities in the right midlung zone with persistent opacity right lower lung zone consistent with worsening multifocal pneumonia. Labs Labs: Laboratory Results - last 24 hr 05/26/24 05/30/24 13:31 05:19 WBC 12.0 H RBC 3.80 L Hgb 10.3 L Hct 32.2 L MCV 84.7 MCH 27.1 MCHC 32.0 RDW 13.3 Plt Count 479 H MPV 9.6 Immature Gran % (Auto) 0.6 H Neut % (Auto) 67.4 Lymph % (Auto) 22.0 [place] % (Auto) 7.4 Eos % (Auto) 2.3 Baso % (Auto) 0.3 Lymph # (Auto) 2.63 [place] # (Auto) 0.9 H Eos # (Auto) 0.3 Baso # (Auto) 0.0 Abs Immat Gran (auto) 0.07 H Absolute Neuts (auto) 8.1 H Absolute Nucleated RBC 0.000 Nucleated RBC % 0.0 Sodium 136 L Potassium 4.1 Chloride 99 Carbon Dioxide 27 Anion Gap 10 BUN 6 L Creatinine 0.52 L Estim Creat Clear Calc 152 Estimated GFR > 60 Glucose 93 Calcium 8.8 Total Bilirubin 0.5 AST 24 ALT 26 Alkaline Phosphatase 138 H Total Protein 7.0 Albumin 2.9 L Urine Osmolality 299 Quality VTE Prophylaxis VTE prophylaxis: mechanical ordered
[2024-05-30] MEDS: LINEZOLID 600 MG TABLET PO ×2 (08:25→20:17)
[2024-05-30] MEDS: levoFLOXacin 750 MG TABLET PO (08:25)
[2024-05-30] MEDS: guaiFENesin 12 HR 600 MG TABCR 1200 MG PO ×2 (08:25→20:17)
[2024-05-30] MEDS: OSELTAMIVIR PHOSPHATE 75 MG CAPSULE PO ×2 (08:25→20:17)
[2024-05-30] MEDS: ENOXAPARIN 40 MG/0.4 ML SYRINGE SUB-Q (08:26)
[2024-05-30] MEDS: LIDOCAINE 5% PATCH 1 PATCH TRANSDERM (08:26)
[2024-05-30] MEDS: MUPIROCIN 2% OINT 22 GM TUBE 1 APPLIC EACH NARE ×2 (08:32→20:19)
[2024-05-30] MEDS: ONDANSETRON INJ 4 MG/2 ML VIAL IV PUSH (08:41)
[2024-05-30 17:03] LABS: Pneumococcal Antigen Urine NOT DETECTED
[2024-05-30] MEDS: MEROPENEM 1 GM/NS 100 ML 1 GM/100 ML BAG IVPB ×2 (17:38→23:55)
[2024-05-30 18:28] LABS: Mycoplasma IgM Antibody Titer 350 U/mL
[2024-05-30] MEDS: KETOROLAC 15 MG/ML VIAL (*BKC) 10 MG IV PUSH (18:28)
[2024-05-31] VITALS (16 sets, daily range): BP systolic 108–118; BP diastolic 45–62; PULSE 77–103; RESP 14–20; TEMP 36.2–36.6; O2SAT 94–100
[2024-05-31] MEDS: KETOROLAC 15 MG/ML VIAL (*BKC) 10 MG IV PUSH ×4 (00:26→18:27)
[2024-05-31] MEDS: HYDROcodone/acetaminophen (*CRX) 5-325 MG TABLET 1 TAB PO ×3 (02:37→22:27)
[2024-05-31] MEDS: IPRATROPIUM 0.5 MG/ALBUTEROL SULFATE 2.5 MG AMPUL.NEB 3 ML INHALATION ×4 (03:39→19:50)
[2024-05-31 05:37] LABS: Basophils Percent Auto 0.3 % (0.2-1.2); Eosinophils Absolute Auto 0.3 K/mm3 (0-0.3); Eosinophils Percent Auto 3.8 % (0-4.4); Hematocrit 34.9 % (37.0-47.0); Hemoglobin 10.7 g/dL (12.0-15.0); Immature Granulocyte Absolute 0.06 K/mm3 (0.00-0.031); Immature Granulocyte Percent A 0.7 % (0-0.5); Lymphocytes Absolute Auto 2.37 K/mm3 (0.9-3.2); Lymphocytes Percent Auto 27.6 % (18.3-44.2); Mean Corpuscular HGB Conc 30.7 g/dl (32-36); Mean Corpuscular Hemoglobin 26.4 pg (26-34); Mean Corpuscular Volume 86.2 fl (80-100); Mean Platelet Volume 9.2 fl (7.4-10.4); Monocytes Absolute Auto 0.6 K/mm3 (0.1-0.6); Monocytes Percent Auto 6.6 % (2.6-8.5); Neutrophils Absolute Auto 5.2 K/mm3 (1.3-6.7); Platelet Count Result 534 k/mm3 (150-375); Red Blood Count 4.05 M/mm3 (4.2-5.4); Red Cell Distribution Width 13.1 % (11.5-14.5); White Blood Count 8.6 K/mm3 (4.5-10.0)
[2024-05-31 05:57] LABS: Alanine Aminotransferase 27 U/L (6-35); Alkaline Phosphatase 147 U/L (38-126); Anion Gap 10 mmol/L (4-12); Aspartate Amino Transferase 31 U/L (14-36); Bilirubin,Total 0.4 mg/dL (0.2-1.3); Blood Urea Nitrogen 7 mg/dL (7-17); Calcium 8.9 mg/dL (8.4-10.2); Carbon Dioxide 27 mmol/L (22-30); Chloride 100 mmol/L (98-107); Estimated CRCL calculation 138 ml/min; Estimated Glomerular Filt Rate > 60; Glucose 93 mg/dL (65-110); Potassium 4.3 mmol/L (3.4-5.0); Sodium 137 mmol/L (137-145)
--- NOTE | 2024-05-31 07:10 | P.PNIM_ITS ---
Progress Note: A&P Assessment and Plan (1) Sepsis: Code(s): A41.9 - Sepsis, unspecified organism Status: Acute Assessment and Plan: Meets SIRS criteria: febrile, leukocytosis, tachycardia - lactic acid: 1.1 - suspected source: Pneumonia - Antibiotics: levaquin and linezolid on 05/26, levaquin discontinued and meropenem started 05/30 per ID pharm - MRSA positive, mupirocin to the nares BID - blood cultures obtained on 05/26: final - MRSA with resistance to clindamycin, erythromycin, and oxacillin. - repeat blood cultures obtained on 05/29: pending - Echo ordered given gram + blood cultures to rule out endocarditis: LVEF 60- 65%, no evidence of endocarditis documented - Urinalysis nonconcerning for infection - CXR: Multilobar pneumonia, worst in the right middle and lower lobes. Probable minimal involvement of the right upper and left lower lobes. - Repeat CXR: Worsening airspace opacities in the right midlung zone with persistent opacity right lower lung zone consistent with worsening multifocal pneumonia. 05/31: Patient remains afebrile with stable vitals. WBC improved. (2) Pneumonia: Qualifiers: Laterality: right Lung location: lower lobe of lung Pneumonia type: due to unspecified organism Qualified Code(s): J18.9 - Pneumonia, unspecified organism Code(s): J18.9 - Pneumonia, unspecified organism Status: Acute Assessment and Plan: CXR: Multilobar pneumonia, worst in the right middle and lower lobes. Probable minimal involvement of the right upper and left lower lobes. Possibly MRSA pneumonia as her MRSA nasal screen was positive. - Antibiotics: levaquin and linezolid on 05/26 - Viral PCR: positive for flu a - MRSA positive, mupirocin to the nares BID - legionella, mycoplasma and pneumococcal pending - sputum pending - blood cultures obtained on 05/26: final - MRSA with resistance to clindamycin, erythromycin, and oxacillin. - repeat blood cultures obtained on 05/29: NGTD - Echo ordered given gram + blood cultures to rule out endocarditis: LVEF 60- 65%, no evidence of endocarditis documented - no supplemental O2 requirement. Keep SpO2 greater than 88% - Monitor vital signs, I&Os, neuro status and patient is a fall risk - Follow WBC, serum electrolytes, temperature curves and cultures 05/30 Patient endorsing continued shortness of breath that has slightly worsened since yesterday. - WBC has increased - Repeat CXR: Worsening airspace opacities in the right midlung zone with persistent opacity right lower lung zone consistent with worsening multifocal pneumonia. - Discussed patient with ID pharm who recommends meropenem based on patients allergy list as this is less likely to have cross reactivity. Discussed this with patient and she is agreeable to start meropenem. Informed RN that the patient needs to be closely monitored when receiving this medication. 05/31: - Vitals remain stable and WBC has returned to WNL. Remains on room air. (3) Influenza A: Code(s): J10.1 - Influenza due to other identified influenza virus with other respiratory manifestations Status: Acute Assessment and Plan: Viral panel: Flu A - Tamiflu started on 05/26, course completed on 05/31 (4) Electrolyte abnormality: Code(s): E87.8 - Other disorders of electrolyte and fluid balance, not elsewhere classified Status: Acute Assessment and Plan: Na 129 and K 2.9 on admission. Received supplementation. Na 137 and K 4.3 on am labs Continue to monitor Resolved. 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 - TSH 0.015 - T4 3.45 Time Spent With Patient Time with patient: 25 - 35 minutes Subjective Date/time seen: 05/31/24 07:10 Interval history: 29 year old female smoker with history of depression, anxiety, and hyperthyroidism not currently on medication who presented to the emergency department via EMS with complaints of fever and cough. Patient is pleasant lying in bed with family at bedside. She states that her shortness of breath and cough have improved today. She notes continues pain to the right ribs. She remains on room air and is using the IS and [place]. She has no other complaints denying chest pain, palpitations, nausea/vomiting and abdominal pain. Review of Systems Review of Systems: All systems reviewed & are unremarkable except as noted in HPI and below Exam Narrative: AF HR 100 RR 14 SpO2 100 BP 118/54 General: female in no acute respiratory distress who is nontoxic appearing, sitting up in bed. HEENT: Normocephalic. Atraumatic. Extraocular movement intact. Sclera clear and anicteric. No facial asymmetry. Chest: Lungs are coarse to auscultation bilaterally but improved from yesterday. Speaking full sentences. No wheezes. CV: Heart was regular rate and rhythm. S1-S2. No murmurs, gallops, or rubs. Abd: Abdomen was soft. Nontender. Nondistended. Positive bowel sounds. No organomegaly or masses. Ext: No clubbing, cyanosis, or edema. 2+ DP pulses bilaterally. Neuro: Patient is alert and oriented x4. Speech is clear. Objective Data Vital Signs Vital Signs: Vital Signs - 24 hr 05/30/24 07:21 05/30/24 07:21 05/30/24 07:50 Temperature Pulse Rate 100 98 Respiratory Rate 18 18 Blood Pressure Pulse Oximetry 96 Oxygen Delivery Room Air 05/30/24 08:30 05/30/24 13:20 05/30/24 14:00 Temperature 97.7 F Pulse Rate 84 89 Respiratory Rate 18 16 Blood Pressure 110/45 L Pulse Oximetry 96 99 Oxygen Delivery Room Air 05/30/24 14:22 05/30/24 17:34 05/30/24 20:00 Temperature 97.7 F 98.1 F Pulse Rate 89 93 Respiratory Rate 16 18 Blood Pressure 110/45 L 122/55 L 117/52 L Pulse Oximetry 99 100 Oxygen Delivery 05/30/24 21:31 05/30/24 21:40 05/30/24 21:51 Temperature 98.1 F Pulse Rate 93 88 84 Respiratory Rate 18 18 18 Blood Pressure 117/52 L Pulse Oximetry 100 Oxygen Delivery 05/31/24 00:00 05/31/24 03:39 05/31/24 03:47 Temperature 97.9 F Pulse Rate 92 84 84 Respiratory Rate 20 18 18 Blood Pressure 115/62 Pulse Oximetry 98 Oxygen Delivery 05/31/24 04:00 05/31/24 04:35 Temperature 97.8 F 97.8 F Pulse Rate 77 77 Respiratory Rate 18 18 Blood Pressure 113/60 113/60 Pulse Oximetry 99 99 Oxygen Delivery Intake/Output Intake/Output: Intake & Output 05/28/24 05/29/24 05/30/24 05/31/24 23:59 23:59 23:59 23:59 Intake Total 1044 1151 1979 640 Balance 1045 1150 1979 640 Meds/Results Medications: Active Medications Generic Name Dose Route Start Last Admin Trade Name Freq PRN Reason Stop Dose Admin Acetaminophen 650 mg 05/26/24 08:47 05/26/24 15:19 Acetaminophen 325 Mg Tablet PO 650 mg Q4H PRN Administration Mild Pain (1-3) or Fever Hydrocodone Bitart/Acetaminophen 1 tab 05/26/24 18:16 05/31/24 02:37 Hydrocodone/Acetaminophen (*Crx) 5-325 Mg Tablet PO 1 tab Q6H PRN Administration Pain Rated 4-6 Albuterol/Ipratropium 3 ml 05/26/24 14:00 05/31/24 03:39 Ipratropium 0.5 Mg/Albuterol Sulfate 2.5 Mg Ampul.Neb 3 Ml INHALATION 3 ml Q6HRT DORY Administration Enoxaparin Sodium 40 mg 05/27/24 09:00 05/30/24 08:26 Enoxaparin 40 Mg/0.4 Ml Syringe SUB-Q 40 mg DAILY DORY Administration Guaifenesin 1,200 mg 05/26/24 21:00 05/30/24 20:17 Guaifenesin 12 Hr 600 Mg Tabcr PO 1,200 mg Q12HR DORY Administration Meropenem 1 gm in 100 mls @ 200 mls/hr 05/30/24 16:00 05/31/24 00:31 IVPB Infused Q8H DORY Infusion Ketorolac Tromethamine 10 mg 05/30/24 16:15 05/31/24 00:26 Ketorolac 15 Mg/Ml Vial (*Bkc) IV PUSH 10 mg Q6H PRN Administration Pain Rated 7-10 Lidocaine 1 patch 05/28/24 09:00 05/30/24 08:26 Lidocaine 5% Patch TRANSDERM 1 patch DAILY DORY Administration Linezolid 600 mg 05/26/24 21:00 05/30/24 20:17 Linezolid 600 Mg Tablet PO 600 mg Q12HR DORY Administration Lorazepam 0.5 mg 05/26/24 14:23 05/29/24 13:55 Lorazepam (*Crx) 0.5 Mg Tablet PO 0.5 mg DAILY PRN Administration anxiety Mupirocin 1 applic 05/26/24 21:00 05/30/24 20:19 Mupirocin 2% Oint 22 Gm Tube EACH NARE 05/31/24 09:01 1 applic Q12HR DORY Administration Ondansetron HCl 4 mg 05/28/24 09:58 05/30/24 08:41 Ondansetron Inj 4 Mg/2 Ml Vial IV PUSH 4 mg Q6H PRN Administration Nausea And Vomiting Oseltamivir Phosphate 75 mg 05/26/24 09:00 05/30/24 20:17 Oseltamivir Phosphate 75 Mg Capsule PO 05/31/24 08:59 75 mg Q12HR DORY Administration Perflutren Lipid Microsphere 0 ml 05/29/24 08:38 Perflutren Lipid Microspheres 1.5 Ml Vial Diluted To 10 Ml Total Volume IV PUSH 06/01/24 08:39 ONCE PRN adequate visualization Protocol Radiology Results: ITS Impressions Chest X-Ray 05/29/24 14:39 IMPRESSION: 1. Worsening airspace opacities in the right midlung zone with persistent opacity right lower lung zone consistent with worsening multifocal pneumonia. Labs Labs: Laboratory Results - last 24 hr 05/26/24 05/26/24 05/31/24 13:31 14:02 05:05 WBC 8.6 RBC 4.05 L Hgb 10.7 L Hct 34.9 L MCV 86.2 MCH 26.4 MCHC 30.7 L RDW 13.1 Plt Count 534 H MPV 9.2 Immature Gran % (Auto) 0.7 H Neut % (Auto) 61.0 Lymph % (Auto) 27.6 [place] % (Auto) 6.6 Eos % (Auto) 3.8 Baso % (Auto) 0.3 Lymph # (Auto) 2.37 [place] # (Auto) 0.6 Eos # (Auto) 0.3 Baso # (Auto) 0.0 Abs Immat Gran (auto) 0.06 H Absolute Neuts (auto) 5.2 Absolute Nucleated RBC 0.000 Nucleated RBC % 0.0 Sodium 137 Potassium 4.3 Chloride 100 Carbon Dioxide 27 Anion Gap 10 BUN 7 Creatinine 0.59 L Estim Creat Clear Calc 138 Estimated GFR > 60 Glucose 93 Calcium 8.9 Total Bilirubin 0.4 AST 31 ALT 27 Alkaline Phosphatase 147 H Total Protein 7.0 Albumin 3.0 L Mycoplasma pneumon IgM 350 Urine Pneumococcal Ag Not detected Quality VTE Prophylaxis VTE prophylaxis: mechanical ordered
[2024-05-31] MEDS: LINEZOLID 600 MG TABLET PO ×2 (09:15→20:48)
[2024-05-31] MEDS: guaiFENesin 12 HR 600 MG TABCR 1200 MG PO ×2 (09:15→20:48)
[2024-05-31] MEDS: LIDOCAINE 5% PATCH 1 PATCH TRANSDERM (09:15)
[2024-05-31] MEDS: ENOXAPARIN 40 MG/0.4 ML SYRINGE SUB-Q (09:16)
[2024-05-31] MEDS: MEROPENEM 1 GM/NS 100 ML 1 GM/100 ML BAG IVPB ×2 (09:16→15:52)
[2024-05-31] MEDS: MUPIROCIN 2% OINT 22 GM TUBE 1 APPLIC EACH NARE (09:18)
[2024-05-31] MEDS: LORazepam (*CRX) 0.5 MG TABLET PO (20:48)
[2024-06-01] VITALS (12 sets, daily range): BP systolic 104–123; BP diastolic 48–60; PULSE 84–111; RESP 14–21; TEMP 36.3–37.1; O2SAT 93–100
[2024-06-01] MEDS: MEROPENEM 1 GM/NS 100 ML 1 GM/100 ML BAG IVPB ×4 (00:34→23:58)
[2024-06-01] MEDS: KETOROLAC 15 MG/ML VIAL (*BKC) 10 MG IV PUSH ×2 (00:37→07:04)
[2024-06-01] MEDS: IPRATROPIUM 0.5 MG/ALBUTEROL SULFATE 2.5 MG AMPUL.NEB 3 ML INHALATION ×4 (02:51→19:20)
[2024-06-01 05:28] LABS: Hematocrit 34.2 % (37.0-47.0); Hemoglobin 10.1 g/dL (12.0-15.0); Mean Corpuscular HGB Conc 29.5 g/dl (32-36); Mean Corpuscular Hemoglobin 26.8 pg (26-34); Mean Corpuscular Volume 90.7 fl (80-100); Mean Platelet Volume 9.2 fl (7.4-10.4); Platelet Count Result 451 k/mm3 (150-375); Red Blood Count 3.77 M/mm3 (4.2-5.4); Red Cell Distribution Width 13.2 % (11.5-14.5); White Blood Count 7.9 K/mm3 (4.5-10.0)
[2024-06-01 05:36] LABS: Alanine Aminotransferase 27 U/L (6-35); Albumin Level 2.6 g/dL (3.5-5.1); Alkaline Phosphatase 121 U/L (38-126); Anion Gap 6 mmol/L (4-12); Aspartate Amino Transferase 30 U/L (14-36); Bilirubin,Total 0.3 mg/dL (0.2-1.3); Blood Urea Nitrogen 7 mg/dL (7-17); Calcium 8.4 mg/dL (8.4-10.2); Carbon Dioxide 24 mmol/L (22-30); Chloride 107 mmol/L (98-107); Estimated CRCL calculation 150 ml/min; Estimated Glomerular Filt Rate > 60; Glucose 88 mg/dL (65-110); Potassium 4.5 mmol/L (3.4-5.0); Sodium 137 mmol/L (137-145)
[2024-06-01 05:55] LABS: Anisocytosis 1+; Band Neutrophils Percent 1 % (0-6); Burr Cells 1+; Lymphocytes Absolute Manual 1.97 K/mm3 (1.1-4.5); Monocytes Absolute Manual 0.23 K/mm3 (0.1-0.90); Monocytes Percent Manual 3 % (3-9); Neutrophils Absolute Manual 5.68 K/mm3 (1.7-7.2); Neutrophils Percent Manual 71 % (46-73); Platelet Estimate Increased (Adequate); Schistocytes None Seen; Smudge Cells PRESENT; Total Cells Counted 100
--- NOTE | 2024-06-01 08:20 | P.PNIM_ITS ---
Progress Note: A&P Assessment and Plan (1) Sepsis: Code(s): A41.9 - Sepsis, unspecified organism Status: Acute Assessment and Plan: Meets SIRS criteria: febrile, leukocytosis, tachycardia - lactic acid: 1.1 - suspected source: Pneumonia - Antibiotics: levaquin and linezolid on 05/26, Levaquin discontinued and meropenem started 05/30 per ID pharm - MRSA positive, mupirocin to the nares BID - blood cultures obtained on 05/26: final - MRSA and staph auricularis with resistance to clindamycin, erythromycin, and oxacillin. - repeat blood cultures obtained on 05/29: NGTD - Echo ordered given gram + blood cultures to rule out endocarditis: LVEF 60- 65%, no evidence of endocarditis documented - Urinalysis nonconcerning for infection - CXR: Multilobar pneumonia, worst in the right middle and lower lobes. Probable minimal involvement of the right upper and left lower lobes. - Repeat CXR: Worsening airspace opacities in the right midlung zone with persistent opacity right lower lung zone consistent with worsening multifocal pneumonia. 06/01: Patient remains afebrile with stable vitals. WBC improved. (2) Pneumonia: Qualifiers: Laterality: right Lung location: lower lobe of lung Pneumonia type: due to unspecified organism Qualified Code(s): J18.9 - Pneumonia, unspecified organism Code(s): J18.9 - Pneumonia, unspecified organism Status: Acute Assessment and Plan: CXR: Multilobar pneumonia, worst in the right middle and lower lobes. Probable minimal involvement of the right upper and left lower lobes. Possibly MRSA pneumonia as her MRSA nasal screen was positive. - Antibiotics: levaquin and linezolid on 05/26 - Viral PCR: positive for flu a - MRSA positive, mupirocin to the nares BID - legionella, mycoplasma and pneumococcal pending - sputum cutlrue: gram positive cocci present - blood cultures obtained on 05/26: final - MRSA with resistance to clindamycin, erythromycin, and oxacillin. - repeat blood cultures obtained on 05/29: NGTD - Echo ordered given gram + blood cultures to rule out endocarditis: LVEF 60- 65%, no evidence of endocarditis documented - no supplemental O2 requirement. Keep SpO2 greater than 88% - Monitor vital signs, I&Os, neuro status and patient is a fall risk - Follow WBC, serum electrolytes, temperature curves and cultures 05/30 Patient endorsing continued shortness of breath that has slightly worsened since yesterday. - WBC has increased - Repeat CXR: Worsening airspace opacities in the right midlung zone with persistent opacity right lower lung zone consistent with worsening multifocal pneumonia. - Discussed patient with ID pharm who recommends meropenem based on patients allergy list as this is less likely to have cross reactivity. Discussed this with patient and she is agreeable to start meropenem. Informed RN that the patient needs to be closely monitored when receiving this medication. 06/01: - Vitals remain stable and WBC has returned to WNL. Remains on room air. Shortness of breath and cough improving. (3) Influenza A: Code(s): J10.1 - Influenza due to other identified influenza virus with other respiratory manifestations Status: Acute Assessment and Plan: Viral panel: Flu A - Tamiflu started on 05/26, course completed on 05/31 (4) Electrolyte abnormality: Code(s): E87.8 - Other disorders of electrolyte and fluid balance, not elsewhere classified Status: Acute Assessment and Plan: Na 129 and K 2.9 on admission. Received supplementation. Na 137 and K 4.5 on am labs Continue to monitor Resolved. 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 - TSH 0.015 - T4 3.45 Time Spent With Patient Time with patient: 25 - 35 minutes Subjective Date/time seen: 06/01/24 08:20 Interval history: 29 year old female smoker with history of depression, anxiety, and hyperthyroidism not currently on medication who presented to the emergency department via EMS with complaints of fever and cough. Patient is pleasant sitting up in bed. She states that she is feeling better today and notes improvement to her shortness of breath and cough. She continues to endorse pain to her right ribs and has been requiring IV pain medication. Discussed with patient that we will stop the IV pain medications in hopes of being able to discharge soon. She states understanding and will be treated with oral analgesics. She has no other complaints denying chest pain, palpitations, nausea/vomiting and abdominal pain. Review of Systems Review of Systems: All systems reviewed & are unremarkable except as noted in HPI and below Exam Narrative: AF HR 84 RR 20 Spo2 93 BP 106/54 General: female in no acute respiratory distress who is nontoxic appearing, sitting up in bed. HEENT: Normocephalic. Atraumatic. Extraocular movement intact. Sclera clear and anicteric. No facial asymmetry. Chest: Lungs are diminished to auscultation bilaterally. Speaking full sentences. No wheezes. CV: Heart was regular rate and rhythm. S1-S2. No murmurs, gallops, or rubs. Abd: Abdomen was soft. Nontender. Nondistended. Positive bowel sounds. No organomegaly or masses. Ext: No clubbing, cyanosis, or edema. 2+ DP pulses bilaterally. Neuro: Patient is alert and oriented x4. Speech is clear. Objective Data Vital Signs Vital Signs: Vital Signs - 24 hr 05/31/24 09:15 05/31/24 12:00 05/31/24 13:22 Temperature 97.4 F L Pulse Rate 100 94 Respiratory Rate 14 18 Blood Pressure 118/54 L Pulse Oximetry 100 Oxygen Delivery Room Air 05/31/24 13:30 05/31/24 14:00 05/31/24 16:00 Temperature 97.4 F L 97.2 F L Pulse Rate 92 100 87 Respiratory Rate 18 14 14 Blood Pressure 118/54 L 108/45 L Pulse Oximetry 100 99 Oxygen Delivery 05/31/24 19:52 05/31/24 19:52 05/31/24 20:00 Temperature 97.6 F Pulse Rate 93 98 Respiratory Rate 20 16 Blood Pressure 111/48 L Pulse Oximetry 99 100 Oxygen Delivery Room Air 05/31/24 20:02 05/31/24 20:48 06/01/24 00:00 Temperature 98.1 F Pulse Rate 96 93 Respiratory Rate 16 20 Blood Pressure 104/48 L Pulse Oximetry 97 Oxygen Delivery Room Air 06/01/24 02:51 06/01/24 03:00 06/01/24 04:00 Temperature 98.1 F Pulse Rate 93 93 88 Respiratory Rate 16 16 20 Blood Pressure 122/60 Pulse Oximetry 100 Oxygen Delivery 06/01/24 08:07 06/01/24 08:07 Temperature Pulse Rate 91 Respiratory Rate 20 Blood Pressure Pulse Oximetry 93 Oxygen Delivery Room Air Intake/Output Intake/Output: Intake & Output 05/29/24 05/30/24 05/31/24 06/01/24 23:59 23:59 23:59 23:59 Intake Total 1155 1979 2039 450 Balance 1155 1979 2039 450 Meds/Results Medications: Active Medications Generic Name Dose Route Start Last Admin Trade Name Freq PRN Reason Stop Dose Admin Acetaminophen 650 mg 05/26/24 08:47 05/26/24 15:19 Acetaminophen 325 Mg Tablet PO 650 mg Q4H PRN Administration Mild Pain (1-3) or Fever Hydrocodone Bitart/Acetaminophen 1 tab 05/26/24 18:16 05/31/24 22:27 Hydrocodone/Acetaminophen (*Crx) 5-325 Mg Tablet PO 1 tab Q6H PRN Administration Pain Rated 4-6 Albuterol/Ipratropium 3 ml 05/26/24 14:00 06/01/24 08:06 Ipratropium 0.5 Mg/Albuterol Sulfate 2.5 Mg Ampul.Neb 3 Ml INHALATION 3 ml Q6HRT DORY Administration Enoxaparin Sodium 40 mg 05/27/24 09:00 05/31/24 09:16 Enoxaparin 40 Mg/0.4 Ml Syringe SUB-Q 40 mg DAILY DORY Administration Guaifenesin 1,200 mg 05/26/24 21:00 05/31/24 20:48 Guaifenesin 12 Hr 600 Mg Tabcr PO 1,200 mg Q12HR DORY Administration Meropenem 1 gm in 100 mls @ 200 mls/hr 05/30/24 16:00 06/01/24 01:04 IVPB Infused Q8H DORY Infusion Lidocaine 1 patch 05/28/24 09:00 05/31/24 09:15 Lidocaine 5% Patch TRANSDERM 1 patch DAILY DORY Administration Linezolid 600 mg 05/26/24 21:00 05/31/24 20:48 Linezolid 600 Mg Tablet PO 600 mg Q12HR DORY Administration Lorazepam 0.5 mg 05/26/24 14:23 05/31/24 20:48 Lorazepam (*Crx) 0.5 Mg Tablet PO 0.5 mg DAILY PRN Administration anxiety Ondansetron HCl 4 mg 05/28/24 09:58 05/30/24 08:41 Ondansetron Inj 4 Mg/2 Ml Vial IV PUSH 4 mg Q6H PRN Administration Nausea And Vomiting Perflutren Lipid Microsphere 0 ml 05/29/24 08:38 Perflutren Lipid Microspheres 1.5 Ml Vial Diluted To 10 Ml Total Volume IV PUSH 06/01/24 08:39 ONCE PRN adequate visualization Protocol Radiology Results: ITS Impressions Chest X-Ray 05/29/24 14:39 IMPRESSION: 1. Worsening airspace opacities in the right midlung zone with persistent opacity right lower lung zone consistent with worsening multifocal pneumonia. Labs Labs: Laboratory Results - last 24 hr 05/26/24 06/01/24 06/01/24 14:02 04:41 04:45 WBC 7.9 RBC 3.77 L Hgb 10.1 L Hct 34.2 L MCV 90.7 D MCH 26.8 MCHC 29.5 L RDW 13.2 Plt Count 451 H MPV 9.2 Immature Gran % (Auto) Not Reportable Neut % (Auto) Not Reportable Lymph % (Auto) Not Reportable [place] % (Auto) Not Reportable Eos % (Auto) Not Reportable Baso % (Auto) Not Reportable Lymph # (Auto) Not Reportable [place] # (Auto) Not Reportable Eos # (Auto) Not Reportable Baso # (Auto) Not Reportable Abs Immat Gran (auto) Not Reportable Absolute Neuts (auto) Not Reportable Absolute Nucleated RBC Not Reportable Total Counted 100 Neutrophils % (Manual) 71 Band Neutrophils % 1 Lymphocytes % (Manual) 25.0 Monocytes % (Manual) 3 Nucleated RBC % Not Reportable Abs Neuts (Manual) 5.68 Abs Lymphs (Manual) 1.97 Abs Monocytes (Manual) 0.23 Smudge Cells Present Platelet Estimate Increased Anisocytosis 1+ [place] Cells 1+ Schistocytes None seen Sodium 137 Potassium 4.5 Chloride 107 Carbon Dioxide 24 Anion Gap 6 BUN 7 Creatinine 0.54 L Estim Creat Clear Calc 150 Estimated GFR > 60 Glucose 88 Serum Osmolality 275 L Calcium 8.4 Total Bilirubin 0.3 AST 30 ALT 27 Alkaline Phosphatase 121 Total Protein 6.0 L Albumin 2.6 L Quality VTE Prophylaxis VTE prophylaxis: mechanical ordered
[2024-06-01] MEDS: LINEZOLID 600 MG TABLET PO ×2 (09:10→20:45)
[2024-06-01] MEDS: guaiFENesin 12 HR 600 MG TABCR 1200 MG PO ×2 (09:10→20:45)
[2024-06-01] MEDS: ENOXAPARIN 40 MG/0.4 ML SYRINGE SUB-Q (09:11)
[2024-06-01] MEDS: HYDROcodone/acetaminophen (*CRX) 5-325 MG TABLET 1 TAB PO ×2 (12:15→19:37)
[2024-06-01] MEDS: LORazepam (*CRX) 0.5 MG TABLET PO (19:37)
[2024-06-02] VITALS (8 sets, daily range): BP systolic 114–126; BP diastolic 51–60; PULSE 78–100; RESP 16–20; TEMP 36.3–36.6; O2SAT 96–100
[2024-06-02] MEDS: HYDROcodone/acetaminophen (*CRX) 5-325 MG TABLET 1 TAB PO ×2 (01:21→08:27)
[2024-06-02] MEDS: IPRATROPIUM 0.5 MG/ALBUTEROL SULFATE 2.5 MG AMPUL.NEB 3 ML INHALATION ×2 (03:15→07:48)
[2024-06-02 05:56] LABS: Basophils Percent Auto 0.3 % (0.2-1.2); Eosinophils Absolute Auto 0.4 K/mm3 (0-0.3); Eosinophils Percent Auto 4.1 % (0-4.4); Hematocrit 33.1 % (37.0-47.0); Hemoglobin 10.1 g/dL (12.0-15.0); Immature Granulocyte Absolute 0.07 K/mm3 (0.00-0.031); Immature Granulocyte Percent A 0.8 % (0-0.5); Lymphocytes Absolute Auto 3.04 K/mm3 (0.9-3.2); Lymphocytes Percent Auto 34.3 % (18.3-44.2); Mean Corpuscular HGB Conc 30.5 g/dl (32-36); Mean Corpuscular Hemoglobin 26.2 pg (26-34); Mean Platelet Volume 8.5 fl (7.4-10.4); Monocytes Absolute Auto 0.5 K/mm3 (0.1-0.6); Monocytes Percent Auto 5.9 % (2.6-8.5); Neutrophils Absolute Auto 4.9 K/mm3 (1.3-6.7); Neutrophils Percent Auto 54.6 % (45.5-73.1); Platelet Count Result 529 k/mm3 (150-375); Red Blood Count 3.85 M/mm3 (4.2-5.4); Red Cell Distribution Width 13.3 % (11.5-14.5); White Blood Count 8.9 K/mm3 (4.5-10.0)
[2024-06-02 06:07] LABS: Alanine Aminotransferase 30 U/L (6-35); Albumin Level 2.8 g/dL (3.5-5.1); Alkaline Phosphatase 125 U/L (38-126); Anion Gap 7 mmol/L (4-12); Aspartate Amino Transferase 33 U/L (14-36); Bilirubin,Total 0.2 mg/dL (0.2-1.3); Blood Urea Nitrogen 6 mg/dL (7-17); Calcium 8.6 mg/dL (8.4-10.2); Carbon Dioxide 26 mmol/L (22-30); Chloride 105 mmol/L (98-107); Estimated CRCL calculation 164 ml/min; Estimated Glomerular Filt Rate > 60; Glucose 87 mg/dL (65-110); Potassium 4.3 mmol/L (3.4-5.0); Sodium 138 mmol/L (137-145)
[2024-06-02] MEDS: guaiFENesin 12 HR 600 MG TABCR 1200 MG PO (08:27)
[2024-06-02] MEDS: LINEZOLID 600 MG TABLET PO (08:27)
[2024-06-02] MEDS: ENOXAPARIN 40 MG/0.4 ML SYRINGE SUB-Q (08:28)
[2024-06-02] MEDS: MEROPENEM 1 GM/NS 100 ML 1 GM/100 ML BAG IVPB (08:28)
[2024-06-02] MEDS: LIDOCAINE 5% PATCH 1 PATCH TRANSDERM (08:28)
--- NOTE | 2024-06-02 13:12 | P.DS_ITS ---
DS: Admitting Diagnosis Discharge Date 06/02/2024 Admitting Diagnosis sepsis pneumonia Influenza a electrolyte abnormality MRSA nasal colonization hyper thyroidism DS: Discharge Diagnosis Discharge Diagnosis (1) Sepsis: Code(s): A41.9 - Sepsis, unspecified organism Status: Acute (2) Pneumonia: Qualifiers: Laterality: right Lung location: lower lobe of lung Pneumonia type: due to unspecified organism Qualified Code(s): J18.9 - Pneumonia, unspecified organism Code(s): J18.9 - Pneumonia, unspecified organism Status: Acute (3) Influenza A: Code(s): J10.1 - Influenza due to other identified influenza virus with other respiratory manifestations Status: Acute (4) Electrolyte abnormality: Code(s): E87.8 - Other disorders of electrolyte and fluid balance, not elsewhere classified Status: Acute (5) MRSA nasal colonization: Code(s): Z22.322 - Carrier or suspected carrier of Methicillin resistant Staphylococcus aureus Status: Acute (6) Hyperthyroidism: Code(s): E05.90 - Thyrotoxicosis, unspecified without thyrotoxic crisis or storm Status: Acute DS: Summary Hospital Course Reason for hospitalization: sepsis pneumonia Influenza a electrolyte abnormality MRSA nasal colonization hyper thyroidism Hospital Course: 29 year old female smoker with history of depression, anxiety, and hyperthyroidism not currently on medication who presented to the emergency department via EMS with complaints of fever and cough. Patient meeting SIRs criteria on admission with a fever, leukocytosis, and tachycardia. She was noted to be hyponatremic and hypokalemic on admission, which resolved during inpatient stay. Chest XR obtained and showed multilobar pneumonia, worst in the right middle and lower lobes. Probable minimal involvement of the right upper and left lower lobes. MRSA nares positive. Viral panel positive for flu, completed tamiflu course inpatient. Given sepsis bolus and blood cultures obtained. Patient started on IV antibiotics. Blood cultures grew MRSA. Echo obtained and no evidence of endocarditis noted. Repeat chest XR showed worsening airspace opacities in the right midlung zone with persistent opacity right lower lung zone consistent with worsening multifocal pneumonia. Repeat blood cultures were NGTD x5 days. Given worsening infection as seen on imaging and an increased WBC at that point, antibiotics were adjusted per ID pharmacy. Patients WBC returned to normal and symptoms resolved, patient transitioned to oral antibiotics. At time of discharge patient had no complaints denying Chest pain, shortness breast, palpitations, nausea /vomiting, and abdominal pain. Patient discharged home with family in a stable condition. She is to continue her antibiotics as prescribed and follow-up with her primary care provider in 1 week. Status at Discharge Functional status at discharge: independent ambulation Time Spent with Patient Time attestation: Total time spent providing and/or coordinating discharge services: Time spent: Greater than 30 minutes Exam Narrative: AF HR 78 RR 16 SpO2 100 BP 114/54 General: female in no acute respiratory distress who is nontoxic appearing, sitting up in bed. HEENT: Normocephalic. Atraumatic. Extraocular movement intact. Sclera clear and anicteric. No facial asymmetry. Chest: Lungs are clear to auscultation bilaterally. Speaking full sentences. No wheezes. CV: Heart was regular rate and rhythm. S1-S2. No murmurs, gallops, or rubs. Abd: Abdomen was soft. Nontender. Nondistended. Positive bowel sounds. Ext: No clubbing, cyanosis, or edema. 2+ DP pulses bilaterally. Neuro: Patient is alert and oriented x4. Speech is clear. DS: Data Data Completed and Pending Completed studies during hospitalization: Chest XR Chest XR Labs on day of discharge: Labs from last 24 hours 06/02/24 05:22 WBC 8.9 RBC 3.85 L Hgb 10.1 L Hct 33.1 L MCV 86.0 D MCH 26.2 MCHC 30.5 L RDW 13.3 Plt Count 529 H MPV 8.5 Immature Gran % (Auto) 0.8 H Neut % (Auto) 54.6 Lymph % (Auto) 34.3 [place] % (Auto) 5.9 Eos % (Auto) 4.1 Baso % (Auto) 0.3 Lymph # (Auto) 3.04 [place] # (Auto) 0.5 Eos # (Auto) 0.4 H Baso # (Auto) 0.0 Abs Immat Gran (auto) 0.07 H Absolute Neuts (auto) 4.9 Absolute Nucleated RBC 0.000 Nucleated RBC % 0.0 Sodium 138 Potassium 4.3 Chloride 105 Carbon Dioxide 26 Anion Gap 7 BUN 6 L Creatinine 0.49 L Estim Creat Clear Calc 164 Estimated GFR > 60 Glucose 87 Calcium 8.6 Total Bilirubin 0.2 AST 33 ALT 30 Alkaline Phosphatase 125 Total Protein 6.0 L Albumin 2.8 L Preliminary micro results at discharge 05/29/24 10:19 Blood Culture - Preliminary Blood 05/29/24 09:30 Blood Culture - Preliminary Blood Discharge Plan Discharge Attending physician on discharge: Hank Jewell Discharging Clinician: Casandra Stanley Anticipated Discharge Date/Time: 06/02/24 12:31 Patient Disposition: Home, Self-Care Activity: as tolerated Diet: as tolerated and regular Discharge Instructions: Discharge disposition: Patient admitted to the hospital for cocurrent flu and pneumonia with bacteremia Completed tamiflu during admission Take medications as prescribed even if feeling better Linezolid twice a day starting tonight, course to be completed on 06/11 Levaquin once daily starting tonight, course to be completed 06/05 Attached is information on these medications Take caution while standing, rising, or moving Change positions slowly taking a break between each position change If you standing feel dizzy sit back down and take a break Encouraged to continue with yearly vaccinations Return to the emergency department if he developed sudden shortness of breath, chest pain, nausea, vomiting, upset stomach or intractable diarrhea Return to the emergency department if you develop fever greater than 101.5 Follow-up with the primary care physician within 1-2 weeks Thank you for choosing [facility] for your healthcare needs Patient Instructions: Antibiotic Form, Levofloxacin (By mouth), Linezolid (By mouth), MRSA (Methicillin-Resistant Staphylococcus Aureus) (DC), Pain Management (DC), Influenza (DC), Bacterial Pneumonia (DC) Patient Language: Cameroonian Stand Alone Forms: General Discharge Information Follow-up/Referrals: Damico,Hamlet J., MD [Physician] - 1 Week Discharge Medications: New linezolid 600 mg Tablet 600 mg PO Q12HR Qty: 19 0RF levofloxacin 750 mg tablet 750 mg PO DAILY Qty: 4 0RF Continued lorazepam 0.5 mg tablet 0.5 mg PO DAILY PRN (Reason: anxiety) albuterol sulfate [Ventolin HFA] 90 mcg/actuation HFA aerosol inhaler 2 puff inhalation QID PRN (Reason: shortness of breath or wheezing) Qty: 8.5 0RF Date of admission: 05/28/24 10:38 Primary Care Provider: UNKNOWN,DOCTOR Admitting Provider: Sudarshan Ibanez Attending physician on admission: Casandra Stanley Condition: Stable Hospitalist MIPS Heart Failure (Exclusion) Patient has history of Heart Transplant or Left Ventricular Assistive Device?: No IF YES, STOP HERE Heart Failure (Qualifier) Patient has current or prior documentation of LVEF less than or equal to 40%, or mod/servere depressed LVSF?: No IF NO, STOP HERE
[2024-06-03 17:44] LABS: Legionella pneumophila Ag Ur NOT DETECTED
== END 2024-06-02 14:15 | disposition home or self-care (01) | DRG 720 ==
LOC: ANHED 08:59 → ANH3MEDSUR 10:08 → ANH2MED 11:44
PROVIDERS: Emergency Medicine; Physician Assistant; Admitting Provider General Practice; Emergency Provider Family Medicine; Visit Provider Student in an Organized Health Care Education/Training Program
DX: A41.89 Other specified sepsis (principal); J11.00 Influenza due to unidentified influenza virus with unspecified type of pneumonia; J15.212 Pneumonia due to Methicillin resistant Staphylococcus aureus; E05.90 Thyrotoxicosis, unspecified without thyrotoxic crisis or storm; E87.6 Hypokalemia; E87.1 Hypo-osmolality and hyponatremia; F17.210 Nicotine dependence, cigarettes, uncomplicated; F32.A Depression, unspecified; F41.9 Anxiety disorder, unspecified; Z88.0 Allergy status to penicillin; Z90.49 Acquired absence of other specified parts of digestive tract; Z28.21 Immunization not carried out because of patient refusal; Z20.822 Contact with and (suspected) exposure to COVID-19
CPT/HCPCS: 36415; 71045; 71046; 80048; 80053; 81001; 82570; 83605; 83735; 83930; 83935; 84145; 84300; 84439; 84443; 85025; 86738; 87040; 87070; 87181; 87205; 87449; 87637; 87641; 87899; 93306; 94640; 94667; 96365; 96366; 96372; 96374; 96375; 96376; 99285; A9270; G0378; G0379; J1171; J1650; J1885; J1956; J2060; J2185; J2270; J2405; J3370; J7030

== ENCOUNTER 2024-07-17 15:19 | Emergency (ER) | payer OTHER, SELFPAY ==
--- NOTE | ~2024-07-17 | XR_ITS ---
XR chest 1V portable Ordering provider: Jackson Irby MD History: 29 years Female with . Fever/Cough . Comparison: May 29, 2024 FINDINGS: MEDIASTINUM: The cardiac silhouette is not enlarged. LUNGS: No infiltrates, effusions or pneumothorax. Prominent bronchovascular markings in the lower lob es with interstitial thickening which may indicate early or resolving pneumonia. Follow-up advised. OTHER: No free air under the diaphragm. IMPRESSION: Prominent bronchovascular markings in the lower lobes with interstitial thickening which may indicate early or resolving pneumonia. Reviewed, dictated and finalized at location A. IMPRESSION: Prominent bronchovascular markings in the lower lobes with interstitial thicken ing which may indicate early or resolving pneumonia.
[2024-07-17 15:21] VITALS: BP 131/76; PULSE 95; RESP 18; TEMP 36.2; O2SAT 96
--- OUTSIDE RECORDS SUMMARY | 2024-07-17 16:13 | XMS_ITS | Clinical Summary ---
Author Organization [facility] [employer] Address [address] [place] [address] Care Team Providers Care Knitting Machine Fixer Name Role Phone Unavailable Primary Care Provider Unavailabl e Source Comments [facility],non-owned Affiliates and Associated Physician Practices is amultiple site organization consisting of ambulatory clinics and hospital sitesin [place], [place], [place] and [place]. This disclosure is being madepursuant to the Care Everywhere program and may not contain all information available regarding this patient. Last updated 18.[facility] [employer] Active Problems Patient Care Coordination No te [...] Sex Assigned at Female 06/03/2023 1:35 PM MEDICAL OFFICE TECHNOLOGIST Gender Identity Female 06/03/2023 1:35 PM MEDICAL OFFICE TECHNOLOGIST Sexual Orientation Straight 06/03/2023 1: 35 PM MEDICAL OFFICE TECHNOLOGIST Plan of Treatment Health Maintenance Due Date Last Done Comments HIV SCREENING 2009 HEPATITIS C SCREENING 05/23/2012 [...] to complete this topic MENINGOCOCCAL (Group B) VACC INE SHARED DECISION-MAKING Aged Out No longer eligibl e based on patient's age to complete this topic MENINGOCOCCAL GROUPS A/C/Y/W VACCINE Aged Out No longer eligible b ased on patient's age to complete this topic PNEUMOCOCCAL VACCINE Aged Out No long er eligible based on patient's age to complete this topic
--- OUTSIDE RECORDS SUMMARY | 2024-07-17 16:13 | XMS_ITS | Referral Summary ---
Author Organization [facility] Address [address] [place] [address] Care Team Providers Care Report Specialist Name Role Phone Gomez Aceves MD Primary Care Provider [phone] Madelnie Kim NP Unavailable [phone] Allergies Active Allergy Reactions Criticality Noted Date Comments Codeine Edema,Hives Medium 02/20/2020 Ibuprofen Swelling Medium 02/20/2020 Advil Iodine Rash Medium 02/20/2020 Penicillins Swelling,Shortness o f breath High 11/26/2017 Breathing Difficulty Shellfish Containing Products Anaphylaxis High 02/20/2020 Medications LORazepam (ATIVAN) 0.5 mg tablet Take 1 tablet (0.5 mg total) by mouth daily as needed for anxiety 30 tablet 05/19/2024 Active Active Problems Problem Noted Date Diagnosed Date [...] referral. Assessment & Plan (06/07/2023 11:46 AM TRIMMER PRESS CLIPPINGS): Discontinue Wellbutrin. May be allergic. No signs [...] medications. Assessment & Plan (06/06/2023 7:46 AM TRIMMER PRESS CLIPPINGS): Improved on higher dosage of Ativan b.i.d.. Assessment & Plan (05/24/2023 11:14 AM TRIMMER PRESS CLIPPINGS): We will give her 0.5 mg b.i.d. because of affect is not lasting long enough. Panic attack 04/26/2023 Assessment & Plan (06/06/2023 7:46 AM TRIMMER PRESS CLIPPINGS): Continue Paxil at same dosage. Well controlled. Assessment & Plan (05/24/2023 11:19 AM TRIMMER PRESS CLIPPINGS): Continue Paxil at same dosage. Well controlled.. Assessment & Plan (04/26/2023 10:38 AM TRIMMER PRESS CLIPPINGS): It sounds like she is getting discrete panic attacks no more than once a day. We will try switching to Paxil. Discontinue Prozac Agitation 04/25/2023 Assessment & Plan (05/24/2023 11:13 AM TRIMMER PRESS CLIPPINGS): We will give her Ativan 0.5 mg [...] medications. Assessment & Plan (04/26/2023 10:37 AM TRIMMER PRESS CLIPPINGS): More of a problem in the morning. [...] medications. Severe bipolar I disorder with depression 2022 Assessment & Plan (04/02/2023 10:37 AM TRIMMER PRESS CLIPPINGS): Worsening of severe bipolar depression. Not suicidal/homicidal. No substance use. Problems with agitation. Anger issues. Recommend Psychiatry. Start on Prozac 10 mg daily along with Seroquel 50 mg HS. Mixed headache 04/02/2023 Assessment & Plan (04/02/2023 10:37 AM TRIMMER PRESS CLIPPINGS): Worsening of chronic mixed headache. Offered Inderal but declined. She is currently following with Neurology. History of substance use 03/06/2023 Bipolar depression 02/21/2023 Assessment & Plan (10/16/2023 9:03 AM [...] mg Assessment & Plan (06/07/2023 11:48 AM TRIMMER PRESS CLIPPINGS): We will increase Paxil to 40 mg. Discontinue Wellbutrin as it seems to be lowering her seizure threshold Assessment & Plan (05/24/2023 11:16 AM TRIMMER PRESS CLIPPINGS): Improved but needs further improvement. No history of seizures. Has been on Wellbutrin previously. We will add Wellbutrin to the Paxil. Assessment & Plan (04/26/2023 10:37 AM TRIMMER PRESS CLIPPINGS): But needs further improvement. As also panic attacks we will try switching from Prozac to Paxil 20 mg HS. Previous side effects on Lexapro. Elevated serum glucose 02/21/2023 Assessment & Plan (04/02/2023 10:39 AM TRIMMER PRESS CLIPPINGS): Only 1 reading elevated. Patient was encouraged [...] complication Assessment & Plan (03/29/2023 4:07 PM TRIMMER PRESS CLIPPINGS): Infrequent need for rescue inhaler no nocturnal symptoms Nonintractable generalized i diopathic epilepsy without status epilepticus 02/20/2020 Assessment & Plan (04/18/2021 11:34 AM TRIMMER PRESS CLIPPINGS): Patient continues on levetiracetam 1500 mg b.i.d.. As she may have had an unwitnessed seizure I have suggested that she remain without driving until filling a 6 month asymptomatic seizure interval. She will follow-up in neurology clinic in 6 months for reassessment. Assessment & Plan (06/02/2020 10:03 AM TRIMMER PRESS CLIPPINGS): Patient continues on levetiracetam 1500 mg b.i.d. at this time. She has had no interval documented seizures. She has good tolerability with medication. It will be continued as currently prescribed. Assessment & Plan (02/20/2020 10:01 AM CDT): Patient's former patient of [facility]. Prior medical records from [facility] have been obtained and reviewed with [...] 02/20/2020 Assessment & Plan (06/06/2023 7:47 AM TRIMMER PRESS CLIPPINGS): Continue Trileptal at same dosage. Well controlled. Assessment & Plan (05/22/2023 1:32 PM TRIMMER PRESS CLIPPINGS): Continue Oxcarbazepine at same dosage. Well controlled. Assessment & Plan (04/25/2023 8:22 AM TRIMMER PRESS CLIPPINGS): Continue medication at same dosage. Well controlled. Oxcarbazepine. Assessment & Plan (03/29/2023 4:10 PM TRIMMER PRESS CLIPPINGS): Continue Trileptal at same dosage. Well controlled. Assessment & Plan (04/18/2021 11:35 AM TRIMMER PRESS CLIPPINGS): Patient developed untoward sedation with amitriptyline. In substitution I will place her on a trial of nortriptyline 25 mg HS and obtain an MRI brain to exclude any structural abnormalities to account for her worsening headaches. She will follow-up in neurology clinic in 6 months for reassessment. Assessment & Plan (06/02/2020 10:04 AM TRIMMER PRESS CLIPPINGS): Patient has not increased her amitriptyline to [...] have suggested that she present to [facility] Emergency Room for consideration of further [...] 07/03/2017 Assessment & Plan (03/29/2023 4:08 PM TRIMMER PRESS CLIPPINGS): Discussed that elevated triglycerides at best treated by diet. Encourage ever to keep weight down and decrease fat and starches and diet other than vegetables. Less bread, rice, cereal, and other refined carbohydrates. Needs repeat labs Seizure disorder 07/03/2017 Assessment & Plan (10/14/2023 3:59 PM CDT): Continue Keppra at same dosage. Well controlled. Assessment & Plan (09/30/2023 2:35 PM CDT): Continue oxcarbazepine/Keppra at same dosage. Well controlled. Assessment & Plan (08/01/2023 10:13 AM CDT): Continue Keppra at same dosage. Well controlled. May ultimately be tapered by Neurology as these are atypical seizure Assessment & Plan (06/07/2023 11:49 AM TRIMMER PRESS CLIPPINGS): Continue Keppra at same dosage. This is being aggravated by the Wellbutrin and we will discontinue the Wellbutrin. Assessment & Plan (05/22/2023 1:32 PM TRIMMER PRESS CLIPPINGS): Continue Keppra at same dosage. Well controlled. Also followed by Neurology. Assessment & Plan (04/25/2023 8:23 AM TRIMMER PRESS CLIPPINGS): Continue Keppra. Management by Neurology Assessment & Plan (03/29/2023 4:10 PM TRIMMER PRESS CLIPPINGS): Continu Keppra at same dosage. Well controlled. Vitamin D deficiency 07/03/2017 Assessment & Plan (03/29/2023 4:08 PM TRIMMER PRESS CLIPPINGS): Not on Vitamin-D and needs repeat labs Family history of seizure disorder 05/09/2017 Resolved Problems Problem Noted Date Diagnosed Date Resolved Date Well adult exam 06/04/2024 06/04/2024 Immunizations Immunization Administration Dates Next Due DTaP 10/18/1999, 6,1994,10/11,1994 [...] staff should administer the PHQ-9) 2 10/16/2023 PHQ-9 Answer Date Recorded PHQ-9 Total Score 26 10/02/2023 Personal Safety Answer Date Recorded Have you ever been in or are you currently in a harmful physical or emotional relationship or is someone making you feel afraid or unsafe? Denies 08/10/2023 Comments No Sex and Gender Information Value Date Recorded Sex Assigned at Not on file Legal Sex Female 5:40 AM TRIMMER PRESS CLIPPINGS Gender Identity Female 11/19/2022 3:56 PM CDT Sexual Orientation Straight 11/19/2022 3: 56 PM CDT Last Filed Vital Signs Vital Sign Reading Time Taken Comments Blood Pressure 110/64 10/16/2023 8:27 AM CDT Pulse 92 10/16/2023 8:27 AM CDT Temperature 36.4 C (97.6 F) 10/16/2023 8:27 AM CDT Respiratory Rate 18 10/16/2023 8:27 AM CDT Oxygen Saturation 99% 10/16/2023 8:27 AM CDT Inhaled Oxygen Concentration - - Weight 85.5 kg (188 lb 8 oz) 10/16/2023 8:27 AM CDT Height 172.7 cm (5' 7.99 ) 10/16/2023 8:27 AM CD T Body Mass Index 28.67 10/16/2023 8:27 AM CDT Plan of Treatment Not on file Insurance [facility] [address] Care Teams Report Specialist Relationship Specialty Start Date End Date Gomez Aceves MD [address] [place] [address] PCP - General Family Medicine 04/02/23 Madeline Kim NP [address] [place] [address] Nurse Practitioner Neurology 04/02/23
--- OUTSIDE RECORDS SUMMARY | 2024-07-17 16:13 | XMS_ITS | Clinical Summary ---
Author Organization [facility] Address [address] [place] [address] Care Team Providers Care Insurance Premium Auditor Name Role Phone Gomez Aceves MD Primary Care Provider [phone] Madeline Kim NP Unavailable [phone] Allergies Active Allergy Reactions Criticality Noted Date [...] referral. Assessment & Plan (06/07/2023 11:46 AM WHEELAGE CLERK): Discontinue Wellbutrin. May be allergic. No signs [...] medications. Assessment & Plan (06/06/2023 7:46 AM WHEELAGE CLERK): Improved on higher dosage of Ativan b.i.d.. Assessment & Plan (05/24/2023 11:14 AM WHEELAGE CLERK): We will give her 0.5 mg b.i.d. because of affect is not lasting long enough. Panic attack 04/26/2023 Assessment & Plan (06/06/2023 7:46 AM WHEELAGE CLERK): Continue Paxil at same dosage. Well controlled. Assessment & Plan (05/24/2023 11:19 AM WHEELAGE CLERK): Continue Paxil at same dosage. Well controlled.. Assessment & Plan (04/26/2023 10:38 AM WHEELAGE CLERK): It sounds like she is getting discrete panic attacks no more than once a day. We will try switching to Paxil. Discontinue Prozac Agitation 04/25/2023 Assessment & Plan (05/24/2023 11:13 AM WHEELAGE CLERK): We will give her Ativan 0.5 mg [...] medications. Assessment & Plan (04/26/2023 10:37 AM WHEELAGE CLERK): More of a problem in the morning. [...] 2022 Assessment & Plan (04/02/2023 10:37 AM WHEELAGE CLERK): Worsening of severe bipolar depression. Not suicidal/homicidal. No substance use. Problems with agitation. Anger issues. Recommend Psychiatry. Start on Prozac 10 mg daily along with Seroquel 50 mg HS. Mixed headache 04/02/2023 Assessment & Plan (04/02/2023 10:37 AM WHEELAGE CLERK): Worsening of chronic mixed headache. Offered Inderal [...] mg Assessment & Plan (06/07/2023 11:48 AM WHEELAGE CLERK): We will increase Paxil to 40 mg. Discontinue Wellbutrin as it seems to be lowering her seizure threshold Assessment & Plan (05/24/2023 11:16 AM WHEELAGE CLERK): Improved but needs further improvement. No history of seizures. Has been on Wellbutrin previously. We will add Wellbutrin to the Paxil. Assessment & Plan (04/26/2023 10:37 AM WHEELAGE CLERK): But needs further improvement. As also panic attacks we will try switching from Prozac to Paxil 20 mg HS. Previous side effects on Lexapro. Elevated serum glucose 02/21/2023 Assessment & Plan (04/02/2023 10:39 AM WHEELAGE CLERK): Only 1 reading elevated. Patient was encouraged [...] complication Assessment & Plan (03/29/2023 4:07 PM WHEELAGE CLERK): Infrequent need for rescue inhaler no nocturnal symptoms Nonintractable generalized i diopathic epilepsy without status epilepticus 02/20/2020 Assessment & Plan (04/18/2021 11:34 AM WHEELAGE CLERK): Patient continues on levetiracetam 1500 mg b.i.d.. As she may have had an unwitnessed seizure I have suggested that she remain without driving until filling a 6 month asymptomatic seizure interval. She will follow-up in neurology clinic in 6 months for reassessment. Assessment & Plan (06/02/2020 10:03 AM WHEELAGE CLERK): Patient continues on levetiracetam 1500 mg b.i.d. at this time. She has had no interval documented seizures. She has good tolerability with medication. It will be continued as currently prescribed. Assessment & Plan (02/20/2020 10:01 AM CDT): Patient's former patient of [facility]. Prior medical records from [facility] have been obtained and reviewed with [...] 02/20/2020 Assessment & Plan (06/06/2023 7:47 AM WHEELAGE CLERK): Continue Trileptal at same dosage. Well controlled. Assessment & Plan (05/22/2023 1:32 PM WHEELAGE CLERK): Continue Oxcarbazepine at same dosage. Well controlled. Assessment & Plan (04/25/2023 8:22 AM WHEELAGE CLERK): Continue medication at same dosage. Well controlled. Oxcarbazepine. Assessment & Plan (03/29/2023 4:10 PM WHEELAGE CLERK): Continue Trileptal at same dosage. Well controlled. Assessment & Plan (04/18/2021 11:35 AM WHEELAGE CLERK): Patient developed untoward sedation with amitriptyline. In substitution I will place her on a trial of nortriptyline 25 mg HS and obtain an MRI brain to exclude any structural abnormalities to account for her worsening headaches. She will follow-up in neurology clinic in 6 months for reassessment. Assessment & Plan (06/02/2020 10:04 AM WHEELAGE CLERK): Patient has not increased her amitriptyline to [...] I have suggested that she present to [facility] Emergency Room for consideration of further [...] 07/03/2017 Assessment & Plan (03/29/2023 4:08 PM WHEELAGE CLERK): Discussed that elevated triglycerides at best treated [...] seizure Assessment & Plan (06/07/2023 11:49 AM WHEELAGE CLERK): Continue Keppra at same dosage. This is being aggravated by the Wellbutrin and we will discontinue the Wellbutrin. Assessment & Plan (05/22/2023 1:32 PM WHEELAGE CLERK): Continue Keppra at same dosage. Well controlled. Also followed by Neurology. Assessment & Plan (04/25/2023 8:23 AM WHEELAGE CLERK): Continue Keppra. Management by Neurology Assessment & Plan (03/29/2023 4:10 PM WHEELAGE CLERK): Continu Keppra at same dosage. Well controlled. Vitamin D deficiency 07/03/2017 Assessment & Plan (03/29/2023 4:08 PM WHEELAGE CLERK): Not on Vitamin-D and needs repeat labs [...] History Medical History Date Comments Seizure disorder (HCC) Tobacco use Marijuana use Anemia Anxiety Asthma Meningitis Chronic bronchitis (HCC) Depression Migraines Hypertension Menstrual problem Bipolar depression (HCC) Bipolar II disorder (HCC) Atypical chest pain Family History Medical History Relation Name Comments No Known Problems Brother Depression Father Catracho Barclay Drug abuse Father Catracho Barclay Hypertension Father Catracho Deny SL[place] Alzheimer's disease Maternal Grandfather Catracho Yumiko briceno SR Allergy (severe) Maternal Grandmother Eliezer Call Cancer Maternal Grandmother Eliezer Call Diabetes Maternal Grandmother Eliezer Call Heart attack Maternal Grandmother Eliezer Call Memory loss Maternal Grandmother Eliezer Call Anxiety disorder Mother Bipolar disorder Mother Epilepsy Sister Hyperthyroidism Sister Relation Name Status Comments Brother Alive Father Catracho Barclay JR Alive Maternal Grandfather Catracho Call SR Maternal [...] on file Legal Sex Female 5:40 AM WHEELAGE CLERK Gender Identity Female 11/19/2022 3:56 PM CDT [...] Cancer Screening 1994 Hepatitis C Screening 1994 HPV Vaccines (3 - 2-dose series) 06/03/2009 02/02/20 09, 12/01/2008 Regular Well Visit/Exam 18-64 2012 Pneumococcal vaccine <65 (1 of 2 - PCV) 2013 DTaP/Tdap/Td Vaccine (7 - Td or Tdap) 12/15/2018 12/15/2008, 10/18/1999, 06/24/1995, Additional history exists Covid-19 Vaccine (3 - 2023-2 5 season) 2023 10/04/2020, 08/30/2020 Influenza Vaccine (#1) 2023 9, 02/06/2008, 03/27/2007, Additional history exists Depression Screening 10/15/2024 10/16/2023, 10/02/2023, 08/01/2023, Additional history exists Hepatitis B Screening Completed 10/18/1999 , 10/12/1999, 1994, Additional history exists Varicella Vaccines Completed 03/27/2007, 02/20/1997 Insurance Care Teams Insurance Premium Auditor Relationship Specialty Start Date End Date Gomez Aceves MD [address] [place] [address] PCP - General Family Medicine 04/02/23 Madeline Kim NP [address] [place] [address] Nurse Practitioner Neurology 04/02/23
--- OUTSIDE RECORDS SUMMARY | 2024-07-17 17:31 | XMS_ITS | Clinical Summary ---
Author Organization [facility] Address [address] [place] [address] Care Team Providers Care Director Of Hotel Name Role Phone Unavailable Primary Care Provider Unavailabl e Source Comments [facility],non-owned Affiliates and Associated Physician Practices is amultiple site organization consisting of ambulatory clinics and hospital sitesin [place], [place], [place] and [place]. This disclosure is being madepursuant to the Care Everywhere program and may not contain all information available regarding this patient. Last updated 18.[facility] Active Problems Patient Care Coordination No [...] Sex Assigned at Female 06/03/2023 1:35 PM INVESTMENT ACCOUNTANT Gender Identity Female 06/03/2023 1:35 PM INVESTMENT ACCOUNTANT Sexual Orientation Straight 06/03/2023 1: 35 PM INVESTMENT ACCOUNTANT Plan of Treatment Health Maintenance Due Date [...]
--- OUTSIDE RECORDS SUMMARY | 2024-07-17 17:31 | XMS_ITS | Referral Summary ---
Author Organization [facility] Address [address] [place] [address] Care Team Providers Care Livestock Farmer Name Role Phone Gomez Aceves MD Primary Care Provider [phone] Madeline Kim NP Unavailable [phone] Allergies Active Allergy Reactions Criticality Noted Date [...] referral. Assessment & Plan (06/07/2023 11:46 AM MINK RANCHER): Discontinue Wellbutrin. May be allergic. No signs [...] medications. Assessment & Plan (06/06/2023 7:46 AM MINK RANCHER): Improved on higher dosage of Ativan b.i.d.. Assessment & Plan (05/24/2023 11:14 AM MINK RANCHER): We will give her 0.5 mg b.i.d. because of affect is not lasting long enough. Panic attack 04/26/2023 Assessment & Plan (06/06/2023 7:46 AM MINK RANCHER): Continue Paxil at same dosage. Well controlled. Assessment & Plan (05/24/2023 11:19 AM MINK RANCHER): Continue Paxil at same dosage. Well controlled.. Assessment & Plan (04/26/2023 10:38 AM MINK RANCHER): It sounds like she is getting discrete panic attacks no more than once a day. We will try switching to Paxil. Discontinue Prozac Agitation 04/25/2023 Assessment & Plan (05/24/2023 11:13 AM MINK RANCHER): We will give her Ativan 0.5 mg [...] medications. Assessment & Plan (04/26/2023 10:37 AM MINK RANCHER): More of a problem in the morning. [...] 2022 Assessment & Plan (04/02/2023 10:37 AM MINK RANCHER): Worsening of severe bipolar depression. Not suicidal/homicidal. No substance use. Problems with agitation. Anger issues. Recommend Psychiatry. Start on Prozac 10 mg daily along with Seroquel 50 mg HS. Mixed headache 04/02/2023 Assessment & Plan (04/02/2023 10:37 AM MINK RANCHER): Worsening of chronic mixed headache. Offered Inderal [...] mg Assessment & Plan (06/07/2023 11:48 AM MINK RANCHER): We will increase Paxil to 40 mg. Discontinue Wellbutrin as it seems to be lowering her seizure threshold Assessment & Plan (05/24/2023 11:16 AM MINK RANCHER): Improved but needs further improvement. No history of seizures. Has been on Wellbutrin previously. We will add Wellbutrin to the Paxil. Assessment & Plan (04/26/2023 10:37 AM MINK RANCHER): But needs further improvement. As also panic attacks we will try switching from Prozac to Paxil 20 mg HS. Previous side effects on Lexapro. Elevated serum glucose 02/21/2023 Assessment & Plan (04/02/2023 10:39 AM MINK RANCHER): Only 1 reading elevated. Patient was encouraged [...] complication Assessment & Plan (03/29/2023 4:07 PM MINK RANCHER): Infrequent need for rescue inhaler no nocturnal symptoms Nonintractable generalized i diopathic epilepsy without status epilepticus 02/20/2020 Assessment & Plan (04/18/2021 11:34 AM MINK RANCHER): Patient continues on levetiracetam 1500 mg b.i.d.. As she may have had an unwitnessed seizure I have suggested that she remain without driving until filling a 6 month asymptomatic seizure interval. She will follow-up in neurology clinic in 6 months for reassessment. Assessment & Plan (06/02/2020 10:03 AM MINK RANCHER): Patient continues on levetiracetam 1500 mg b.i.d. at this time. She has had no interval documented seizures. She has good tolerability with medication. It will be continued as currently prescribed. Assessment & Plan (02/20/2020 10:01 AM CDT): Patient's former patient of [facility]. Prior medical records from [facility] have been obtained and reviewed with [...] 02/20/2020 Assessment & Plan (06/06/2023 7:47 AM MINK RANCHER): Continue Trileptal at same dosage. Well controlled. Assessment & Plan (05/22/2023 1:32 PM MINK RANCHER): Continue Oxcarbazepine at same dosage. Well controlled. Assessment & Plan (04/25/2023 8:22 AM MINK RANCHER): Continue medication at same dosage. Well controlled. Oxcarbazepine. Assessment & Plan (03/29/2023 4:10 PM MINK RANCHER): Continue Trileptal at same dosage. Well controlled. Assessment & Plan (04/18/2021 11:35 AM MINK RANCHER): Patient developed untoward sedation with amitriptyline. In substitution I will place her on a trial of nortriptyline 25 mg HS and obtain an MRI brain to exclude any structural abnormalities to account for her worsening headaches. She will follow-up in neurology clinic in 6 months for reassessment. Assessment & Plan (06/02/2020 10:04 AM MINK RANCHER): Patient has not increased her amitriptyline to [...] I have suggested that she present to [facility] Emergency Room for consideration of [...] 07/03/2017 Assessment & Plan (03/29/2023 4:08 PM MINK RANCHER): Discussed that elevated triglycerides at best treated [...] seizure Assessment & Plan (06/07/2023 11:49 AM MINK RANCHER): Continue Keppra at same dosage. This is being aggravated by the Wellbutrin and we will discontinue the Wellbutrin. Assessment & Plan (05/22/2023 1:32 PM MINK RANCHER): Continue Keppra at same dosage. Well controlled. Also followed by Neurology. Assessment & Plan (04/25/2023 8:23 AM MINK RANCHER): Continue Keppra. Management by Neurology Assessment & Plan (03/29/2023 4:10 PM MINK RANCHER): Continu Keppra at same dosage. Well controlled. Vitamin D deficiency 07/03/2017 Assessment & Plan (03/29/2023 4:08 PM MINK RANCHER): Not on Vitamin-D and needs repeat labs [...] on file Legal Sex Female 5:40 AM MINK RANCHER Gender Identity Female 11/19/2022 3:56 PM CDT [...] Plan of Treatment Not on file Insurance [facility] [address] Care Teams Livestock Farmer Relationship Specialty Start Date End Date Gomez Aceves MD [address] [place] [address] PCP - General Family Medicine 04/02/23 Madeline Kim NP [address] [place] [address] Nurse Practitioner Neurology 04/02/23
--- OUTSIDE RECORDS SUMMARY | 2024-07-17 17:31 | XMS_ITS | Clinical Summary ---
Author Organization [facility] Address [address] [place] [address] Care Team Providers Care Scrap Preparer Name Role Phone Gomez Aceves MD Primary Care Provider [phone] Madeline Kim NP Unavailable [phone] Allergies Active Allergy Reactions Criticality Noted Date [...] referral. Assessment & Plan (06/07/2023 11:46 AM ENERGY SYSTEMS LABORATORY DIRECTOR): Discontinue Wellbutrin. May be allergic. No signs [...] medications. Assessment & Plan (06/06/2023 7:46 AM ENERGY SYSTEMS LABORATORY DIRECTOR): Improved on higher dosage of Ativan b.i.d.. Assessment & Plan (05/24/2023 11:14 AM ENERGY SYSTEMS LABORATORY DIRECTOR): We will give her 0.5 mg b.i.d. because of affect is not lasting long enough. Panic attack 04/26/2023 Assessment & Plan (06/06/2023 7:46 AM ENERGY SYSTEMS LABORATORY DIRECTOR): Continue Paxil at same dosage. Well controlled. Assessment & Plan (05/24/2023 11:19 AM ENERGY SYSTEMS LABORATORY DIRECTOR): Continue Paxil at same dosage. Well controlled.. Assessment & Plan (04/26/2023 10:38 AM ENERGY SYSTEMS LABORATORY DIRECTOR): It sounds like she is getting discrete panic attacks no more than once a day. We will try switching to Paxil. Discontinue Prozac Agitation 04/25/2023 Assessment & Plan (05/24/2023 11:13 AM ENERGY SYSTEMS LABORATORY DIRECTOR): We will give her Ativan 0.5 mg [...] medications. Assessment & Plan (04/26/2023 10:37 AM ENERGY SYSTEMS LABORATORY DIRECTOR): More of a problem in the morning. [...] 2022 Assessment & Plan (04/02/2023 10:37 AM ENERGY SYSTEMS LABORATORY DIRECTOR): Worsening of severe bipolar depression. Not suicidal/homicidal. No substance use. Problems with agitation. Anger issues. Recommend Psychiatry. Start on Prozac 10 mg daily along with Seroquel 50 mg HS. Mixed headache 04/02/2023 Assessment & Plan (04/02/2023 10:37 AM ENERGY SYSTEMS LABORATORY DIRECTOR): Worsening of chronic mixed headache. Offered Inderal [...] mg Assessment & Plan (06/07/2023 11:48 AM ENERGY SYSTEMS LABORATORY DIRECTOR): We will increase Paxil to 40 mg. Discontinue Wellbutrin as it seems to be lowering her seizure threshold Assessment & Plan (05/24/2023 11:16 AM ENERGY SYSTEMS LABORATORY DIRECTOR): Improved but needs further improvement. No history of seizures. Has been on Wellbutrin previously. We will add Wellbutrin to the Paxil. Assessment & Plan (04/26/2023 10:37 AM ENERGY SYSTEMS LABORATORY DIRECTOR): But needs further improvement. As also panic attacks we will try switching from Prozac to Paxil 20 mg HS. Previous side effects on Lexapro. Elevated serum glucose 02/21/2023 Assessment & Plan (04/02/2023 10:39 AM ENERGY SYSTEMS LABORATORY DIRECTOR): Only 1 reading elevated. Patient was encouraged [...] complication Assessment & Plan (03/29/2023 4:07 PM ENERGY SYSTEMS LABORATORY DIRECTOR): Infrequent need for rescue inhaler no nocturnal symptoms Nonintractable generalized i diopathic epilepsy without status epilepticus 02/20/2020 Assessment & Plan (04/18/2021 11:34 AM ENERGY SYSTEMS LABORATORY DIRECTOR): Patient continues on levetiracetam 1500 mg b.i.d.. As she may have had an unwitnessed seizure I have suggested that she remain without driving until filling a 6 month asymptomatic seizure interval. She will follow-up in neurology clinic in 6 months for reassessment. Assessment & Plan (06/02/2020 10:03 AM ENERGY SYSTEMS LABORATORY DIRECTOR): Patient continues on levetiracetam 1500 mg b.i.d. at this time. She has had no interval documented seizures. She has good tolerability with medication. It will be continued as currently prescribed. Assessment & Plan (02/20/2020 10:01 AM CDT): Patient's former patient of [facility]. Prior medical records from [facility] have been obtained and reviewed with [...] 02/20/2020 Assessment & Plan (06/06/2023 7:47 AM ENERGY SYSTEMS LABORATORY DIRECTOR): Continue Trileptal at same dosage. Well controlled. Assessment & Plan (05/22/2023 1:32 PM ENERGY SYSTEMS LABORATORY DIRECTOR): Continue Oxcarbazepine at same dosage. Well controlled. Assessment & Plan (04/25/2023 8:22 AM ENERGY SYSTEMS LABORATORY DIRECTOR): Continue medication at same dosage. Well controlled. Oxcarbazepine. Assessment & Plan (03/29/2023 4:10 PM ENERGY SYSTEMS LABORATORY DIRECTOR): Continue Trileptal at same dosage. Well controlled. Assessment & Plan (04/18/2021 11:35 AM ENERGY SYSTEMS LABORATORY DIRECTOR): Patient developed untoward sedation with amitriptyline. In substitution I will place her on a trial of nortriptyline 25 mg HS and obtain an MRI brain to exclude any structural abnormalities to account for her worsening headaches. She will follow-up in neurology clinic in 6 months for reassessment. Assessment & Plan (06/02/2020 10:04 AM ENERGY SYSTEMS LABORATORY DIRECTOR): Patient has not increased her amitriptyline to [...] I have suggested that she present to [facility] Emergency Room for consideration of further [...] 07/03/2017 Assessment & Plan (03/29/2023 4:08 PM ENERGY SYSTEMS LABORATORY DIRECTOR): Discussed that elevated triglycerides at best treated [...] seizure Assessment & Plan (06/07/2023 11:49 AM ENERGY SYSTEMS LABORATORY DIRECTOR): Continue Keppra at same dosage. This is being aggravated by the Wellbutrin and we will discontinue the Wellbutrin. Assessment & Plan (05/22/2023 1:32 PM ENERGY SYSTEMS LABORATORY DIRECTOR): Continue Keppra at same dosage. Well controlled. Also followed by Neurology. Assessment & Plan (04/25/2023 8:23 AM ENERGY SYSTEMS LABORATORY DIRECTOR): Continue Keppra. Management by Neurology Assessment & Plan (03/29/2023 4:10 PM ENERGY SYSTEMS LABORATORY DIRECTOR): Continu Keppra at same dosage. Well controlled. Vitamin D deficiency 07/03/2017 Assessment & Plan (03/29/2023 4:08 PM ENERGY SYSTEMS LABORATORY DIRECTOR): Not on Vitamin-D and needs repeat labs [...] on file Legal Sex Female 5:40 AM ENERGY SYSTEMS LABORATORY DIRECTOR Gender Identity Female 11/19/2022 3:56 PM CDT [...] Vaccines Completed 03/27/2007, 02/20/1997 Insurance Care Teams Scrap Preparer Relationship Specialty Start Date End Date Gomez Aceves MD [address] [place] [address] PCP - General Family Medicine 04/02/23 Madeline Kim NP [address] [place] [address] Nurse Practitioner Neurology 04/02/23
--- NOTE | 2024-07-17 17:54 | ECG_ITS ---
Test Date: 2024-07-17 19:15:50 Measurements Intervals [place] Rate: 79 P: 55 OR: 149 QRS: 69 QRSD: 77 T: 53 QT: 359 QTc: 412 Interpretive Statements SINUS RHYTHM WITH SINUS ARRHYTHMIA POSSIBLE LEFT ATRIAL ENLARGEMENT [-0.1mV P WAVE IN V1/V2] No previous ECG available for comparison Electronically Signed On 07-18-2024 10:39:58 CDT by Helen Pavon M.D.
--- NOTE | 2024-07-17 17:59 | ED.GENADULT ---
HPI - General Adult General Chief complaint: Shortness of Breath/Dyspnea <Jackson Irby MD - Last Filed: 07/17/24 19:11> Stated complaint: sob after vaping <Jackson Irby MD - Last Filed: 07/17/24 19:11> Time Seen by Provider: 07/17/24 16:39 <Jackson Irby MD - Last Filed: 07/17/24 19:11> History of Present Illness HPI narrative: This is a 29-year-old female history of MRSA pneumonia presenting for fevers and cough. She was hospitalized in early May of this year for MRSA pneumonia. Patient says she found the found this same vape that she had been using at that time and used again. Over last 2 days she has had fevers as high as 101 and a productive cough. She also has chest tightness. She denies lower extremity edema nausea vomiting diarrhea or urinary symptoms. She denies history of IV drug use although does have remote history of methamphetamine abuse. <Jackson Irby MD - Last Filed: 07/17/24 19:11> Related Data Home medications: Home Medications ?Medication ?Instructions ?Recorded ?Confirmed ?Last Taken ?Type lorazepam 0.5 mg tablet 0.5 mg PO DAILY PRN anxiety 05/15/24 05/26/24 05/25/24 History <Jackson Irby MD - Last Filed: 07/17/24 19:11> Allergies/adverse reactions: Allergies Allergy/AdvReac Type Severity Reaction Status Date / Time codeine Allergy Severe Anaphylaxis Verified 05/26/24 19:14 Penicillins Allergy Severe Anaphylaxis Verified 05/26/24 19:14 shellfish derived Allergy Severe Anaphylaxis Verified 05/26/24 19:14 iodine Allergy Intermediate Hives Verified 05/26/24 19:14 <Jackson Irby MD - Last Filed: 07/17/24 19:11> [facility] Past Medical History Medical History: Medical History (Updated 07/17/24 @ 19:59 by Connie Bocanegra MD) Hyperthyroidism Anxiety Depression <Jackson Irby MD - Last Filed: 07/17/24 19:11> Surgical History Surgical History: Surgical History History of tonsillectomy and adenoidectomy History of tubal ligation History of cholecystectomy (11/2016) <Jackson Irby MD - Last Filed: 07/17/24 19:11> Family History Family History: Family History Father Hypertension Mother Hypertension Grandparent Cancer of lymph and blood cells Brain cancer Lung cancer <Jackson Irby MD - Last Filed: 07/17/24 19:11> Social History Social History: Social History Social History: Surrogate medical decision maker: Eliezer Call, mother ([phone]). Code status: Full code. Smoking packs per day: 1 Smoking cigarettes per day: 20.0 Years smoked: 15 Smoking pack-years: 15.00 Smoking status: Current every day smoker Tobacco type: cigarettes Smoking end date: 05/18/24 Alcohol intake: never Substance use: current Substance use type: marijuana Last use: 05/18/24 Do You Feel Safe in your Home?: Yes Lack of Transportation: YES Lack of Food: Never True Current Housing: I Have Housing Concerned About Future Housing: No Difficulty Paying Gas/Electric Bills: No Difficulty Paying for Meds: No Currently Unemployed: No Education: Associate Degree Difficulty w/ Childcare or Family Care: No Spiritual care concerns: No <Jackson Irby MD - Last Filed: 07/17/24 19:11> Exam Narrative: APPEARANCE: No apparent distress. Head: atraumatic. EYES: EOMI, NOSE: Atraumatic NECK: Trachea midline RESPIRATORY: No increased rate of breathing CTAB CARDIOVASCULAR: RRR, no peripheral edema ABDOMINAL: Non-distended soft nontender MUSCULOSKELETAl: No obvious deformities NEURO: Alert. Moving 4/4 extremities SKIN:: Warm, dry. Normal color PSYCHIATRIC: Normal affect <Jackson Irby MD - Last Filed: 07/17/24 19:11> Course Course Emergency Course: Patient signed out to me pending her workup. She has a history of MRSA pneumonia. Her workup is reviewed as below. Imaging suspicious for resolving pneumonia which is understandable given patient's recent diagnosis of this that required hospitalization and antibiotics. I did reassess patient at bedside. She is receiving IV fluids and we discussed her lab and imaging findings. She does note that she was cleaning and sound or nicotine vape pen and when she started using this a few days ago is when her symptoms started. We discussed that this will a pneumonia, most for a while and that she should rest and maintain her hydration. We discussed [id number] options for medications as well as the use of honey. Will also prescribe Tessalon Perles and Cepacol lozenges. Patient otherwise stable for discharge. She does not require a work note. <Connie Bocanegra MD - Last Filed: 07/17/24 20:21> Vital Signs Vital signs: Vital Signs Temperature 97.2 F L 07/17/24 15:21 Pulse Rate 95 07/17/24 15:21 Respiratory Rate 18 07/17/24 15:21 Blood Pressure 131/76 07/17/24 15:21 Pulse Oximetry 96 07/17/24 15:21 Oxygen Delivery Room Air 07/17/24 15:21 Temperature 97.2 F L 07/17/24 15:21 Pulse Rate 95 07/17/24 15:21 Respiratory Rate 18 07/17/24 15:21 Blood Pressure 131/76 07/17/24 15:21 Pulse Oximetry 96 07/17/24 15:21 Oxygen Delivery Room Air 07/17/24 15:21 <Jackson Irby MD - Last Filed: 07/17/24 19:11> Vital Signs Temperature 97.2 F L 07/17/24 15:21 Pulse Rate 95 07/17/24 15:21 Respiratory Rate 18 07/17/24 15:21 Blood Pressure 131/76 07/17/24 15:21 Pulse Oximetry 96 07/17/24 15:21 Oxygen Delivery Room Air 07/17/24 15:21 Temperature 97.2 F L 07/17/24 15:21 Pulse Rate 95 07/17/24 15:21 Respiratory Rate 18 07/17/24 15:21 Blood Pressure 131/76 07/17/24 15:21 Pulse Oximetry 96 07/17/24 15:21 Oxygen Delivery Room Air 07/17/24 15:21 <Connie Bocanegra MD - Last Filed: 07/17/24 20:21> Medical Decision Making MDM Narrative Medical decision making narrative: -Course: 29-year-old female with history of MRSA pneumonia presenting for fevers chest pain difficulty breathing. Patient signed out to the oncoming physician pending completion of her workup. <Jackson Irby MD - Last Filed: 07/17/24 19:11> Vital Signs Vital Signs: Vital Signs Temperature 97.2 F L 07/17/24 15:21 Pulse Rate 95 07/17/24 15:21 Respiratory Rate 18 07/17/24 15:21 Blood Pressure 131/76 07/17/24 15:21 Pulse Oximetry 96 07/17/24 15:21 Oxygen Delivery Room Air 07/17/24 15:21 Temperature 97.2 F L 07/17/24 15:21 Pulse Rate 95 07/17/24 15:21 Respiratory Rate 18 07/17/24 15:21 Blood Pressure 131/76 07/17/24 15:21 Pulse Oximetry 96 07/17/24 15:21 Oxygen Delivery Room Air 07/17/24 15:21 <Jackson Irby MD - Last Filed: 07/17/24 19:11> Vital Signs Temperature 97.2 F L 07/17/24 15:21 Pulse Rate 95 07/17/24 15:21 Respiratory Rate 18 07/17/24 15:21 Blood Pressure 131/76 07/17/24 15:21 Pulse Oximetry 96 07/17/24 15:21 Oxygen Delivery Room Air 07/17/24 15:21 Temperature 97.2 F L 07/17/24 15:21 Pulse Rate 95 07/17/24 15:21 Respiratory Rate 18 07/17/24 15:21 Blood Pressure 131/76 07/17/24 15:21 Pulse Oximetry 96 07/17/24 15:21 Oxygen Delivery Room Air 07/17/24 15:21 <Connie Bocanegra MD - Last Filed: 07/17/24 20:21> Lab Data Lab results reviewed: Yes I reviewed the patient's lab results. <Connie Bocanegra MD - Last Filed: 07/17/24 20:21> Lab results narrative: Elevated hemoglobinand Hct, suspect a degree of hemoconcentration when compared to previous. Normal renal function. No marked electrolyte abnormalities. 4+ bacteriuria but with moderate squamous cells and no other indices of infection. Lactic acid normal. test negative. Cannabinoids and amphetamines in UDS. <Connie Bocanegra MD - Last Filed: 07/17/24 20:21> Result diagrams: 07/17/24 19:00 07/17/24 19:00 <Jackson Irby MD - Last Filed: 07/17/24 19:11> Labs: Lab Results 07/17/24 07/17/24 07/17/24 Range/Units 19:00 19:05 19:06 WBC 9.1 (4.5-10.0) K/mm3 RBC 5.89 H (4.2-5.4) M/mm3 Hgb 16.2 H D (12.0-15.0) g/dL Hct 48.2 H (37.0-47.0) % MCV 81.8 (80-100) fl MCH 27.5 (26-34) pg MCHC 33.6 (32-36) g/dl RDW 14.0 (11.5-14.5) % Plt Count 300 (150-375) k/mm3 MPV 9.1 (7.4-10.4) fl Immature Gran % (Auto) 0.2 (0-0.5) % Neut % (Auto) 60.7 (45.5-73.1) % Lymph % (Auto) 30.4 (18.3-44.2) % [place] % (Auto) 6.0 (2.6-8.5) % Eos % (Auto) 2.5 (0-4.4) % Baso % (Auto) 0.2 (0.2-1.2) % Lymph # (Auto) 2.76 (0.9-3.2) K/mm3 [place] # (Auto) 0.5 (0.1-0.6) K/mm3 Eos # (Auto) 0.2 (0-0.3) K/mm3 Baso # (Auto) 0.0 (0.0-0.1) K/mm3 Abs Immat Gran (auto) 0.02 (0.00-0.031) K/mm3 Absolute Neuts (auto) 5.5 (1.3-6.7) K/mm3 Absolute Nucleated RBC 0.000 (0.0-0.012) K/mm3 Nucleated RBC % 0.0 (0.0-0.2) % Sodium 138 (137-145) mmol/L Potassium 4.3 (3.4-5.0) mmol/L Chloride 103 (98-107) mmol/L Carbon Dioxide 23 (22-30) mmol/L Anion Gap 12 (4-12) mmol/L BUN 11 D (7-17) mg/dL Creatinine 0.65 L (0.7-1.0) mg/dL Estim Creat Clear Calc 109 ml/min Estimated GFR > 60 (59 - ) Glucose 97 (65-110) mg/dL POC Capillary Glucose (65-105) mg/dl Lactic Acid 1.6 (0.7-2.0) mmol/L Calcium 9.8 (8.4-10.2) mg/dL Total Bilirubin 0.6 (0.2-1.3) mg/dL AST 17 (14-36) U/L ALT 17 (6-35) U/L Alkaline Phosphatase 123 (38-126) U/L Total Protein 8.0 (6.3-8.2) g/dL Albumin 5.0 (3.5-5.1) g/dL Urine Color Yellow (Yellow) Urine Appearance Cloudy H (Clear) Urine pH 5.5 (5.0-9.0) Ur Specific [place] 1.030 (1.001-1.035) Urine Protein Trace (Negative) mg/dL Urine Glucose (UA) Negative (Negative) mg/dL Urine Ketones Trace H (Negative) mg/dL Ur Blood (Man) Negative (Negative) Urine Nitrate Negative (Negative) Urine Bilirubin Negative (Negative) Urine Urobilinogen 0.2 (<2.0) mg/dL Leukocyte Esterase Rfl Negative (Negative) KILEY/UL Urine RBC 0-2 (0-2) /hpf Urine WBC 0-5 (0-3) /hpf Ur Squamous Epith Cells Moderate (Few) /hpf Urine Bacteria 4+ H /hpf Urine Casts 0-2 POC Urine HCG, Qual Negative (Negative) Urine Opiates Screen Negative (Negative) Urine Methadone Screen Negative (Negative) Ur Barbiturates Screen Negative (Negative) Ur Phencyclidine Scrn Negative (Negative) Ur Amphetamine Screen Positive A (Negative) U Benzodiazepines Scrn Negative (Negative) Urine Cocaine Screen Negative (Negative) U Cannabinoids Screen Positive A (Negative) Influenza A (RT-PCR) Negative (Negative) Influenza B (RT-PCR) Negative (Negative) RSV (RT-PCR) Negative (Negative) SARS-CoV-2 RNA (RT-PCR) Negative (Negative) 07/17/24 Range/Units 19:10 WBC (4.5-10.0) K/mm3 RBC (4.2-5.4) M/mm3 Hgb (12.0-15.0) g/dL Hct (37.0-47.0) % MCV (80-100) fl MCH (26-34) pg MCHC (32-36) g/dl RDW (11.5-14.5) % Plt Count (150-375) k/mm3 MPV (7.4-10.4) fl Immature Gran % (Auto) (0-0.5) % Neut % (Auto) (45.5-73.1) % Lymph % (Auto) (18.3-44.2) % [place] % (Auto) (2.6-8.5) % Eos % (Auto) (0-4.4) % Baso % (Auto) (0.2-1.2) % Lymph # (Auto) (0.9-3.2) K/mm3 [place] # (Auto) (0.1-0.6) K/mm3 Eos # (Auto) (0-0.3) K/mm3 Baso # (Auto) (0.0-0.1) K/mm3 Abs Immat Gran (auto) (0.00-0.031) K/mm3 Absolute Neuts (auto) (1.3-6.7) K/mm3 Absolute Nucleated RBC (0.0-0.012) K/mm3 Nucleated RBC % (0.0-0.2) % Sodium (137-145) mmol/L Potassium (3.4-5.0) mmol/L Chloride (98-107) mmol/L Carbon Dioxide (22-30) mmol/L Anion Gap (4-12) mmol/L BUN (7-17) mg/dL Creatinine (0.7-1.0) mg/dL Estim Creat Clear Calc ml/min Estimated GFR (59 - ) Glucose (65-110) mg/dL POC Capillary Glucose 97 (65-105) mg/dl Lactic Acid (0.7-2.0) mmol/L Calcium (8.4-10.2) mg/dL Total Bilirubin (0.2-1.3) mg/dL AST (14-36) U/L ALT (6-35) U/L Alkaline Phosphatase (38-126) U/L Total Protein (6.3-8.2) g/dL Albumin (3.5-5.1) g/dL Urine Color (Yellow) Urine Appearance (Clear) Urine pH (5.0-9.0) Ur Specific [place] (1.001-1.035) Urine Protein (Negative) mg/dL Urine Glucose (UA) (Negative) mg/dL Urine Ketones (Negative) mg/dL Ur Blood (Man) (Negative) Urine Nitrate (Negative) Urine Bilirubin (Negative) Urine Urobilinogen (<2.0) mg/dL Leukocyte Esterase Rfl (Negative) KLIEY/UL Urine RBC (0-2) /hpf Urine WBC (0-3) /hpf Ur Squamous Epith Cells (Few) /hpf Urine Bacteria /hpf Urine Casts POC Urine HCG, Qual (Negative) Urine Opiates Screen (Negative) Urine Methadone Screen (Negative) Ur Barbiturates Screen (Negative) Ur Phencyclidine Scrn (Negative) Ur Amphetamine Screen (Negative) U Benzodiazepines Scrn (Negative) Urine Cocaine Screen (Negative) U Cannabinoids Screen (Negative) Influenza A (RT-PCR) (Negative) Influenza B (RT-PCR) (Negative) RSV (RT-PCR) (Negative) SARS-CoV-2 RNA (RT-PCR) (Negative) <Jackson Irby MD - Last Filed: 07/17/24 19:11> Lab Results 07/17/24 07/17/24 07/17/24 Range/Units 19:00 19:05 19:06 WBC 9.1 (4.5-10.0) K/mm3 RBC 5.89 H (4.2-5.4) M/mm3 Hgb 16.2 H D (12.0-15.0) g/dL Hct 48.2 H (37.0-47.0) % MCV 81.8 (80-100) fl MCH 27.5 (26-34) pg MCHC 33.6 (32-36) g/dl RDW 14.0 (11.5-14.5) % Plt Count 300 (150-375) k/mm3 MPV 9.1 (7.4-10.4) fl Immature Gran % (Auto) 0.2 (0-0.5) % Neut % (Auto) 60.7 (45.5-73.1) % Lymph % (Auto) 30.4 (18.3-44.2) % [place] % (Auto) 6.0 (2.6-8.5) % Eos % (Auto) 2.5 (0-4.4) % Baso % (Auto) 0.2 (0.2-1.2) % Lymph # (Auto) 2.76 (0.9-3.2) K/mm3 [place] # (Auto) 0.5 (0.1-0.6) K/mm3 Eos # (Auto) 0.2 (0-0.3) K/mm3 Baso # (Auto) 0.0 (0.0-0.1) K/mm3 Abs Immat Gran (auto) 0.02 (0.00-0.031) K/mm3 Absolute Neuts (auto) 5.5 (1.3-6.7) K/mm3 Absolute Nucleated RBC 0.000 (0.0-0.012) K/mm3 Nucleated RBC % 0.0 (0.0-0.2) % Sodium 138 (137-145) mmol/L Potassium 4.3 (3.4-5.0) mmol/L Chloride 103 (98-107) mmol/L Carbon Dioxide 23 (22-30) mmol/L Anion Gap 12 (4-12) mmol/L BUN 11 D (7-17) mg/dL Creatinine 0.65 L (0.7-1.0) mg/dL Estim Creat Clear Calc 109 ml/min Estimated GFR > 60 (59 - ) Glucose 97 (65-110) mg/dL POC Capillary Glucose (65-105) mg/dl Lactic Acid 1.6 (0.7-2.0) mmol/L Calcium 9.8 (8.4-10.2) mg/dL Total Bilirubin 0.6 (0.2-1.3) mg/dL AST 17 (14-36) U/L ALT 17 (6-35) U/L Alkaline Phosphatase 123 (38-126) U/L Total Protein 8.0 (6.3-8.2) g/dL Albumin 5.0 (3.5-5.1) g/dL Urine Color Yellow (Yellow) Urine Appearance Cloudy H (Clear) Urine pH 5.5 (5.0-9.0) Ur Specific [place] 1.030 (1.001-1.035) Urine Protein Trace (Negative) mg/dL Urine Glucose (UA) Negative (Negative) mg/dL Urine Ketones Trace H (Negative) mg/dL Ur Blood (Man) Negative (Negative) Urine Nitrate Negative (Negative) Urine Bilirubin Negative (Negative) Urine Urobilinogen 0.2 (<2.0) mg/dL Leukocyte Esterase Rfl Negative (Negative) KILEY/UL Urine RBC 0-2 (0-2) /hpf Urine WBC 0-5 (0-3) /hpf Ur Squamous Epith Cells Moderate (Few) /hpf Urine Bacteria 4+ H /hpf Urine Casts 0-2 POC Urine HCG, Qual Negative (Negative) Urine Opiates Screen Negative (Negative) Urine Methadone Screen Negative (Negative) Ur Barbiturates Screen Negative (Negative) Ur Phencyclidine Scrn Negative (Negative) Ur Amphetamine Screen Positive A (Negative) U Benzodiazepines Scrn Negative (Negative) Urine Cocaine Screen Negative (Negative) U Cannabinoids Screen Positive A (Negative) Influenza A (RT-PCR) Negative (Negative) Influenza B (RT-PCR) Negative (Negative) RSV (RT-PCR) Negative (Negative) SARS-CoV-2 RNA (RT-PCR) Negative (Negative) 07/17/24 Range/Units 19:10 WBC (4.5-10.0) K/mm3 RBC (4.2-5.4) M/mm3 Hgb (12.0-15.0) g/dL Hct (37.0-47.0) % MCV (80-100) fl MCH (26-34) pg MCHC (32-36) g/dl RDW (11.5-14.5) % Plt Count (150-375) k/mm3 MPV (7.4-10.4) fl Immature Gran % (Auto) (0-0.5) % Neut % (Auto) (45.5-73.1) % Lymph % (Auto) (18.3-44.2) % [place] % (Auto) (2.6-8.5) % Eos % (Auto) (0-4.4) % Baso % (Auto) (0.2-1.2) % Lymph # (Auto) (0.9-3.2) K/mm3 [place] # (Auto) (0.1-0.6) K/mm3 Eos # (Auto) (0-0.3) K/mm3 Baso # (Auto) (0.0-0.1) K/mm3 Abs Immat Gran (auto) (0.00-0.031) K/mm3 Absolute Neuts (auto) (1.3-6.7) K/mm3 Absolute Nucleated RBC (0.0-0.012) K/mm3 Nucleated RBC % (0.0-0.2) % Sodium (137-145) mmol/L Potassium (3.4-5.0) mmol/L Chloride (98-107) mmol/L Carbon Dioxide (22-30) mmol/L Anion Gap (4-12) mmol/L BUN (7-17) mg/dL Creatinine (0.7-1.0) mg/dL Estim Creat Clear Calc ml/min Estimated GFR (59 - ) Glucose (65-110) mg/dL POC Capillary Glucose 97 (65-105) mg/dl Lactic Acid (0.7-2.0) mmol/L Calcium (8.4-10.2) mg/dL Total Bilirubin (0.2-1.3) mg/dL AST (14-36) U/L ALT (6-35) U/L Alkaline Phosphatase (38-126) U/L Total Protein (6.3-8.2) g/dL Albumin (3.5-5.1) g/dL Urine Color (Yellow) Urine Appearance (Clear) Urine pH (5.0-9.0) Ur Specific [place] (1.001-1.035) Urine Protein (Negative) mg/dL Urine Glucose (UA) (Negative) mg/dL Urine Ketones (Negative) mg/dL Ur Blood (Man) (Negative) Urine Nitrate (Negative) Urine Bilirubin (Negative) Urine Urobilinogen (<2.0) mg/dL Leukocyte Esterase Rfl (Negative) KILEY/UL Urine RBC (0-2) /hpf Urine WBC (0-3) /hpf Ur Squamous Epith Cells (Few) /hpf Urine Bacteria /hpf Urine Casts POC Urine HCG, Qual (Negative) Urine Opiates Screen (Negative) Urine Methadone Screen (Negative) Ur Barbiturates Screen (Negative) Ur Phencyclidine Scrn (Negative) Ur Amphetamine Screen (Negative) U Benzodiazepines Scrn (Negative) Urine Cocaine Screen (Negative) U Cannabinoids Screen (Negative) Influenza A (RT-PCR) (Negative) Influenza B (RT-PCR) (Negative) RSV (RT-PCR) (Negative) SARS-CoV-2 RNA (RT-PCR) (Negative) <Connie Bocanegra MD - Last Filed: 07/17/24 20:21> Imaging Data Radiologist's impression: Impressions Chest X-Ray 07/17/24 18:11 IMPRESSION: Prominent bronchovascular markings in the lower lobes with interstitial thickening which may indicate early or resolving pneumonia. <Connie Bocanegra MD - Last Filed: 07/17/24 20:21> Discharge Plan Discharge Clinical Impression: Cough, Vapes nicotine containing substance <Jackson Irby MD - Last Filed: 07/17/24 19:11> Patient Disposition: Home, Self-Care <Jackson Irby MD - Last Filed: 07/17/24 19:11> Condition: Stable <Jackson Irby MD - Last Filed: 07/17/24 19:11> Instructions: Antibiotic Form, Acute Cough (ED), Electronic Cigarettes and Your Health (ED) <Jackson Irby MD - Last Filed: 07/17/24 19:11> Additional Instructions: As we discussed, given the extent of your pneumonia earlier this year, you will likely continue to experience symptoms as your lungs continually try to heal. Rest and maintain your hydration. Acetaminophen/Tylenol (maximum 4000 mg per day) is safe to take with NSAIDs (ibuprofen/Motrin) for pain relief and fever. For the cough you can also use the prescribed medications. Recommend trialing smoking/vaping cessation as this can cause further injury. Follow-up with primary care physician. If you do not have 1 the name of the doctors listed below. Return to the emergency department with any new/worsen/unmanaged symptoms <Jackson Irby MD - Last Filed: 07/17/24 19:11> Patient Language: Citizen Of [place] <Jackson Irby MD - Last Filed: 07/17/24 19:11> Prescriptions: New benzonatate 100 mg capsule 100 mg PO BID PRN (Reason: cough) Qty: 20 0RF Cepacol Sore Throat-Cough 5-7.5 mg lozenge 1 sourav PO Q4H PRN (Reason: cough) Qty: 16 0RF ibuprofen 600 mg tablet 600 mg PO TID PRN (Reason: pain) Qty: 30 0RF acetaminophen 500 mg capsule 1,000 mg PO Q6H PRN (Reason: pain) Qty: 30 0RF No Action lorazepam 0.5 mg tablet 0.5 mg PO DAILY PRN (Reason: anxiety) albuterol sulfate [Ventolin HFA] 90 mcg/actuation HFA aerosol inhaler 2 puff inhalation QID PRN (Reason: shortness of breath or wheezing) Qty: 8.5 0RF linezolid 600 mg Tablet 600 mg PO Q12HR Qty: 19 0RF levofloxacin 750 mg tablet 750 mg PO DAILY Qty: 4 0RF <Jackson Irby MD - Last Filed: 07/17/24 19:11> Follow-up/Referrals: UNKNOWN,DOCTOR [Primary Care Provider] - Soledad Larsen DO [Physician] - (Family practice/primary care physician) <Jackson Irby MD - Last Filed: 07/17/24 19:11> Time of Disposition: 20:14 <Jackson Irby MD - Last Filed: 07/17/24 19:11> 20:14 <Connie Bocanegra MD - Last Filed: 07/17/24 20:21>
[2024-07-17 19:08] LABS: BEDSIDEPREGUCG Negative (Negative)
[2024-07-17 19:10] LABS: Basophils Percent Auto 0.2 % (0.2-1.2); Eosinophils Absolute Auto 0.2 K/mm3 (0-0.3); Eosinophils Percent Auto 2.5 % (0-4.4); Hematocrit 48.2 % (37.0-47.0); Hemoglobin 16.2 g/dL (12.0-15.0); Immature Granulocyte Absolute 0.02 K/mm3 (0.00-0.031); Immature Granulocyte Percent A 0.2 % (0-0.5); Lymphocytes Absolute Auto 2.76 K/mm3 (0.9-3.2); Lymphocytes Percent Auto 30.4 % (18.3-44.2); Mean Corpuscular HGB Conc 33.6 g/dl (32-36); Mean Corpuscular Hemoglobin 27.5 pg (26-34); Mean Corpuscular Volume 81.8 fl (80-100); Mean Platelet Volume 9.1 fl (7.4-10.4); Monocytes Absolute Auto 0.5 K/mm3 (0.1-0.6); Neutrophils Absolute Auto 5.5 K/mm3 (1.3-6.7); Neutrophils Percent Auto 60.7 % (45.5-73.1); Platelet Count Result 300 k/mm3 (150-375); Red Blood Count 5.89 M/mm3 (4.2-5.4); White Blood Count 9.1 K/mm3 (4.5-10.0)
[2024-07-17 19:13] LABS: Glucose Point of Care 97 mg/dl (65-105)
[2024-07-17 19:16] LABS: Add Urine Microscopic? YES; Appearance Urine Cloudy (Clear); Bacteria Urine 4+ /hpf; Bilirubin Urine Negative (Negative); Blood Urine Negative (Negative); Color Urine Yellow (Yellow); Glucose Urine UA Negative (Negative); Ketones Urine Trace mg/dL (Negative); Leukocyte Esterase Ur Negative LEU/UL (Negative); Nitrate Urine Negative (Negative); Non Pathogenic Casts 0-2; Protein Urine Trace mg/dL (Negative); RBC Urine 0-2 /hpf (0-2); Squamous Epithelial Cell Urine Moderate /hpf (Few); Urobilinogen Urine 0.2 mg/dL (<2.0); WBC Urine 0-5 /hpf (0-3); pH Urine 5.5 (5.0-9.0)
[2024-07-17] MEDS: SODIUM CHLORIDE 0.9% IV 1,000 ML 999 ML IV CONT (19:18)
[2024-07-17 19:20] LABS: Lactic Acid Reflex 1.6 mmol/L (0.7-2.0)
[2024-07-17 19:21] LABS: Alanine Aminotransferase 17 U/L (6-35); Alkaline Phosphatase 123 U/L (38-126); Anion Gap 12 mmol/L (4-12); Aspartate Amino Transferase 17 U/L (14-36); Bilirubin,Total 0.6 mg/dL (0.2-1.3); Blood Urea Nitrogen 11 mg/dL (7-17); Calcium 9.8 mg/dL (8.4-10.2); Carbon Dioxide 23 mmol/L (22-30); Chloride 103 mmol/L (98-107); Estimated CRCL calculation 109 ml/min; Estimated Glomerular Filt Rate > 60; Glucose 97 mg/dL (65-110); Potassium 4.3 mmol/L (3.4-5.0); Sodium 138 mmol/L (137-145)
[2024-07-17 19:31] LABS: Barbiturate Screen Urine Negative (Negative); Benzodiazepines Screen Urine Negative (Negative)
[2024-07-17 19:47] LABS: Influenza A QL RT-PCR Negative (Negative); Influenza B QL RT-PCR Negative (Negative); RSV RNA, RT-PCR Negative (Negative); SARS-CoV-2 RNA PCR Negative (Negative)
[2024-07-17 19:49] LABS: Cannabinoid Screen Urine Positive (Negative); Cocaine Screen Urine Negative (Negative); Methadone Screen Urine Negative (Negative); Opiate Screen Urine Negative (Negative); Phencyclidine Screen Urine Negative (Negative)
[2024-07-17 20:00] VITALS: BP 128/74; PULSE 86; RESP 14; O2SAT 98
[2024-07-17 20:05] LABS: Amphetamine Screen Urine Positive (Negative)
[2024-07-17] MEDS: BENZONATATE 100 MG CAPSULE PO (20:18)
== END 2024-07-17 20:25 | disposition home or self-care (01) ==
PROVIDERS: Emergency Medicine; Emergency Provider Student in an Organized Health Care Education/Training Program
DX: R05.9 Cough, unspecified (principal); F17.290 Nicotine dependence, other tobacco product, uncomplicated; Z20.822 Contact with and (suspected) exposure to COVID-19; E05.90 Thyrotoxicosis, unspecified without thyrotoxic crisis or storm; F41.9 Anxiety disorder, unspecified; F32.A Depression, unspecified; Z86.14 Personal history of Methicillin resistant Staphylococcus aureus infection; Z87.01 Personal history of pneumonia (recurrent); Z90.49 Acquired absence of other specified parts of digestive tract; R94.31 Abnormal electrocardiogram [ECG] [EKG]
CPT/HCPCS: 36415; 71045; 80053; 80307; 81001; 81025; 82948; 83605; 85025; 87637; 93005; 96360; 99283; A9270; J7030